=== PATIENT | male | born 1945 | race Caucasian/White ===

== ENCOUNTER 2016-10-28 19:55 | Observation (INO) | payer MEDICAID ==
--- NOTE | 2016-10-28 20:00 | EDPHY ---
HPI/HX/ROS/PE/MDM Narrative: CHIEF COMPLAINT: Chest pain HISTORY OF PRESENT ILLNESS: This patient is a 71-year-old male with history of hypertension and hyperlipidemia who presents to the Emergency Department complaining of acute onset epigastric abdominal pain with radiating chest discomfort beginning at 1130 today and worsening over time. He has a history of GERD and describes his pain as similar in quality to acid reflux episodes but states that the pain is more severe today. He denies radiation of pain to his back, neck, or jaw. He has induced vomiting as this improves his pain for about 5-10 minutes. He reports exertional dyspnea urgent been present for the last several weeks. It is gradually worsening. Denies fever, chills, palpitations, nausea, diarrhea, headache, or lightheadedness. He has a cardiology appointment scheduled for evaluation of right-sided pedal edema but denies any history of heart failure or coronary artery disease. He takes a baby aspirin daily. REVIEW OF SYSTEMS: Aside from elements discussed in the HPI, a comprehensive 10-point review of systems was reviewed and is negative. PAST MEDICAL HISTORY: 1. Hypertension (Diltiazem) 2. Hyperlipidemia (Pravastatin) 3. GERD 4. Remote history of inguinal hernia SOCIAL HISTORY: Lives alone in [place]. Rides his bike frequently. Has spent a lot of time out in the sun recently gardening. PHYSICAL EXAM: VITAL SIGNS: Reviewed by me GENERAL: Well-developed, well-nourished, resting comfortably in no respiratory distress. HEENT: Atraumatic. Eyes: No icterus, no injection. Mouth: moist mucous membranes. No erythema or lesions. Neck: supple with no adenopathy. LUNGS: Clear to auscultation bilaterally, no wheezes, rhonchi or rales. CARDIAC: Regular rate and rhythm, no rubs, murmurs or gallops. ABDOMEN: Soft, mild epigastric tenderness, nondistended, bowel sounds normal. No right upper quadrant tenderness. BACK: No CVA tenderness. EXTREMITIES: No trauma. 1+ edema to RLE, trace edema LLE. Strong pedal pulses bilaterally. Range of motion is normal throughout. NEURO: Alert and oriented, grossly nonfocal. SKIN: Warm and dry, no rash. PSYCHIATRIC: Normal mentation, no agitation. Portions of this note were transcribed by a medical records field technician. I personally performed a history, physical exam, medical decision making, and confirmed accuracy of information the transcribed note. ED Course: 71-year-old male with history of hypertension and hyperlipidemia who presents with epigastric abdominal pain and radiating chest discomfort presenting at 1130 today. No associated nausea, dyspnea, or diaphoresis. He has mild epigastric abdominal pain on exam. Only additional significant finding on exam is 1+ pitting edema to the right lower extremity and trace edema to the left lower extremity. Will proceed with full cardiac evaluation including chest x-ray , labs, and EKG. 324mg PO Aspirin administered. EKG obtained and shows no ischemic changes, as below. Chest x-ray reviewed and is normal. Labs obtained: WBC elevated at 13.72, troponin is negative. Given the patient's history of hypertension and hyperlipidemia, I recommended to him that he stay in the hospital overnight for further cardiac observation. He is agreeable to this. Will also proceed to evaluate possible GI etiology for the patient's complaints. PO Gi Cocktail administered. Will proceed with US of the abdomen. 2221: Consultation with Dr. Astorga, hospitalist, who accepts admission for cardiac monitoring. EKG INTERPRETATION: The 12 lead EKG was interpreted by myself: Sinus rhythm, rate 93; borderline prolonged QT interval; no ischemic changes. See hard copy and/or "tracemaster" electronic copy for interpretation. MDM: After history and physical examination, the differential for patient's presenting complaints was considered, including but not limited to, myocardial ischemia, acute coronary syndrome, biliary colic, cholecystitis, peptic ulcer disease, pancreatitis, and gastroenteritis, reflux. - Data Points Imaging Results: Imaging Impressions Chest X-Ray 10/28/16 20:15 Impression: Normal chest. Imaging: I viewed and interpreted images myself Laboratory Results: Laboratory Results 10/28/16 20:26 10/28/16 20:26 10/28/16 10/28/16 20:26 20:26 WBC 13.72 10^3/uL H 10^3/uL (3.80-9.50) RBC 5.40 10^6/uL 10^6/uL (4.40-6.38) Hgb 15.9 g/dL g/dL (13.7-17.5) Hct 46.7 % % (40.0-51.0) MCV 86.5 fL fL (81.5-99.8) MCH 29.4 pg pg (27.9-34.1) MCHC 34.0 g/dL g/dL (32.4-36.7) RDW 12.4 % % (11.5-15.2) Plt Count 326 10^3/uL 10^3/uL (150-400) MPV 10.1 fL fL (8.7-11.7) Neut % (Auto) 69.8 % % (39.3-74.2) Lymph % (Auto) 24.2 % % (15.0-45.0) Garland % (Auto) 4.8 % % (4.5-13.0) Eos % (Auto) 0.4 % L % (0.6-7.6) Baso % (Auto) 0.4 % % (0.3-1.7) Nucleat RBC Rel Count 0.0 % % (0.0-0.2) Absolute Neuts (auto) 9.58 10^3/uL H 10^3/uL (1.70-6.50) Absolute Lymphs (auto) 3.32 10^3/uL H 10^3/uL (1.00-3.00) Absolute Monos (auto) 0.66 10^3/uL 10^3/uL (0.30-0.80) Absolute Eos (auto) 0.05 10^3/uL 10^3/uL (0.03-0.40) Absolute Basos (auto) 0.06 10^3/uL 10^3/uL (0.02-0.10) Absolute Nucleated RBC 0.00 10^3/uL 10^3/uL (0-0.01) Immature Gran % 0.4 % % (0.0-1.1) Immature Gran # 0.05 10^3/uL 10^3/uL (0.00-0.10) Sodium 144 mEq/L mEq/L (134-144) Potassium 3.7 mEq/L mEq/L (3.5-5.2) Chloride 104 mEq/L mEq/L (97-110) Carbon Dioxide 27 mEq/l mEq/l (22-31) Anion Gap 13 mEq/L mEq/L (8-16) BUN 24 mg/dL H mg/dL (7-23) Creatinine 0.9 mg/dL mg/dL (0.7-1.3) Estimated GFR > 60 Glucose 114 mg/dL H mg/dL (70-100) Calcium 10.6 mg/dL H mg/dL (8.5-10.4) Total Bilirubin 0.9 mg/dL mg/dL (0.1-1.4) Conjugated Bilirubin 0.4 mg/dL mg/dL (0.0-0.5) Unconjugated Bilirubin 0.5 mg/dL mg/dL (0.0-1.1) AST 29 IU/L IU/L (17-59) ALT 38 IU/L IU/L (21-72) Alkaline Phosphatase 124 IU/L IU/L (38-126) Troponin I < 0.012 ng/mL ng/mL (0-0.034) NT-Pro-B Natriuret Pep 157 pg/mL H pg/mL (0-125) Total Protein 7.6 g/dL g/dL (6.3-8.2) Albumin 4.6 g/dL g/dL (3.5-5.0) Lipase 79.0 IU/L IU/L (23-300) Medications Given: Discontinued Medications Al Hydroxide/Mg Hydroxide (Maalox Susp) 30 ml PO ONCE ONE Stop: 10/28/16 20:15 Last Admin: 10/28/16 20:29 Dose: 30 ml Aspirin (Aspirin) 324 mg PO EDNOW ONE Stop: 10/28/16 20:15 Last Admin: 10/28/16 20:28 Dose: 324 mg Hydromorphone HCl (Dilaudid) 0.5 mg IVP EDNOW ONE Stop: 10/28/16 20:58 Last Admin: 10/28/16 20:59 Dose: 0.5 mg Hydromorphone HCl (Dilaudid) 1 mg IVP EDNOW ONE Stop: 10/28/16 21:28 Last Admin: 10/28/16 21:37 Dose: 1 mg Hyoscyamine Sulfate (Levsin, Hyomax-Sl) 0.25 mg PO ONCE ONE Stop: 10/28/16 20:15 Last Admin: 10/28/16 20:28 Dose: 0.25 mg Lidocaine (Lidocaine 2% Viscous) 15 ml PO ONCE ONE Stop: 10/28/16 20:15 Last Admin: 10/28/16 20:29 Dose: 15 ml General Time Seen by Provider: 10/28/16 19:59 Initial Vital Signs: Initial Vital Signs Temperature (C) 36.6 C 10/28/16 20:09 Heart Rate 100 10/28/16 20:09 Respiratory Rate 16 10/28/16 20:09 Blood Pressure 165/100 H 10/28/16 20:09 O2 Sat (%) 95 10/28/16 20:09 O2 Delivery Mode Nasal Cannula O2 (L/minute) 2 Allergies/Adverse Reactions: No Known Allergies Allergy (Unverified 10/28/16 20:09) Home Medications: Medication Instructions Recorded Diltiazem HCl [Diltiazem 24Hr Cd] 360 mg PO DAILY 05/26/16 Pravastatin Sodium 20 mg PO HS 05/26/16 Terazosin HCl [Hytrin 2 MG (*)] 4 mg PO DAILY 05/26/16 Aspirin 81mg (*) 10/28/16 PRILOSEC 10/28/16 Departure - Departure Disposition: [facility] Inpatient Acute Clinical Impression: Epigastric pain, Pedal edema Chest pain Qualifiers: Chest pain type: unspecified Qualified Code(s): R07.9 - Chest pain, unspecified Dyspnea Qualifiers: Dyspnea type: shortness of breath Qualified Code(s): R06.02 - Shortness of breath Condition: Fair Report Scribed for: Katerina Ortiz Report Scribed by: Estephania Tavares Date of Report: 10/28/16 Time of Report: 20:00
--- NOTE | 2016-10-28 20:12 | CPEKG ---
Heart Rate: 99 RR Interval: 606 P-R Interval: 188 QRSD Interval: 106 QT Interval: 372 QTC Interval: 478 P [place]: 68 QRS [place]: 15 T Wave [place]: 49 EKG Severity - BORDERLINE ECG - EKG Impression: SINUS RHYTHM EKG Impression: BORDERLINE PROLONGED QT INTERVAL Electronically Signed By: Martin Frazier 31-Oct-2016 11:57:56
[2016-10-28] MEDS ORDERED: LIDOCAINE 2% VISCOUS 15 ML UDCUP PO ONE (20:14)
[2016-10-28] MEDS ORDERED: ASPIRIN 81 MG CHEWABLE TAB PO ONE (20:14)
[2016-10-28] MEDS ORDERED: MAG HYDROX/AL HYDROX/SIMETH 30 ML UDCUP PO ONE (20:14)
[2016-10-28] MEDS ORDERED: HYOSCYAMINE SULFATE 0.125 MG TAB PO ONE (20:14)
[2016-10-28 20:35] LABS: % IMMATURE GRANULYOCYTES 0.4 % (0.0-1.1); ABSOLUTE IMMATURE GRANULOCYTES 0.05 10^3/uL (0.00-0.10); ADD DIFF? NO; ADD MORPH? NO; ADD SCAN? NO; ATYPICAL LYMPHOCYTE FLAG 0 (0-99); FRAGMENT RBC FLAG 0 (0-99); HEMATOCRIT 46.7 % (40.0-51.0); HEMOGLOBIN 15.9 g/dL (13.7-17.5); LEFT SHIFT FLG 0 (0-99); LIPEMIA HEMOLYSIS FLAG 90 (0-99); MEAN CELL HEMOGLOBIN 29.4 pg (27.9-34.1); MEAN CELL VOLUME 86.5 fL (81.5-99.8); MEAN PLATELET VOLUME 10.1 fL (8.7-11.7); PLATELET CLUMPS FLAG 30 (0-99); PLATELET COUNT 326 10^3/uL (150-400); RED CELL DISTRIBUTION WIDTH 12.4 % (11.5-15.2)
[2016-10-28] MEDS ORDERED: HYDROmorphONE/DILAUDID 1 MG/ML SYR ONE (20:48)
[2016-10-28 20:56] LABS: ALANINE AMINOTRANSFERASE 38 IU/L (21-72); ALBUMIN 4.6 g/dL (3.5-5.0); ALKALINE PHOSPHATASE 124 IU/L (38-126); ANION GAP 13 mEq/L (8-16); ASPARTATE AMINOTRANSFERASE 29 IU/L (17-59); BILIRUBIN,TOTAL 0.9 mg/dL (0.1-1.4); BILIRUBIN-CONJUGATED 0.4 mg/dL (0.0-0.5); BILIRUBIN-UNCONJUGATED 0.5 mg/dL (0.0-1.1); CALCIUM 10.6 mg/dL (8.5-10.4); CARBON DIOXIDE 27 mEq/l (22-31); CHLORIDE 104 mEq/L (97-110); CREATININE 0.9 mg/dL (0.7-1.3); GLOMERULAR FILTRATION RATE > 60; GLUCOSE 114 mg/dL (70-100); POTASSIUM 3.7 mEq/L (3.5-5.2); SODIUM 144 mEq/L (134-144); TOTAL PROTEIN 7.6 g/dL (6.3-8.2)
[2016-10-28] MEDS ORDERED: HYDROmorphONE/DILAUDID 1 MG/ML SYR IVP ONE ×2 (20:57→21:27)
[2016-10-28 21:07] LABS: TROPONIN I < 0.012 ng/mL (0-0.034)
--- NOTE | 2016-10-28 23:19 | CPEKG ---
Heart Rate: 80 RR Interval: 750 P-R Interval: 192 QRSD Interval: 100 QT Interval: 376 QTC Interval: 434 P Left Hand: 72 QRS Left Hand: -17 T Wave Left Hand: 63 EKG Severity - BORDERLINE ECG - EKG Impression: SINUS RHYTHM EKG Impression: PROBABLE LEFT ATRIAL ABNORMALITY EKG Impression: BORDERLINE LEFT AXIS DEVIATION EKG Impression: BORDERLINE T ABNORMALITIES, ANT-LAT LEADS Electronically Signed By: Martin Frazier 31-Oct-2016 11:58:09
[2016-10-28] MEDS ORDERED: HYDROmorphONE/DILAUDID 1 MG/ML SYR IVP PRN (23:38)
[2016-10-28] MEDS: ONDANSETRON 4 MG/2 ML VIAL IVP PRN (23:54)
--- NOTE | 2016-10-29 | GHP ---
[f rep st] HISTORY AND PHYSICAL DATE OF ADMISSION: 10/28/2016 CHIEF COMPLAINT: Epigastric right upper quadrant pain. HISTORY OF PRESENT ILLNESS: A 71-year-old male with a history of hypertension, hyperlipidemia, who presents with sudden onset of epigastric substernal pain the day of presentation. Patient reports i t began at 11:30 in the afternoon. Reports taking a normal breakfast prior to this and feeling well . Patient describes that the pain then radiated to his right upper quadrant, was intermittent. No clear exertional component or pleuritic components to this pain. He did attempt to make himself vom it multiple times thinking that it would relieve the discomfort and it did not, therefore, he presen joan to the emergency department. Patient does note that recently he has had decreased exercise tole kayla, has been more fatigued with simple exertional tasks and activities of exercise that he otherw ise would not have had difficulty with. Describes occasional asymmetric edema left greater than rig ht. Patient did have 2 episodes of forced emesis today that he described as nonbloody. Denies any diarrhea. Denies any dysuria, hematuria, hematochezia. Denies any previous history of gallbladder disease. Patient has had a stress test, but over 15 years ago. PAST MEDICAL HISTORY: 1. Hypertension. 2. Hyperlipidemia. 3. Arthritis. SOCIAL HISTORY: The patient smoked for approximately 30 years, but has been away from tobacco for o marisela 28. Denies alcohol, illicit drugs, or marijuana. FAMILY HISTORY: Father had a heart attack in his 70s. ADVANCED DIRECTIVES: Patient is full cor, full tube. REVIEW OF SYSTEMS: A 10-point review of systems is negative with the exception of that reported in the HPI. PHYSICAL EXAMINATION: VITAL SIGNS: Blood pressure 137/80, heart rate 78, respiratory rate 16, 97% on 2 L, 36.7. GENERAL: This is a pleasant-appearing elderly male lying flat in bed. HEENT: Notab le for moist mucous membranes. Eye exam is negative for any icterus. CARDIAC: Patient is regular rate and rhythm. PULMONARY: Good respiratory effort. Clear to auscultation bilaterally. GASTROIN TESTINAL: Patient is obese. Abdomen is soft. He has normal bowel sounds. He is tender to palpati on in the epigastrium and right upper quadrant. No rebound or guarding is appreciated. MUSCULOSKEL ETAL: No notable lower extremity edema. SKIN: Negative for any rashes. NEUROLOGIC: He is alert and oriented x3. PSYCHIATRIC: He seems anxious, but cooperative on interview and examination. DATA REVIEWED: White count 13.7, creatinine 0.9, BUN 24. Troponin 0.012. Lipase is 79. EKG, whic h I personally reviewed and interpreted, shows sinus rhythm, normal axis, normal intervals, T-wave i nversions are appreciated V1 and V2. Otherwise, no acute ST-T changes. Chest x-ray, which I person ally reviewed and interpreted, shows no acute infiltrates or edema. ASSESSMENT AND PLAN: This is a 71-year-old male with a history of hypertension, hyperlipidemia, pre senting with epigastric pain. 1. Epigastric pain/substernal pain. It is difficult to tell if this is cardiac in origin or more g astrointestinal in origin. Will diagnostically workup both possible etiologies, admit the patient f or serial troponins and EKGs overnight. Will treat with proton pump inhibitors, order a right upper quadrant ultrasound. If the patient rules out overnight, I think it is reasonable to get a Lexisca n in the morning because it will not only take cardiac ischemia off our list, but additionally show us the patient's ejection fraction as an alternate explanation for some of his exertional complaints preceding this. 2. Fatigue. The patient describes increased exercise intolerance. Will check a TSH, as well as th e cardiac workup outlined above. 3. Hypertension. Patient's blood pressures seem adequately controlled currently. Will continue hi s home medications once reconciled. 4. Hyperlipidemia. We will check fasting lipids and continue home medications. 5. Prophylaxis. Patient is ambulating. 6. Diet. Cardiac. DISPOSITION: I expect less than 2 midnights if the patient's diagnostic workup is negative. I have discussed the case with the emergency room physician. Patient will be triaged to the [facility] for cardiac monitoring and rule out. /[id number]/MODL
[2016-10-29] MEDS: PANTOPRAZOLE SODIUM 40 MG TAB PO SCH ×2 (00:05→08:26)
[2016-10-29] MEDS: HYDROCODONE/APAP 5/325 TAB PO PRN ×5 (00:05→12:22)
[2016-10-29 04:25] LABS: CHOLESTEROL 110 mg/dL (140-220); CHOLESTEROL/HDL RATIO 2.89 RATIO (1.00-4.97); HIGH DENSITY LIPOPROTEIN 38 mg/dL (40-65); LDL/HDL RATIO 1.58 RATIO (1.00-3.64); LOW DENSITY LIPOPROTEIN 60 mg/dL (80-100); NON-HIGH DENSITY LIPOPROTEIN 72 mg/dL (90-129); TRIGLYCERIDE 60 mg/dL (40-150); VERY LOW DENSITY LIPOPROTEINS 12 mg/dL (8-25)
[2016-10-29] MEDS: ONDANSETRON 4 MG/2 ML VIAL IVP PRN ×2 (04:59→10:40)
[2016-10-29] MEDS ORDERED: REGADENOSON 0.4 MG/5 ML SYR IVP ONE (09:42)
--- NOTE | 2016-10-29 10:08 | PDCARST ---
CAR Stress Test Results Type of Stress Test: Lexiscan Indication: cp Description of Procedure: After informed consent was obtained, pt was established to ECG, blood pressure, HR and oximetry monitoring. STRESS EKG AND HEMODYNAMIC DATA. Resting heart rate: 74BPM. Resting ECG: SR. Resting blood pressure: 130/60 mmHg. O2 saturation at rest: 93%. Peak heart rate: 92BPM. Peak blood pressure: 128/60 mmHg. Arrhythmias: none. Symptoms: The patient experienced no typical symptoms of angina during stress or recovery. Stress/Infusion ECG: No change in rhythm with no significant ST/T wave changes. Stress/infusion O2 saturation: 97% Impression: Uneventful Lexiscan infusion. Conclusion: Await nuclear images.
[2016-10-29 12:25] LABS: % IMMATURE GRANULYOCYTES 0.3 % (0.0-1.1); ABSOLUTE IMMATURE GRANULOCYTES 0.03 10^3/uL (0.00-0.10); ADD DIFF? NO; ADD MORPH? NO; ADD SCAN? NO; ATYPICAL LYMPHOCYTE FLAG 0 (0-99); FRAGMENT RBC FLAG 0 (0-99); HEMATOCRIT 41.7 % (40.0-51.0); HEMOGLOBIN 13.8 g/dL (13.7-17.5); LEFT SHIFT FLG 0 (0-99); LIPEMIA HEMOLYSIS FLAG 80 (0-99); MEAN CELL HEMOGLOBIN 29.6 pg (27.9-34.1); MEAN CELL HEMOGLOBIN CONCENTR. 33.1 g/dL (32.4-36.7); MEAN CELL VOLUME 89.5 fL (81.5-99.8); PLATELET CLUMPS FLAG 0 (0-99); PLATELET COUNT 249 10^3/uL (150-400); RED BLOOD CELL COUNT 4.66 10^6/uL (4.40-6.38); RED CELL DISTRIBUTION WIDTH 12.8 % (11.5-15.2)
[2016-10-29] MEDS ORDERED: DILTIAZEM CD 180 MG CAP PO SCH (13:30)
[2016-10-29] MEDS ORDERED: NON-FORMULARY NEW DRUG (Omeprazole [Prilosec 20 Mg] 20 MG) PO SCH (13:30)
[2016-10-29] MEDS ORDERED: FLUTICASONE NASAL 120 SPRAYS/16 GM MDI EACHNARE SCH (13:30)
[2016-10-29 14:11] VITALS: BP 145/87; PULSE 68; RESP 16; TEMP 97.2; O2SAT 96
[2016-10-29] MEDS ORDERED: PRAVASTATIN SODIUM 20 MG TAB PO SCH (21:00)
--- NOTE | 2016-10-29 21:54 | GDS ---
[f rep st] DISCHARGE SUMMARY DISCHARGE DIAGNOSES: 1. Chest pain, likely noncardiac. 2. Gastroesophageal reflux disease. 3. Hypertension. 4. Hyperlipidemia. CONSULTANTS: None. IMAGING STUDIES/PROCEDURES: 1. Abdomen ultrasound, October 28, 2016, showed a mildly prominent common bile duct without gallstones or features of acute cholecystitis. This may be secondary to the patient's age. 2. A nuclear medicine myocardial perfusion scan, October 29, 2016, showed normal left ventricular ejection fraction of 63%. No evidence of ischemia or infarct, and no focal wall motion abnormalities. HISTORY: For details please see the history and physical dated October 28, 2016. In brief, the patient is a 71-year-old male, with a history of hypertension and hyperlipidemia, who presents to the emergency department with epigastric and substernal pain. Given his cardiac risk factors, he was admitted to the hospital for further evaluation. HOSPITAL COURSE: The patient was admitted to the [facility]. His initial EKG and followup EKGs were nonischemic. He had 2 negative troponins. He underwent cardiac stress testing, which was negative for acute ischemia, essentially ruling out an acute coronary syndrome. Consideration was given to a GI source of his pain. He had normal liver function tests, and though he had a prominent common bile duct on his imaging, there was no evidence of gallstones, and certainly no evidence of biliary obstruction. He was also afebrile, and was nontender in the right upper quadrant on exam. I suspect his symptoms may be related to gastritis. H. pylori antibody was negative. He was discharged home with oral proton-pump inhibitor therapy and Zofran, and is advised to have close followup with his primary care physician for consideration of referral to a diver assistant if his symptoms persist, as he may warrant an upper endoscopy. DISPOSITION: Patient is discharged home in stable condition. FOLLOWUP: Patient is instructed to follow up with his primary care physician in 5-7 days. He is also referred to Dr. Carlos Manuel Dominguez, Gastroenterology at [facility], should his symptoms persist to discuss possible upper endoscopy. DISCHARGE MEDICATIONS: Please see [facility] for completed outpatient medication list. New medications on discharge include Prilosec 20 mg p.o. twice daily, #60 , no refills, and Zofran 4 mg p.o. q.6 hours p.r.n., #20, no refills. He will continue all other outpatient medications as prescribed. Discontinued medications include naproxen, as this may worsen his symptoms if indeed they are from a gastritis source. /[id number]/MODL ANTON
[2016-10-30] MEDS ORDERED: TERAZOSIN HCL 2 MG CAP PO SCH (09:00)
[2016-10-30] MEDS ORDERED: PANTOPRAZOLE SODIUM 40 MG TAB PO SCH (09:00)
== END 2016-10-29 15:03 | disposition home or self-care (01) ==
LOC: F1N 23:27
PROVIDERS: ADMIT Hospitalist; ATTEND Hospitalist
DX: R07.89 Other chest pain (principal); K21.9 Gastro-esophageal reflux disease without esophagitis; I10 Essential (primary) hypertension; E78.5 Hyperlipidemia, unspecified
CPT/HCPCS: 71020; 76705; 78452; 93005; 93017; A9500; G0378; 96374; J1170; J2405; J2785

== ENCOUNTER 2017-07-12 21:23 | Inpatient (IN) | payer MEDICAID ==
--- NOTE | 2017-07-12 21:36 | CPEKG ---
Heart Rate: 89 RR Interval: 674 P-R Interval: 164 QRSD Interval: 102 QT Interval: 364 QTC Interval: 443 P Parker: 61 QRS Parker: 0 T Wave Parker: 54 EKG Severity - BORDERLINE ECG - EKG Impression: SINUS RHYTHM EKG Impression: BORDERLINE T ABNORMALITIES, ANT-LAT LEADS EKG Impression: Unchanged from previous Electronically Signed By: Oscar Miller 12-Jul-2017 21:58:41
[2017-07-12] MEDS ORDERED: HYOSCYAMINE SULFATE 0.125 MG TAB PO ONE (21:46)
[2017-07-12] MEDS ORDERED: MAG HYDROX/AL HYDROX/SIMETH 30 ML UDCUP PO ONE (21:46)
[2017-07-12] MEDS ORDERED: LIDOCAINE 2% VISCOUS 15 ML UDCUP PO ONE (21:46)
[2017-07-12 21:50] LABS: PLATELET COUNT 313 10^3/uL (150-400)
[2017-07-12] MEDS ORDERED: ONDANSETRON 4 MG/2 ML VIAL ONE (21:51)
[2017-07-12] MEDS: ASPIRIN 81 MG CHEWABLE TAB PO ONE ×2 (21:53→23:53)
--- NOTE | 2017-07-12 21:53 | EDPHY ---
H & P Stated Complaint: CHEST PAIN INTO RIGHT SHOULDER, X3 HRS, FEELS DIZZY, DIDNT FEEL WELL TODAY Source: Patient Exam Limitations: No limitations - Personal History Current Tetanus/Diphtheria Vaccine: Yes - Medical/Surgical History Hx Asthma: Yes Hx Chronic Respiratory Disease: No Hx Diabetes: No Hx Cardiac Disease: No Hx Renal Disease: No Hx Cirrhosis: No Hx Alcoholism: No Hx HIV/AIDS: No Hx Splenectomy or Spleen Trauma: No Other PMH: PSHx: hernia repair, tonsillectomy/adenoidectomy. PMHx: high cholesterol, arthritis, prostate problems, memory issues, HTN - Family History Significant Family History: No pertinent family hx - Social History Smoking Status: Former smoker Alcohol Use: Sober Time Seen by Provider: 07/12/17 21:46 HPI/ROS: CHIEF COMPLAINT: Chest pain HISTORY OF PRESENT ILLNESS: Patient is a 71-year-old man who comes to the emergency department complaining of epigastric chest pain that radiates to his right shoulder. He also complains of intermittent visual loss. He states that this has happened multiple times over last 4 hr. He cannot figure out a pattern if it happens when his pain intensifies or if he stands up and cetera. He has been nauseous but has not vomited. No headache. He denies history of cardiac disease. He does have hypertension. No focal weakness or deficits. REVIEW OF SYSTEMS: Constitutional: denies: chills, fever, recent illness, recent injury EENTM: denies: blurred vision, double vision, nose congestion Respiratory: denies: cough, shortness of breath Cardiac: See HPI denies: irregular heart rate, lightheadedness, palpitations Gastrointestinal/Abdominal: denies: abdominal pain, diarrhea, nausea, vomiting, blood streaked stools Genitourinary: denies: dysuria, frequency, hematuria, pain Musculoskeletal: denies: joint pain, muscle pain Skin: denies: lesions, rash, jaundice, bruising Neurological: denies: headache, numbness, paresthesia, tingling, dizziness, weakness Hematologic/Lymphatic: denies: blood clots, easy bleeding, easy bruising Immunologic/allergic: denies: HIV/AIDS, transplant EXAM: GENERAL: Well-appearing, well-nourished and in no acute distress. HEAD: Atraumatic, normocephalic. EYES: Pupils equal round and reactive to light, extraocular movements intact, sclera anicteric, conjunctiva are normal. Normal appearing retina ENT: TMs normal, nares patent, oropharynx clear without exudates. Moist mucous membranes. NECK: Normal range of motion, supple without lymphadenopathy or JVD. LUNGS: Breath sounds clear to auscultation bilaterally and equal. No wheezes rales or rhonchi. HEART: Regular rate and rhythm without murmurs, rubs or gallops. ABDOMEN: Soft, nontender, normoactive bowel sounds. No guarding, no rebound. No masses appreciated. BACK: No CVA tenderness, no spinal tenderness, step-offs or deformities EXTREMITIES: Normal range of motion, no pitting or edema. No clubbing or cyanosis. NEUROLOGICAL: Cranial nerves II through XII grossly intact. Normal speech, normal gait. 5/5 strength, normal movement in all extremities, normal sensation PSYCH: Normal mood, normal affect. SKIN: Warm, dry, normal turgor, no visible rashes or lesions. (Oscar Miller) Constitutional: Initial Vital Signs Heart Rate 95 07/12/17 21:25 Respiratory Rate 20 07/12/17 21:25 Blood Pressure 167/77 H 07/12/17 21:25 O2 Sat (%) 94 07/12/17 21:25 O2 Delivery Mode Room Air O2 (L/minute) 2 Allergies/Adverse Reactions: No Known Allergies Allergy (Unverified 07/12/17 21:39) Home Medications: Medication Instructions Recorded Terazosin HCl [Hytrin 2 MG (*)] 4 mg PO DAILY 05/26/16 Aspirin [Aspirin 81mg (*)] 81 mg PO DAILY 10/28/16 Fluticasone Nasal [Flonase Nasal 2 sprays [place] DAILY 10/29/16 [place]] Atorvastatin Calcium [Lipitor 40 40 mg PO DAILY 07/12/17 mg (*)] Diltiazem Xr [Dilacor Xr] 180 mg PO BID@07/12/17 Losartan Potassium [Cozaar 50 mg 50 mg PO DAILY 07/12/17 (*)] Acetaminophen [Tylenol ES 500 mg 1,000 mg PO DAILY 07/13/17 (*)] Multivitamins [Multivitamin (*)] 1 each PO DAILY 07/13/17 Omeprazole Magnesium [Prilosec Otc] 20 mg PO DAILY 07/13/17 Medical Decision Making - Diagnostics Imaging: Discussed imaging studies w/ hull sorter Radiologist - Diagnostics EKG Interpretation: An EKG obtained and was read and documented in trace view. Please see trace view for full reading and report. Sinus rhythm, no acute ischemic changes ( Oscar Miller) Imaging Results: Imaging Impressions Myocardial Perfusion Scan Nuc Med 07/13/17 10:44 Impression: 1. Normal left ventricular ejection fraction of 67%. 2. No focal wall motion abnormalities. 3. No definite ischemia or infarct. Cosign: Dr. Louie Aguirre ED Course/Re-evaluation: 1205: Patient was signed over to me at 11:00 p.m. shift change by Dr. Miller to follow-up CT head and CT angiogram of the chest the CT angiogram of the chest shows no evidence of pulmonary embolism or aortic dissection. The CT of the head is unremarkable as well. I have talked to the hospitalist service Dr. Frank, who agrees to admit this patient for further cardiac evaluation given his chest discomfort. Patient has agreed for admission. (Rishi Willams) Patient L tells me that his vision is not vision loss but is fuzzy vision and that it does correlate to his episodes of worsening chest pain. He is currently feeling much better after GI cocktail. He refused aspirin (Oscar Miller) Differential Diagnosis: Partial list of the Differential diagnosis considered include but were not limited to; acute coronary disease, PE, GERD and although unlikely based on the history and physical exam, I also considered dissection, pneumothorax, pneumonia. (Oscar Miller) - Data Points Laboratory Results: Laboratory Results 07/13/17 09:56 07/12/17 21:35 Medications Given: Acetaminophen (Tylenol) 650 mg PO Q4HRS PRN PRN Reason: Pain, Mild/Fever, Can Take PO Stop: 01/08/18 23:39 Last Admin: 07/13/17 00:21 Dose: 650 mg Hydrocodone Bitart/Acetaminophen ([place] 5/325) 1 - 2 tab PO Q3HRS PRN PRN Reason: Pain, Moderate Able to Take PO Stop: 07/22/17 23:39 Last Admin: 07/14/17 19:55 Dose: 2 tab Aspirin (Aspirin) 325 mg PO DAILY C[facility]IAN Stop: 01/10/18 08:59 Last Admin: 07/14/17 09:36 Dose: 325 mg Atorvastatin Calcium (Lipitor) 40 mg PO DAILY [facility] Stop: 01/09/18 10:44 Last Admin: 07/14/17 09:36 Dose: 40 mg Diltiazem HCl (Cardizem Er Q24hr) 180 mg PO BID@ [facility] Stop: 01/09/18 17:59 Last Admin: 07/14/17 18:41 Dose: 180 mg Enoxaparin Sodium (Lovenox) 40 mg SC DAILY CRISTIAN Stop: 01/09/18 08:59 Last Admin: 07/14/17 09:36 Dose: 40 mg Fluticasone Propionate (Flonase Nasal [place]) 2 sprays E[place] DAILY C[facility]STIAN Stop: 01/10/18 08:59 Last Admin: 07/14/17 12:37 Dose: 2 sprays Losartan Potassium (Cozaar) 50 mg PO DAILY [facility] Stop: 01/10/18 08:59 Last Admin: 07/14/17 09:36 Dose: 50 mg Multivitamins (Tab-A-Sergey) 1 each PO DAILY CRISTIAN Stop: 01/10/18 08:59 Last Admin: 07/14/17 09:36 Dose: 1 each Ondansetron HCl (Zofran) 4 mg IVP Q4HRS PRN PRN Reason: Nausea/Vomiting, Can't Take PO Stop: 01/08/18 23:39 Last Admin: 07/14/17 14:03 Dose: 4 mg Pantoprazole Sodium (Protonix) 40 mg PO DAILY C[facility]IAN Stop: 01/10/18 08:59 Last Admin: 07/14/17 09:36 Dose: 40 mg Terazosin HCl (Hytrin) 4 mg PO DAILY C[facility]STIAN Stop: 01/10/18 08:59 Last Admin: 07/14/17 09:35 Dose: 4 mg Discontinued Medications Hydrocodone Bitart/Acetaminophen ([place] 5/325) 1 - 2 tab PO Q4HRS PRN PRN Reason: Pain, Moderate Able to Take PO Stop: 07/22/17 23:39 Last Admin: 07/13/17 09:42 Dose: 2 tab Al Hydroxide/Mg Hydroxide (Maalox Susp) 30 ml PO ONCE ONE Stop: 07/12/17 21:47 Last Admin: 07/12/17 21:54 Dose: 30 ml Aspirin (Aspirin) 324 mg PO EDNOW ONE Stop: 07/12/17 21:47 Last Admin: 07/12/17 23:53 Dose: Not Given Aspirin (Aspirin) 81 mg PO EDNOW ONE Stop: 07/12/17 23:47 Last Admin: 07/12/17 23:57 Dose: 81 mg Hyoscyamine Sulfate (Levsin, Hyomax-Sl) 0.25 mg PO ONCE ONE Stop: 07/12/17 21:47 Last Admin: 07/12/17 21:53 Dose: 0.25 mg Lidocaine (Lidocaine 2% Viscous) 15 ml PO ONCE ONE Stop: 07/12/17 21:47 Last Admin: 07/12/17 21:53 Dose: 15 ml Departure - Departure Disposition: [facility] Inpatient Acute Clinical Impression: Chest pain Qualifiers: Chest pain type: unspecified Qualified Code(s): R07.9 - Chest pain, unspecified Condition: Fair
[2017-07-12 22:08] LABS: INR 0.99 (0.83-1.16); PROTIME(PATIENT) 13.3 SEC (12.0-15.0)
[2017-07-12] MEDS ORDERED: IOPAMIDOL (ISOVUE 370) 100 ML BTL IV ONE (22:47)
[2017-07-12] MEDS ORDERED: ACETAMINOPHEN 325 MG TAB PO PRN (23:40)
[2017-07-12] MEDS ORDERED: ONDANSETRON 4 MG/2 ML VIAL IVP PRN (23:40)
[2017-07-12] MEDS ORDERED: NS 1,000 ML IV SCH (23:45)
[2017-07-12] MEDS ORDERED: ASPIRIN 81 MG CHEWABLE TAB PO ONE (23:46)
[2017-07-12] MEDS ORDERED: NITROGLYCERIN 0.4 MG BTL SL PRN (23:46)
--- NOTE | 2017-07-12 23:54 | PDGENHP ---
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 Case was discussed with ED provider and EMR was reviewed. HPI - pleasant 71-year-old gentleman with past medical history significant for HTN, HLD, asthma, short-term memory deficits, TBI who presents to the emergency department today with complaints of epigastric lower sternal pain for the last 3 hr prior to arrival. Patient also noted some radiating pain to into his right shoulder and down his arm. He reports some associated nausea without vomiting. Some dizziness with blurry type vision no visual loss. Patient also notes increasing headache but no focal deficits. Patient did become increasingly concerned when he found that he was having trouble recalling his date of . Patient describes his epigastric pain as squeezing pressure and prior to arrival became quite severe. Patient without any previous history of typical anginal type symptoms. He reports that he had a treadmill stress test completed many years ago. Patient received a GI cocktail in the emergency department with some improvement in pain. Upon interview on PCU unit patient reports some very mild discomfort and resolution of his nausea. Patient without any recent fevers/chills. He denies any diarrhea or abdominal pain. History Information - Allergies/Home Medication List Allergies/Adverse Reactions: No Known Allergies Allergy (Unverified 07/12/17 21:39) Home Medications: Diltiazem HCl [Diltiazem 24Hr Cd] 360 mg PO DAILY 05/26/16 [Last Taken 10/28/16] Terazosin HCl [Hytrin 2 MG (*)] 4 mg PO DAILY 05/26/16 [Last Taken 10/28/16] Aspirin [Aspirin 81mg (*)] 81 mg PO DAILY 10/28/16 [Last Taken 10/28/16] Fluticasone Nasal [Flonase Nasal [place]] 2 sprays EACHNARE DAILY 10/29/16 [Last Taken Unknown] Atorvastatin Calcium 07/12/17 [Last Taken Unknown] Diltiazem 07/12/17 [Last Taken Unknown] Losartan Potassium 07/12/17 [Last Taken Unknown] I have personally reviewed and updated: family history, medical history, social history, surgical history - Past Medical History Additional medical history: HTN height, HLD, asthma, short-term memory deficits , TBI, meniscal tear in the right knee with chronic knee pain. Osteoarthritis. - Surgical History Additional surgical history: Hernia repair-tonsillectomy and adenoidectomy, right eye trauma - Family History Additional family history: Father with hypertension versus cardiac disease age 60s and alcohol abuse. Patient notes he has was not close to his father in adulthood so he is not entirely sure on the details but does not believe it was an acute [place]. He denies any known family history of cancer - Social History Smoking Status: Former smoker (Patient smoked for 35 years and quit many years ago.) Tobacco Use: Cigarettes Alcohol Use: Sober Drug Use: None Review of Systems Review of Systems: ROS: 10pt was reviewed & negative except for what was stated in HPI & below Constitutional: Denies: chills, fever EENMT: Reports: blurred vision. Denies: nose congestion, sore throat Cardiac: Reports: chest pain, edema (The edema today.), lightheadedness. Denies : palpitations, syncope Respiratory: Reports: shortness of breath (Concerns for shortness patient's roommate work of breathing). Denies: cough, wheezing Gastrointestinal: Reports: nausea. Denies: vomitting, black stools, rectal bleeding, abdominal pain, diarrhea Genitourinary: Reports: other (hesitancy). Denies: dysuria, hematuria, incontinence Muscolosketal: Reports: joint pain (Right knee). Denies: back pain Skin: Reports: no symptoms, rash Neurological: Reports: headache, other (Reports some confusion during episode but no focal deficits.). Denies: anxiety, depressed, numbness, tingling, weakness Hematologic/Lymphatic: Denies: anemia, easy bleeding Physical Exam Physical Exam: Selected Entries 07/12/17 21:25 Blood Pressure Automatic Method Heart Rate 95 Respiratory 20 Rate O2 Sat (%) 94 Blood Pressure 167/77 H Mean Arterial 107 H Pressure (MAP) O2 Delivery Room Air Mode Temperature Oral Source Temp Pulse Resp BP Pulse Ox 85 18 139/79 H 96 07/12/17 23:44 07/12/17 23:44 07/12/17 23:44 07/12/17 23:44 O2 (L/minute) 2 Constitutional: no apparent distress, chronically ill appearing, other Eyes: PERRL, anicteric sclera, EOMI, No scleral injection Ears, Nose, Mouth, Throat: moist mucous membranes Cardiovascular: regular rate and rhythym, no murmur, rub, or gallop, pulses symmetric bilaterally, edema (1+ bilateral), No systolic murmur Peripheral Pulses: 1+: dorsalis-pedis (R), dorsalis-pedis (L) Respiratory: no respiratory distress, no rales or rhonchi, clear to auscultation , No reduced air movement, No expiratory wheeze Gastrointestinal: normoactive bowel sounds, soft, non-tender abdomen, no palpable masses, No guarding, No distension Genitourinary: no bladder tenderness, No drummond in urethra Skin: warm, normal color, no rashes or abrasions, No rash Musculoskeletal: full muscle strength, joint tenderness (right knee), pain with ROM (right knee), No generalized weakness Neurologic: AAOx3, sensation intact bilaterally, No weakness Psychiatric: interacting appropriately, not encephalopathic, thought process linear, anxious, poor memory (reported), No depressed Lab Data & Imaging Review 07/12/17 21:35 07/12/17 21:35 WBC 16.65 10^3/uL (3.80-9.50) H 07/12/17 21:35 RBC 5.22 10^6/uL (4.40-6.38) 07/12/17 21:35 Hgb 15.7 g/dL (13.7-17.5) 07/12/17 21:35 Hct 45.2 % (40.0-51.0) 07/12/17 21:35 MCV 86.6 fL (81.5-99.8) 07/12/17 21:35 MCH 30.1 pg (27.9-34.1) 07/12/17 21:35 MCHC 34.7 g/dL (32.4-36.7) 07/12/17 21:35 RDW 11.8 % (11.5-15.2) 07/12/17 21:35 Plt Count 313 10^3/uL (150-400) 07/12/17 21:35 MPV 9.6 fL (8.7-11.7) 07/12/17 21:35 Neut % (Auto) 69.3 % (39.3-74.2) 07/12/17 21:35 Lymph % (Auto) 23.2 % (15.0-45.0) 07/12/17 21:35 [place] % (Auto) 5.1 % (4.5-13.0) 07/12/17 21:35 Eos % (Auto) 1.7 % (0.6-7.6) 07/12/17 21:35 Baso % (Auto) 0.4 % (0.3-1.7) 07/12/17 21:35 Nucleat RBC Rel Count 0.0 % (0.0-0.2) 07/12/17 21:35 Absolute Neuts (auto) 11.53 10^3/uL (1.70-6.50) H 07/12/17 21:35 Absolute Lymphs (auto) 3.87 10^3/uL (1.00-3.00) H 07/12/17 21:35 Absolute Monos (auto) 0.85 10^3/uL (0.30-0.80) H 07/12/17 21:35 Absolute Eos (auto) 0.28 10^3/uL (0.03-0.40) 07/12/17 21:35 Absolute Basos (auto) 0.07 10^3/uL (0.02-0.10) 07/12/17 21:35 Absolute Nucleated RBC 0.00 10^3/uL (0-0.01) 07/12/17 21: Immature Gran % 0.3 % (0.0-1.1) 07/12/17 21: Immature Gran # 0.05 10^3/uL (0.00-0.10) 07/12/17 21:35 PT 13.3 SEC (12.0-15.0) 07/12/17 21:35 INR 0.99 (0.83-1.16) 07/12/17 21:35 APTT 27.0 SEC (23.0-38.0) 07/12/17 21:35 D-Dimer 0.67 ug/mLFEU (0.00-0.50) H 07/12/17 21:35 Sodium 140 mEq/L (135-145) 07/12/17 21:35 Potassium 4.1 mEq/L (3.5-5.2) 07/12/17 21:35 Chloride 105 mEq/L (97-110) 07/12/17 21:35 Carbon Dioxide 22 mEq/l (22-31) 07/12/17 21:35 Anion Gap 13 mEq/L (8-16) 07/12/17 21:35 BUN 17 mg/dL (7-23) 07/12/17 21:35 Creatinine 0.9 mg/dL (0.7-1.3) 07/12/17 21:35 Estimated GFR > 60 07/12/17 21:35 Glucose 137 mg/dL (70-100) H 07/12/17 21:35 Calcium 9.9 mg/dL (8.5-10.4) 07/12/17 21:35 Total Bilirubin 0.8 mg/dL (0.1-1.4) 07/12/17 21:35 Conjugated Bilirubin 0.4 mg/dL (0.0-0.5) 07/12/17 21:35 Unconjugated Bilirubin 0.4 mg/dL (0.0-1.1) 07/12/17 21:35 AST 24 IU/L (17-59) 07/12/17 21:35 ALT 44 IU/L (21-72) 07/12/17 21:35 Alkaline Phosphatase 117 IU/L (38-126) 07/12/17 21:35 Troponin I < 0.012 ng/mL (0.000-0.034) 07/12/17 21:35 NT-Pro-B Natriuret Pep 110 pg/mL (0-125) 07/12/17 21:35 Total Protein 7.3 g/dL (6.3-8.2) 07/12/17 21:35 Albumin 4.2 g/dL (3.5-5.0) 07/12/17 21:35 Lipase 54 IU/L (23-300) 07/12/17 21:35 Imaging Review: Chest, Two Views at 2120 hours History: Chest pain Comparison: September 2016 Findings: Cardiac silhouette is within normal range. Atherosclerotic thoracic aorta. No definite pneumonia. No congestive heart failure, pleural effusion, or pneumothorax. Impression: 1. Atherosclerotic thoracic aorta. 2. No acute pulmonary disease. CT Brain (Without Contrast) at 2258 hours History: Chest Pain , headache, possible subarachnoid hemorrhage. Comparison: None. Technique: Axial computed tomographic images of the brain without contrast. Dose reduction techniques were utilized. Findings: Ventricles, cisterns, and sulci are widened consistent with atrophy. No hydrocephalus, midline shift/herniation, or epidural/subdural hematomas. No acute intraparenchymal hemorrhage or mass effect. Cerebrovascular atherosclerosis. Bone windows demonstrate no displaced fractures. Moderate mucosal thickening left maxillary and bilateral ethmoid sinuses. Impression: 1. Minimal atrophy. 2. No acute hemorrhage, hydrocephalus, or mass effect. 3. Cerebrovascular atherosclerosis. 4. No definite acute infarct. 5. Moderate sinusitis. 2. No subarachnoid hemorrhage. CT Brain (Without Contrast) at 2258 hours History: Chest Pain , headache, possible subarachnoid hemorrhage. Comparison: None. Technique: Axial computed tomographic images of the brain without contrast. Dose reduction techniques were utilized. Findings: Ventricles, cisterns, and sulci are widened consistent with atrophy. No hydrocephalus, midline shift/herniation, or epidural/subdural hematomas. No acute intraparenchymal hemorrhage or mass effect. Cerebrovascular atherosclerosis. Bone windows demonstrate no displaced fractures. Moderate mucosal thickening left maxillary and bilateral ethmoid sinuses. Impression: 1. Minimal atrophy. 2. No acute hemorrhage, hydrocephalus, or mass effect. 3. Cerebrovascular atherosclerosis. 4. No definite acute infarct. 5. Moderate sinusitis. 2. No subarachnoid hemorrhage. Visualized and Interpreted EKG results: Yes EKG Interpretation: Positive for: normal sinsus rhythm (NSR in the 80s. Nonspecific T-wave changes in anterior her lateral leads. Twave 2 inversions in anterior leads and less than [address]-depression in lead v6. ) Assessment & Plan Assessment: Assessment and plan-pleasant 71-year-old gentleman who presents with lower sternal epigastric chest pain. #chest pain - no evidence of acute [place] currently. Differential diagnosis including angina vs. MSK vs. GI. CT negative for evidence of PE or pneumonia. pt reports nausea improved after GI cocktail however may no difference to patient's pain level. Will trend cardiac enzymes in the morning. Monitor on telemetry. Patient's heart score is 3-4. Patient is unsure of his family history but believes there is some cardiac disease and father starting age 60s. Will plan to have patient undergo nuclear medicine stress testing if rolled out later this morning. Patient is unable to complete a treadmill stress test secondary to history of meniscal tear in the right knee and chronic pain. #benign essential HTN - blood pressure is elevated upon arrival to the emergency department however these have improved. Patient is on losartan, diltiazem. Blood pressures are normalizing will continue to monitor resume his home medications in the morning. #HLD - resume statin when med list reconciled. Check lipid panel. #leukocytosis - likely reactive. Patient is afebrile. Repeat CBC in the morning. #hyperglycemia - based on nonfasting lab. check A1c in a.m. #atherosclerosis aorta - noted on imaging. Stress testing as noted above. #Chronic right knee pain 2/2 meniscal tears. Patient reporting increasing pain. Supportive care. K-pad. Patient with outpatient plans for steroid injections with his orthopedic surgeon. # acute on chronic in memory deficit-patient without any neurologic deficits and CT head is negative. Low suspicion for acute CVA or TIA. Patient is concerned regarding progressive memory decline. Will request OTC assistance with completion of MMSE. Patient is currently oriented to person place and time. #gerd - resume PPI when diet advanced. FEN - NPO after midnight. IV fluids for gentle hydration overnight. Electrolytes will be monitored and replaced if needed. PPX - SCDs Lovenox if patient should stay additional day. COR - full. Dispo - admit to observation on PCU for close telemetry monitoring pending cardiac evaluation.
[2017-07-13] MEDS: HYDROCODONE/APAP 5/325 TAB PO PRN ×5 (01:17→20:03)
[2017-07-13] MEDS: ENOXAPARIN 40 MG/0.4 ML SYR SC SCH (08:31)
[2017-07-13 10:02] LABS: PLATELET COUNT 276 10^3/uL (150-400)
[2017-07-13] MEDS ORDERED: REGADENOSON 0.4 MG/5 ML SYR IVP ONE (11:07)
[2017-07-13] MEDS: ATORVASTATIN CALCIUM 40 MG TAB PO SCH (13:16)
--- NOTE | 2017-07-13 14:52 | CPR ---
[f rep st] NONINVASIVE CARDIAC PROCEDURE REPORT DATE OF PROCEDURE: 07/13/2017 INDICATIONS: The patient is 71 years old and presents with symptoms of chest discomfort. PROCEDURE: Lexiscan myocardial perfusion imaging. TECHNIQUE: In the fasting state, the patient was brought to Radiology. He was administered Lexiscan per protocol. He was monitored and sequential vital signs were performed. The patient remained in sinus rhythm throughout the study with stable vital signs and saturations. He did experience very mi ld chest pressure and mild nausea. His starting blood pressure was 142/72, and at the time of comple tion of the study, his blood pressure was 126/70. Sats remained in the mid 90s. IMPRESSION: Uneventful Lexiscan infusion. Myocardial perfusion imaging will be dictated separately and by Radiology. /[id number]/MODL
--- NOTE | 2017-07-13 15:17 | HOSPPROG ---
Hospitalist Progress Note Assessment/Plan: 71 yo male who had abrupt bilateral vision loss, word finding difficulty, right leg weakness and chest pain and presented to the ED and the had acute encephalopathy CT brain was negative cont to have CP. Trops negative Assessment and plan-pleasant 71-year-old gentleman who presents with lower sternal epigastric chest pain. #?TIA/CVA. no residual deficits at this time #Chest pain -will have Monica Scan today -Trops negative thus far -check for risk factors #HTN #Hyperglycemia, A1C is pending #chronic right knee pain 2/2 meniscal tear #Encephalopathy resolved #GERD, PPI #Generalized weakness: Pt/OT to eval #Leukocytosis, resolved Plan: change to inpatient Await Monica sca obtain MRI Brain Increase Aspirin to full dose PT/OT Med rec once med list is available Subjective: still with chest pain. no neuro deficits. Encephapathy resolved. Objective: Vital Signs Temp Pulse Resp BP Pulse Ox 36.6 C 77 12 156/83 H 91 L 07/13/17 06:58 07/13/17 06:58 07/13/17 06:58 07/13/17 06:58 07/13/17 06:58 Laboratory Results 07/13/17 09:56 PT 13.3 SEC (12.0-15.0) 07/12/17 21:35 INR 0.99 (0.83-1.16) 07/12/17 21:35 - Physical Exam Constitutional: no apparent distress Eyes: PERRL, EOMI Ears, Nose, Mouth, Throat: moist mucous membranes, hearing normal Cardiovascular: regular rate and rhythym, no murmur, rub, or gallop Respiratory: no respiratory distress, no rales or rhonchi Gastrointestinal: normoactive bowel sounds, soft, non-tender abdomen Genitourinary: no bladder fullness Skin: warm Musculoskeletal: generalized weakness Neurologic: AAOx3 Psychiatric: interacting appropriately, not anxious, not encephalopathic ICD10 Worksheet Patient Problems: Problems Problem Status Onset Chest pain Acute Abdominal pain Acute Acute diarrhea Acute Colitis Acute Dyspnea Acute Epigastric pain Acute Pedal edema Acute
[2017-07-13] MEDS ORDERED: ASPIRIN 81 MG CHEWABLE TAB PO SCH (15:19)
--- NOTE | 2017-07-13 15:40 | PDMN ---
Medical Necessity Medical necessity: C/M review: est. > 2 MN LOS for eval and TX of acute and persistent chest pain, questionable TIA / CVA (patient had abrupt vision loss, word finding difficulty, right leg weakness, prior to Ed presentation 07/12/2017 then had acute encephalopathy), questionable TIA / CVA, no residual deficits at this time, encephalopathy resolved, generalized weakness, hyperglycemia, leukocytosis (resolved), requiring 07/13/2017 myocardial perfusion scan- results pending, brain MRI, A 1C result pending, ongoing cardiac monitoring, increase aspirin to full dose, PPI, acute inpt PT/OT, comorbid hypertension, chronic right knee pain secondary to meniscal tear, GERD. per 07/13/2017 Hospitalist progress note.
--- NOTE | 2017-07-13 17:35 | ASMTCMCOM ---
CM Note CM Note Notes: Pt admitted with chest pain; questionable TIA/CVA. Spoke with MD & RN; pt normally lives independently w/roommates. Current pt at [facility]. Pt recommending home no needs. OT ordered; awaiting eval. CM will follow. Date Signed: 07/13/2017 05:34 PM Electronically Signed By:Isatu Zhu RN
[2017-07-13] MEDS: DILTIAZEM CD 180 MG CAP PO SCH (17:59)
[2017-07-13] MEDS ORDERED: DILTIAZEM 180 MG PO SCH (18:00)
[2017-07-14] MEDS: HYDROCODONE/APAP 5/325 TAB PO PRN ×4 (03:57→19:55)
[2017-07-14 04:22] LABS: PLATELET COUNT 270 10^3/uL (150-400)
[2017-07-14] MEDS ORDERED: ASPIRIN 81 MG CHEWABLE TAB PO SCH (09:00)
[2017-07-14] MEDS ORDERED: NON-FORMULARY NEW DRUG (Omeprazole Magnesium [Prilosec Otc] 20 MG) PO SCH (09:00)
[2017-07-14] MEDS ORDERED: ACETAMINOPHEN 500 MG TAB PO SCH (09:00)
[2017-07-14] MEDS: TERAZOSIN HCL 2 MG CAP PO SCH (09:35)
[2017-07-14] MEDS: DILTIAZEM CD 180 MG CAP PO SCH ×2 (09:35→18:41)
[2017-07-14] MEDS: MULTIVITAMINS 1 EACH TAB PO SCH (09:36)
[2017-07-14] MEDS: ATORVASTATIN CALCIUM 40 MG TAB PO SCH (09:36)
[2017-07-14] MEDS: ASPIRIN 325 MG TAB PO SCH (09:36)
[2017-07-14] MEDS: ENOXAPARIN 40 MG/0.4 ML SYR SC SCH (09:36)
[2017-07-14] MEDS: PANTOPRAZOLE SODIUM 40 MG TAB PO SCH (09:36)
[2017-07-14] MEDS: LOSARTAN POTASSIUM 50 MG TAB PO SCH (09:36)
--- NOTE | 2017-07-14 11:58 | ASMTCMCOM ---
CM Note CM Note Notes: 07/14/2017 Case Management Note Reviewed pt in rounds. PT is recommending home. Case Management d/c poc: independent with follow up as directed. Case Management available if needs change. Date Signed: 07/14/2017 11:57 AM Electronically Signed By:Abi Edgar RN
[2017-07-14] MEDS: FLUTICASONE NASAL 120 SPRAYS/16 GM MDI EACHNARE SCH (12:37)
[2017-07-14] MEDS ORDERED: IOPAMIDOL (ISOVUE 370) 100 ML BTL IV ONE (15:05)
--- NOTE | 2017-07-14 17:20 | ECHO ---
[email or web address] [address] [address] Main: [phone] Fax: Transthoracic Echocardiogram Name: NASIR TILLMAN MR#: [id number] Study Date: 07/14/2017 Study Time: 03:18 PM Date of : 1945 Age: 71 year(s) Height: 172.7 cm (68 in.) Weight: 88 kg (194 lb.) BSA: 2.02 m2 Gender: Male Examination: Echo with Agitated Saline Indication: Transient ischemic attack, bubble study Image Quality: Adequate Contrast: I.V. dose of agitated saline Requested by: Kirstie Saunders BP: 160 mmHg/94 mmHg Heart Rate: Rhythm: Normal sinus rhythm Indication: Transient ischemic attack, bubble study Procedure Staff Exhibit Display Representative: Gertrude Borjas [facility] Reading Physician: Lino Gregory Requesting Provider: Conclusions: Normal size left ventricle. EF is 66 %. No regional wall motion abnormality. Normal diastolic LV function. An agitated saline study was performed and was negative for intracardiac shunting. There is mild thickening of the mitral valve leaflets. Trivial mitral valve regurgitation. Aortic valve is not well visualized. Most likely tri-leaflet. Aortic sclerosis is present. Mild aortic valve regurgitation is present. No aortic valve stenosis is present. Trivial tricuspid valve regurgitation. No pericardial effusion. Measurements: Chambers Valvular Assessment AV/MV Valvular Assessment TV/PV Normal Normal Normal Name Value Range Name Value Range Name Value Range Ao Bambi (MM): 2.4 cm (2.2 cm-3.7 AV Vmax: 1.79 m/s (1 m/s-1.7 PV Vmax: 0.76 m/s (0.6 m/s-0.9 cm) m/s) m/s) IVSd (2D): 0.8 cm (0.6 cm-1.1 AV maxP mmHg ( - ) PV PGmax: 2 mmHg ( - ) cm) AV meanP mmHg ( - ) LVDd (2D): 4.6 cm (4.2 cm-5.9 LVOT Vmax: 1.07 m/s (0.7 m/s-1.1 cm) m/s) LVDs (2D): 2.7 cm (2.1 cm-4 AR (PHT): 575 ms ( - ) cm) MV E Vmax: 0.72 m/s ( - ) LVPWd (2D): 1.1 cm (0.6 cm-1 MV A Vmax: 0.95 m/s ( - ) cm) MV E/A: 0.76 ( - ) LVEF (BP): 66 % (>=55 %) Patient: NASIR TILLMAN Study Date: 07/14/2017 Page 1 of 2 03:18 PM RVDd(2D): 2.5 cm (1.9 cm-3.8 cmmm) Continued Measurements: Chambers Valvular Assessment AV/MV Name Value Name Value LADs: 2.9 cm MV DecTime: 250 m/s LADs Lon.4 cm MV E/E' Septal: 9.70 LA Area: 17.3 cm2 MV E/E' Lateral: 11.10 LA Volume: 48 ml AR Vmax: 4.51 cm/s LA Volume Index: 23.8 ml/m2 TAPSE: 2.3 cm RA Area: 12.5 cm2 Additional Vessels Name Value Ao Ascendin.4 cm Findings: Left Ventricle: Normal size left ventricle. No LV hypertrophy. Normal global systolic LV function. EF is 66 %. No regional wall motion abnormality. Normal diastolic LV function. Right Ventricle: Normal size right ventricle. Normal RV function. Left Atrium: The left atrium is normal in size. An agitated saline study was performed and was negative for intracardiac shunting. Right Atrium: The right atrium is normal in size. Mitral Valve: There is mild thickening of the mitral valve leaflets. Trivial mitral valve regurgitation. Aortic Valve: Aortic valve is not well visualized. Most likely tri-leaflet. Aortic sclerosis is present. Mild aortic valve regurgitation is present. No aortic valve stenosis is present. Tricuspid Valve: The tricuspid valve is normal in appearance and function. Trivial tricuspid valve regurgitation. Pulmonic Valve: The pulmonic valve is normal in appearance and function. Trivial pulmonic valve regurgitation. Aorta: The aorta is normal. Normal size aortic root measuring 2.4 cm. Normal size ascending aorta measuring 3.4 cm. IVC: The IVC is normal sized. Pericardium: No pericardial effusion. (No Signature Object) Patient: NASIR TILLMAN Study Date: 07/14/2017 Page 2 of 2 03:18 PM [id number]
--- NOTE | 2017-07-14 18:29 | HOSPPROG ---
Hospitalist Progress Note Assessment/Plan: * Possible TIA - possible amaurosis fugax -MRI brain, CTA head/neck, ECHO unremarkable -continue ASA -neurology consult in am * Chest pain/epigastric pain -stress test negative -GB US relatively unremarkable * HTN -diltiazem, losartan * TBI * Hyperlipidemia -well controlled on statin Subjective: Still with RUQ pain Objective: Vital Signs Temp Pulse Resp BP Pulse Ox 36.7 C 70 18 133/67 H 91 L 07/14/17 16:00 07/14/17 16:00 07/14/17 16:00 07/14/17 16:00 07/14/17 16:00 Laboratory Results 07/14/17 03:58 07/14/17 03:58 07/13/17 07/14/17 07/15/17 05:59 05:59 05:59 Intake Total 900 Balance 900 PT 13.3 SEC (12.0-15.0) 07/12/17 21:35 INR 0.99 (0.83-1.16) 07/12/17 21:35 CXR viewed, my personal interpretation is - negative CTA head/neck - negative ECHO - normal - Physical Exam Constitutional: no apparent distress, appears nourished, not in pain Cardiovascular: regular rate and rhythym, no murmur, rub, or gallop Respiratory: no respiratory distress, no rales or rhonchi, clear to auscultation Gastrointestinal: normoactive bowel sounds, soft, non-tender abdomen, no palpable masses Skin: no rashes or abrasions, no fluctuance, no induration Neurologic: AAOx3, sensation intact bilaterally Psychiatric: interacting appropriately, not anxious, not encephalopathic, thought process linear ICD10 Worksheet Patient Problems: Problems Problem Status Onset Chest pain Acute Abdominal pain Acute Acute diarrhea Acute Colitis Acute Dyspnea Acute Epigastric pain Acute Pedal edema Acute
[2017-07-15] MEDS: HYDROCODONE/APAP 5/325 TAB PO PRN ×3 (00:32→08:02)
[2017-07-15 07:26] VITALS: BP 167/75; PULSE 74; RESP 13; TEMP 98.4; O2SAT 90
--- NOTE | 2017-07-15 08:57 | GCON ---
[f rep st] CONSULTATION NEUROLOGIC CONSULTATION REFERRING PHYSICIAN: Dr. Saunders. HISTORY: The patient is a 71-year-old gentleman who I am asked to see in neurologic consultation for an episode of decreased vision as well as some mild confusion. The history is obtained from review of the medical records as well as direct discussion with the patient who is a good historian. He pre sented to the emergency department on July 12, 3 days ago. He said he was watching television and started to notice that the intensity of brightness was diminishing and over the next several seco nds, it started to diminish more fully throughout all of his vision and there was a perception of a b lack and white visual snow type phenomena followed by several seconds of complete loss of vision befo re that improved. During that timeframe, he was feeling some discomfort in his abdomen and chest and was a little bit concerned that he might be having a heart attack. He contacted a friend and that tamar norris came to assist him. He did not realize it, but his friend told him that he was a little bit co nfused. He had been noticing no acute confusion or inability to function, but apparently his friend needed to guide him a little bit on where he was going in the house and the plan. Perhaps his speech might have been slightly slurred. He remembers coming to the emergency room and he was asked his na me and he literally could not think of his name for several seconds. He also could not think of his date, but that returned within about 30 seconds. He has never had this type of phenomenon befo re in terms of the neurologic complaints, but it is not unusual for him to experience this epigastric discomfort or pain. There are no obvious precipitating or alleviating factors for the symptoms. Th e overall duration was only a few minutes really. He did not have focal numbness or weakness. No ot her areas of his body seemed to be affected. He did not have severe headache, but he had some mild h eadache. He is not someone who typically struggles with headaches. REVIEW OF SYSTEMS: A 10-point review of systems is completed and unremarkable except for that noted above, and he additionally says he had some right knee pain with a known meniscal problem. He has so me history of lifelong right and left confusion and what he describes as some mild dyslexia. I will elaborate on that more below. PAST MEDICAL HISTORY: Notable for some sciatica as well as the right meniscal problems. He has neve r had a stroke or TIA. He has some hypertension, hyperlipidemia, old head trauma. He has been a lit tle bit concerned about his memory over time. He says he has trouble coming up with words intermitte ntly. He might need to describe the object for several seconds before coming up with the word. He a lso tells me that throughout his life he struggled with learning mathematics and language skills. As a young person, he felt "tortured" by teachers who just thought he was lazy. He feels he has dyslex ia. This even now continues to give him some distress and challenges. SOCIAL HISTORY: He did graduate high school and graduated college with a degree in sociology. 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 He smoked for 35 years, but quit many years ago. He does no t drink alcohol. No drug use. FAMILY HISTORY: Hypertension and alcoholism in his father. No specific family history of Alzheimer disease. MEDICATIONS: Coming into the hospital were diltiazem, terazosin, aspirin, fluticasone, atorvastatin, diltiazem, and losartan. ALLERGIES: None. PHYSICAL EXAMINATION: VITAL SIGNS: Blood pressure 167/75, pulse of 74, respirations 13, temperature 36.9. GENERAL: He is well developed, in no acute distress. EYES: Clear. NECK: Supple with no b ruits or masses. CARDIAC: Regular rate and rhythm. No murmur. EXTREMITIES: No cyanosis or edema. NEUROLOGIC: He is alert and oriented to person, place, time and general situation. He has good re cent and remote memory. Attention span and concentration are preserved. Language skills are normal with no aphasia. General fund of knowledge is good. He is friendly and has an euthymic affect. He has a logical concern about memory and is able to elaborate on his concerns as well as the psychologi skylar impact of being criticized for his failure to be a good student when he was younger with his read ing and mathematics. Pupils are 2 mm and reactive. I cannot view the fundi for any commentary. No visual field loss. Extraocular movements are intact. Normal facial sensation and strength. Palate elevates symmetrically and tongue protrudes midline. Hearing is preserved. No weakness of head turn ing or shoulder shrug. Motor exam: Normal muscle bulk and tone with 5/5 strength and no abnormal mo vements. Sensation is preserved for temperature and light touch. No ataxia in the upper extremities . Reflexes are 2+ in the upper extremities and 3+ in the lower extremities with brief clonus at the right ankle and upgoing toe on the right and equivocal on the left. LABORATORY STUDIES: Normal white blood cell count of 9000. Electrolytes are normal. LDL cholestero l of 69. Normal INR. His head CT showed some nonspecific vascular change. MRI showed nonspecific white matter disease consistent with small vessel change, but no severe atroph y or acute strokes. CT angiogram of the head and neck showed widely patent vasculature. There was evidence of significan t cervical spinal stenosis, but this was not a study devoted to that. Echocardiogram showed good ejection fraction and no embolic source identified. Bubble study was negative. IMPRESSION: 1. With regard to the patient's visual complaint and acute neurologic symptoms, this sounds like an episode of global hypoperfusion, probably a vasovagal phenomenon the way he began the story with feel ing abdominal pain or some chest pain and then started to have the symptoms of bilateral visual dimmi ng followed by scotomas of a snow-like pattern and then transient loss of vision for just a few secon ds. It would not be surprising during that timeframe that he would have a little bit of mild confusi on. A basilar artery stenosis could precipitate this phenomenon, but the CTA looks fine and I do not believe he had an embolism nor a local thrombosis. He fairly rapidly returned back to his baseline. Therefore, I do not think he technically had a true transient ischemic attack and he does not have evidence of a stroke on MRI. He does have vascular risk factors and evidence of chronic vascular dis ease on MRI. Therefore, continued risk factor management is appropriate and this is already being wo rked on. 2. History of some cognitive problems with lifelong challenges of learning impairment through dyslex ia most likely and adapting to his world but still having impacts from that throughout his life. I t old him that he has normal aging when he has trouble coming up with words, but this is something we c an monitor as an outpatient if it tends to progress. Most of the time these phenomena are not associ ated with Alzheimer disease but can be an early sign of cognitive impairment that should be tracked, but no specific intervention or further diagnostic studies are needed at this time. I talked about t he importance of maintaining a healthy diet, social, physical, and intellectual engagement. 3. Sciatica intermittently for which no acute intervention is needed. 4. He also had mentioned occasionally having paresthesias in his ring finger and little finger, part icularly with sleep, which would likely represent intermittent ulnar nerve irritation, but also no ac sioux interventions needed. 5. CT angiogram did capture some evidence of cervical spinal stenosis and he has hyperreflexia in th e lower extremities with a right Babinski sign suggesting there might be some kind of spinal cord pre ssure. However, this will be followed as an outpatient based on his clinical story and I would not r ecommend acute interventions at this point. I talked to him about the symptoms to watch for in the s etting of any spinal cord compression. I would recommend continuing aspirin and statin therapy. His primary care is through the clinic. I gave him my card and had recommendation for him to follow up with me depending on his clinical course and we can have further discussions about cognitive issues as they arise or any other neurologic com plaints. /[id number]/MODL
[2017-07-15] MEDS: PANTOPRAZOLE SODIUM 40 MG TAB PO SCH (09:25)
[2017-07-15] MEDS: ENOXAPARIN 40 MG/0.4 ML SYR SC SCH (09:25)
[2017-07-15] MEDS: LOSARTAN POTASSIUM 50 MG TAB PO SCH (09:25)
[2017-07-15] MEDS: DILTIAZEM CD 180 MG CAP PO SCH (09:25)
[2017-07-15] MEDS: ATORVASTATIN CALCIUM 40 MG TAB PO SCH (09:25)
[2017-07-15] MEDS: MULTIVITAMINS 1 EACH TAB PO SCH (09:25)
[2017-07-15] MEDS: ASPIRIN 325 MG TAB PO SCH (09:25)
[2017-07-15] MEDS: TERAZOSIN HCL 2 MG CAP PO SCH (09:25)
[2017-07-15] MEDS: FLUTICASONE NASAL 120 SPRAYS/16 GM MDI EACHNARE SCH (09:26)
[2017-07-15] MEDS ORDERED: LOSARTAN POTASSIUM 50 MG TAB PO SCH (09:30)
--- NOTE | 2017-07-15 15:53 | ASDISCHSUM ---
Discharge Information Plan Status:Home with No Needs Medically Cleared to Leave:07/14/2017 Discharge Date:07/15/2017 01:04 PM CM D/C Disposition:Home, Routine, Self-Care ADT D/C Disposition:Home, Routine, Self-Care Projected Discharge Date:07/15/2017 01:04 PM Transportation at D/C: Discharge Delay Reason: Follow-Up Date:07/15/2017 01:04 PM Discharge Slot: Final Diagnosis: Placement Information Patient Contact Information Contact Name:MARIA LUZ Relationship:Sister Address: Work Phone: City: [facility] Phone: State/[employer] Tele[employer] Code: Email: Financial Information Financial Class:Medicaid Primary Plan Desc:[employer] [place] Primary Plan Number:[id number] Secondary Plan Desc: Secondary Plan Number: Assessment Information [facility] CM Progress Note CM Note CM Note Notes: Pt admitted with chest pain; questionable TIA/CVA. Spoke with MD & RN; pt normally lives independently w/roommates. Current pt at [facility]. Pt recommending home no needs. OT ordered; awaiting eval. CM will follow. Date Signed: 07/13/2017 05:34 PM Electronically Signed By:Isatu Zhu RN [facility] CM Progress Note CM Note CM Note Notes: 07/14/2017 Case Management Note Reviewed pt in rounds. PT is recommending home. Case Management d/c poc: independent with follow up as directed. Case Management available if needs change. Date Signed: 07/14/2017 11:57 AM Electronically Signed By:Abi Edgar RN LACE LACE Length of stay for Answers: 2 days current admission Acuity / Level of Answers: Yes Care: Did the patient have an inpatient admission? Comorbidities - select Answers: Cerebrovascular disease all that apply (CVA, TIA, aneurysms, vasc ular dementia) Other Notes: HTN, HLD, ashtma, short term memory deficits, TBI, osteoart hri tis # of Emergency department Answers: 0 visits in the last 6 months Score: 7 Date Signed: 07/15/2017 03:52 PM Electronically Signed By:Abi Edgar RN Intervention Information
--- NOTE | 2017-07-16 01:26 | GDS ---
[f rep st] DISCHARGE SUMMARY DISCHARGE DIAGNOSES: 1. Epigastric pain. Needs further evaluation. 2. Chest pain with negative stress testing. 3. Vasovagal event with hypoperfusion. 4. Severe cervical spinal stenosis. 5. Traumatic brain injury. 6. Hyperlipidemia. HISTORY: The patient is a 71-year-old male, who presented to the hospital with an episode of epigast tia and chest pain, as well as transient vision loss and transient confusion. He was admitted to the hospital and underwent cardiac evaluation, including stress testing that was negative for reversible ischemia. Further discussion regarding his epigastric and chest pain revealed that this is probably gastrointestinal in origin. He has had epigastric pain for the last 6 months. Gallbladder ultrasou nd was unremarkable. He has been on proton pump inhibitor therapy without relief. He needs further GI evaluation, which I offered as an inpatient; however, he feels strongly that he needed to get home today and will pursue this further as an outpatient. He may need EGD and/or HIDA scan and/or abdomi nal CT scan. These symptoms have been persistent for the last 6 months, and he has really had to alt er his diet to compensate. He was referred to Gastroenterology. Regarding his transient vision loss, he received a TIA workup, including MRI of the brain, head and n tika CT angiogram, and an echocardiogram. Neurology saw him in consultation, and they felt his sympto ms were more consistent with a diffuse hypoperfusion rather than a TIA. It is suspected he had a vas ovagal event related to these chest and abdominal pains, and the hypoperfusion was shortly after the onset of this pain. He rapidly returned back to baseline. He should continue on aspirin and statin therapy for prevention, but this was likely not an acute cerebral ischemic event. Incidentally noted on his imaging is severe cervical spinal stenosis, and he was found to have some n eurologic changes to his lower extremities, including a positive Babinski and hyperreflexia. 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 It is recommended he follow up with Neurosurgery as an outpatient for fur ther management. DISCHARGE MEDICATIONS: Please see computerized record for full detailed list. New medications: 1. Losartan increased to 100 mg p.o. daily due to suboptimal blood pressure control noted during thi s hospitalization. 2. Zofran 4 mg p.o. q.4 hours as needed, per patient request, for nausea control related to his epig astric pain. ADDITIONAL DISCHARGE INSTRUCTIONS: 1. Follow up with Gastroenterology for further workup of his abdominal pain. Consider HIDA scan and /or EGD. He was referred to G[facility]ology of the [facility]. 2. Follow up with Neurosurgery regarding severe cervical spinal stenosis. 3. Follow up with Dr. Sandoval of Neurology regarding concerns of ongoing cognitive issues. Greater than 30 minutes' time was spent arranging this discharge. Patient was seen and examined by vanesa tee on the day of discharge. /[id number]/MODL
== END 2017-07-15 13:04 | disposition home or self-care (01) | DRG 313 ==
LOC: F2W 07-13 00:10 → OBSVTOIN 07-13 10:51
PROVIDERS: ADMIT Family Medicine; ATTEND Family Medicine
DX: R07.9 Chest pain, unspecified (principal); R10.13 Epigastric pain; R55 Syncope and collapse; M48.02 Spinal stenosis, cervical region; E78.5 Hyperlipidemia, unspecified; I10 Essential (primary) hypertension; J45.909 Unspecified asthma, uncomplicated; I70.0 Atherosclerosis of aorta; M23.200 Derangement of unspecified lateral meniscus due to old tear or injury, right knee; K21.9 Gastro-esophageal reflux disease without esophagitis; Z87.820 Personal history of traumatic brain injury; Z87.891 Personal history of nicotine dependence
CPT/HCPCS: 97161-GP; 97166-GO; A9500; J1650; J2405; J2785; Q9967

== ENCOUNTER 2017-08-18 12:44 | Day surgery (SDC) | payer MEDICAID ==
[2017-08-18] MEDS ORDERED: LR 1,000 ML IV ONE (13:13)
[2017-08-18] MEDS ORDERED: LIDOCAINE 1% 2 ML INJ ID PRN (13:13)
--- NOTE | 2017-08-18 14:05 | PDANEPAE ---
ANE History of Present Illness EGD, Colonoscopy ANE Past Medical History - Cardiovascular History Hx Hypertension: Yes Hx Arrhythmias: No Hx Chest Pain: No Hx Coronary Artery / Peripheral Vascular Disease: No Hx CHF / Valvular Disease: No Hx Palpitations: No Cardiovascular History Comment: HYPERLIPIDEMIA. RECENT ER/HOSP VISIT AND WORK UP W/SXS CHEST PAIN, LOSS OF VISION, MEMORY LAPSE - Pulmonary History Hx COPD: No Hx Asthma/Reactive Airway Disease: No Hx Recent Upper Respiratory Infection: No Hx Oxygen in Use at Home: No Hx Sleep Apnea: No Sleep Apnea Screening Result - Last Documented: Positive Pulmonary History Comment: OCCAS ASTHMA W/URIs - Neurologic History Hx Cerebrovascular Accident: No Hx Seizures: No Hx Dementia: No Neurologic History Comment: MIGRAINES WHEN YOUNGER - Endocrine History Hx Diabetes: No - Renal History Hx Renal Disorders: No Renal History Comment: BPH - Liver History Hx Hepatic Disorders: No - Neurological & Psychiatric Hx Hx Neurological and Psychiatric Disorders: No - Cancer History Hx Cancer: No - Congenital Disorder History Hx Congenital Disorders: No - GI History Hx Gastrointestinal Disorders: Yes Gastrointestinal History Comment: NAUSEA. ACID REFLUX - Other Health History Other Health History: NEG - Chronic Pain History Chronic Pain: Yes (knees & BACK) - Surgical History Prior Surgeries: HERNIA R ING 1968. TONSILLECTOMY. FX JAW REPAIRED ANE Review of Systems Review of Systems: - Exercise capacity METS (RN): 4 METS ANE Patient History - Allergies Allergies/Adverse Reactions: No Known Allergies Allergy (Verified 08/14/17 11:37) - Home Medications Home medications: home medication list seen and reviewed Home Medications: Terazosin HCl [Hytrin 2 MG (*)] 4 mg PO DAILY 05/26/16 [Last Taken 08/17/17] Aspirin [Aspirin 81mg (*)] 81 mg PO DAILY 10/28/16 [Last Taken 08/11/17] Fluticasone Nasal [Flonase Nasal Firth] 2 sprays EACHNARE DAILY 10/29/16 [Last Taken 08/17/17] Atorvastatin Calcium [Lipitor 40 mg (*)] 40 mg PO DAILY 07/12/17 [Last Taken ] Diltiazem Xr [Dilacor Xr 180 MG (RX)] 180 mg PO BID@,18 07/12/17 [Last Taken 08/17/17] Acetaminophen [Tylenol ES 500 mg (*)] 1,000 mg PO DAILY 07/13/17 [Last Taken ] Multivitamins [Multivitamin (*)] 1 each PO DAILY 07/13/17 [Last Taken 08/17/17] Omeprazole Magnesium [Prilosec Otc] 20 mg PO DAILY 07/13/17 [Last Taken 08/17/17 ] Herbals/Supplements -Info Only 08/14/17 [Last Taken 08/17/17] - NPO status NPO Status: no food or drink >8 hours NPO Since - Liquids (Date): 08/18/17 NPO Since - Liquids (Time): 10:30 NPO Since - Solids (Date): 08/17/17 NPO Since - Solids (Time): 09:00 - Anes Hx Anes Hx: post operative nausea and vomiting (with ether) - Smoking Hx Smoking Status: Former smoker - Alcohol Use Alcohol Use: Rarely - Family Anes Hx Family Anes Hx: none Family Hx Anesthesia Complications: NEG ANE Labs/Vital Signs - Vital Signs Height: 173.99 cm Weight: 85.275 kg ANE Physical Exam - Airway Mallampati Score: Class 2 Mouth exam: normal dental/mouth exam - Pulmonary Pulmonary: no respiratory distress - Cardiovascular Cardiovascular: regular rate and rhythym - ASA Status ASA Status: II ANE Anesthesia Plan Anesthesia Plan: GA with mask Total IV Anesthesia: Yes
[2017-08-18] MEDS ORDERED: INDOMETHACIN 50 MG SUPP PR PRN (14:09)
--- NOTE | 2017-08-18 14:09 | PDGENHP ---
History & Physical Chief Complaint: nausea/colitis History of Present Illness: 71 year old male presents for evaluation of nausea as well as episode of colitis Pertinent Past, Social, Family History: PMHx: htn. PSugHx: meniscus tear. FaMHx: HTN Relevant Physical Exam: HEENT: anicteric. CV: RRR +s1s2. Lungs: CTAB. Abd: soft, nt, + bs Cardiorespiratory Assessment: ASA 2
[2017-08-18] MEDS ORDERED: NS 500 ML IV SCH (14:15)
[2017-08-18] MEDS ORDERED: fentaNYL 100 MCG/2 ML INJ ONE (14:16)
[2017-08-18] MEDS ORDERED: PROPOFOL/EMULSION 500 MG/50 ML BOTTLE IV ONE (14:16)
[2017-08-18] MEDS ORDERED: LIDOCAINE 2% 100 MG/5 ML SYR ONE (14:18)
[2017-08-18] MEDS ORDERED: LR 500 ML IV PRN (14:34)
[2017-08-18] MEDS ORDERED: ALBUTEROL 3 ML DEYVIAL IH PRN (14:34)
[2017-08-18] MEDS ORDERED: ACETAMINOPHEN 500 MG TAB PO PRN (14:34)
[2017-08-18] MEDS ORDERED: ONDANSETRON 4 MG/2 ML VIAL IVP PRN (14:34)
[2017-08-18] MEDS ORDERED: HYDROCODONE/APAP 5/325 TAB PO PRN (14:34)
[2017-08-18] MEDS ORDERED: fentaNYL 100 MCG/2 ML INJ IVP PRN (14:34)
[2017-08-18] MEDS ORDERED: DEXAMETHASONE 4 MG/ML VIAL IVP PRN (14:34)
[2017-08-18] MEDS ORDERED: NALOXONE HCL 0.4 MG/ML INJ IVP PRN (14:34)
[2017-08-18] MEDS ORDERED: PHENYLEPHRINE HCL 100 MCG/ML SYR IVP PRN (14:34)
[2017-08-18] MEDS ORDERED: PROPOFOL 200 MG/20 ML VIAL ONE (14:52)
--- NOTE | 2017-08-18 15:24 | GIREPORT ---
[facility] Surgical Services - Endoscopy Department Patient Name: Mk Drew Procedure Date: 08/18/2017 2:05 PM Patient Type: Outpatient Attending MD/ ER Physician: Donovan Norton MD Procedure: Upper GI endoscopy Indications: Epigastric abdominal pain, Nausea Patient Profile: 71 year old male presents for evaluation of abdominal pain and nausea. Providers: Donovan Norton MD Medicines: Monitored Anesthesia Care Complications: No immediate complications. Estimated blood loss: Minimal. Description of Procedure: After obtaining informed consent, the endoscope was passed under direct vision. Throughout the procedure, the patient's blood pressure, pulse, and oxygen saturations were monitored continuously. The Endoscope was intro duced through the mouth, and advanced to the second part of duodenum. The [facility] er GI endoscopy was accomplished without difficulty. The patient tolerated th e procedure well. Findings: The examined esophagus was normal. A medium-sized hiatal hernia was present. Patchy mildly erythematous mucosa was found in the gastric body and in the gastric antrum. Biopsies were taken with a cold forceps for histology. A few diminutive sessile polyps were found in the gastric fundus. Biops ies were taken with a cold forceps for histology. The examined duodenum was normal. Biopsies for histology were taken wit h a cold forceps for evaluation of celiac disease. Estimated Blood Loss: Estimated blood loss was minimal. Post Op Diagnosis: - Normal esophagus. - Medium-sized hiatal hernia. - Erythematous mucosa in the gastric body and antrum. Biopsied. - A few gastric polyps. Biopsied. - Normal examined duodenum. Biopsied. - Etiology? No obvious cause of symptoms. Await biopsy results. Conisde r trial of Carafate? Recommendation: - Await pathology results. - Use a proton pump inhibitor PO daily. - Follow an antireflux regimen. - Consider trial of Carafate. - Perform a colonoscopy today. - Thank you for allowing me to participate in the care of your patient. Attending Participation: I personally performed the entire procedure. Donovan Norton MD Donovan Norton MD 08/18/2017 3:23:37 PM This report has been signed electronicallyDonovan Norton MD Number of Addenda: 0 Note Initiated On: 08/18/2017 2:05 PM [email or web address]
[2017-08-18 15:27] VITALS: PULSE 81
--- NOTE | 2017-08-18 15:30 | GIREPORT ---
[facility] Surgical Services - Endoscopy Department Patient Name: Mk Drew Procedure Date: 08/18/2017 2:04 PM Patient Type: Outpatient Attending MD/ ER Physician: Donovan Norton MD Procedure: Colonoscopy Indications: Abnormal CT of the GI tract Patient Profile: 71 year old male presents for evaluation of abnormal imaging with thick ening seen in his left colon. Providers: Donovan Norton MD Medicines: Monitored Anesthesia Care Complications: No immediate complications. Estimated blood loss: Minimal. Description of Procedure: After obtaining informed consent, the scope was passed under direct vis ion. Throughout the procedure, the patient's blood pressure, pulse, and oxyg en saturations were monitored continuously. The Colonoscope with irrigatio n channel was introduced through the anus and advanced to the cecum, identified by appendiceal orifice and ileocecal valve. The colonoscopy was performed without difficulty. The patient tolerated the procedure well. The quality of the bowel preparation was adequate to identify polyps. The ileocecal valve, appendiceal orifice, and rectum were photographed. Findings: The perianal and digital rectal examinations were normal. Pertinent negatives include no palpable rectal lesions. Many diverticula were found in the sigmoid colon. Four sessile polyps were found in the cecum. The polyps were 4 to 6 mm in size. These polyps were removed with a cold snare. Resection and retrie joaquin were complete. A 2 mm polyp was found in the cecum. The polyp was sessile. The polyp w as removed with a cold biopsy forceps. Resection and retrieval were comple te. A 15 mm polyp was found in the ascending colon. The polyp was sessile. The polyp was removed with a piecemeal technique using a hot snare. Resecti on and retrieval were complete. Two sessile polyps were found in the ascending colon. The polyps were 3 to 5 mm in size. These polyps were removed with a cold snare. Resection and retrieval were complete. Two sessile polyps were found in the ascending colon. The polyps were 2 to 3 mm in size. These polyps were removed with a cold biopsy forceps. Resec tion and retrieval were complete. Three sessile polyps were found in the transverse colon. The polyps wer e 4 to 5 mm in size. These polyps were removed with a cold snare. Resection and retrieval were complete. A 4 mm polyp was found in the descending colon. The polyp was sessile. The polyp was removed with a cold snare. Resection and retrieval were compl ete. Biopsies for histology were taken with a cold forceps for evaluation of microscopic colitis. Estimated Blood Loss: Estimated blood loss was minimal. Post Op Diagnosis: - Diverticulosis in the sigmoid colon. - Four 4 to 6 mm polyps in the cecum, removed with a cold snare. Resect ed and retrieved. - One 2 mm polyp in the cecum, removed with a cold biopsy forceps. Rese cted and retrieved. - One 15 mm polyp in the ascending colon, removed piecemeal using a hot snare. Resected and retrieved. - Two 3 to 5 mm polyps in the ascending colon, removed with a cold snar e. Resected and retrieved. - Two 2 to 3 mm polyps in the ascending colon, removed with a cold biop sy forceps. Resected and retrieved. - Three 4 to 5 mm polyps in the transverse colon, removed with a cold s nare. Resected and retrieved. - One 4 mm polyp in the descending colon, removed with a cold snare. Resected and retrieved. - Biopsies were taken with a cold forceps for evaluation of microscopic colitis. Recommendation: - Discharge patient to home (with escort). - Resume previous diet. - Continue present medications. - Repeat colonoscopy in 1 year for surveillance after piecemeal polypec petey. - Await pathology results. - Use fiber, for example Citrucel, Fibercon, Konsyl or Metamucil. - Thank you for allowing me to participate in the care of your patient. Attending Participation: I personally performed the entire procedure. Donovan Norton MD Donovan Norton MD 08/18/2017 3:30:23 PM This report has been signed electronicallyDonovan Norton MD Number of Addenda: 0 Note Initiated On: 08/18/2017 2:04 PM Total Procedure Duration Time 0 hours 31 minutes 51 seconds [email or web address]
[2017-08-18 15:54] VITALS: RESP 14
[2017-08-18 16:12] VITALS: TEMP 97.9
[2017-08-18 16:30] VITALS: BP 145/78; O2SAT 92
== END 2017-08-18 16:30 | disposition home or self-care (01) ==
LOC: FSGY 12:44
PROVIDERS: ATTEND Internal Medicine Gastroenterology
PROC: 0DB68ZX Excision of Stomach, Via Natural or Artificial Opening Endoscopic, Diagnostic (ICD-10-PCS; principal; 2017-08-18 14:00)
PROC: 0DBM8ZX Excision of Descending Colon, Via Natural or Artificial Opening Endoscopic, Diagnostic (ICD-10-PCS; principal; 2017-08-18 14:00)
PROC: 0DBH8ZX Excision of Cecum, Via Natural or Artificial Opening Endoscopic, Diagnostic (ICD-10-PCS; principal; 2017-08-18 14:00)
PROC: 0DB98ZX Excision of Duodenum, Via Natural or Artificial Opening Endoscopic, Diagnostic (ICD-10-PCS; principal; 2017-08-18 14:00)
PROC: 0DBK8ZX Excision of Ascending Colon, Via Natural or Artificial Opening Endoscopic, Diagnostic (ICD-10-PCS; principal; 2017-08-18 14:00)
PROC: 0DBL8ZX Excision of Transverse Colon, Via Natural or Artificial Opening Endoscopic, Diagnostic (ICD-10-PCS; principal; 2017-08-18 14:00)
DX: D12.0 Benign neoplasm of cecum (principal); D12.2 Benign neoplasm of ascending colon; D12.4 Benign neoplasm of descending colon; D12.3 Benign neoplasm of transverse colon; K31.7 Polyp of stomach and duodenum; R93.3 Abnormal findings on diagnostic imaging of other parts of digestive tract; K29.70 Gastritis, unspecified, without bleeding; R11.0 Nausea; I10 Essential (primary) hypertension; R13.10 Dysphagia, unspecified; K44.9 Diaphragmatic hernia without obstruction or gangrene; E78.5 Hyperlipidemia, unspecified; N40.0 Benign prostatic hyperplasia without lower urinary tract symptoms; K21.9 Gastro-esophageal reflux disease without esophagitis
CPT/HCPCS: J2001; J2704; J3010

== ENCOUNTER 2017-08-27 14:49 | Emergency (ER) | payer MEDICAID ==
--- NOTE | 2017-08-27 15:47 | EDPHY ---
H & P Stated Complaint: reinjured right knee on friday, tore meniscus december 2016 Source: Patient, Family () Exam Limitations: No limitations - Personal History Current Tetanus/Diphtheria Vaccine: Yes Current Tetanus Diphtheria and Acellular Pertussis (TDAP): Yes Tetanus Vaccine Date: < 10 years - Medical/Surgical History Hx Asthma: Yes Hx Chronic Respiratory Disease: No Hx Diabetes: No Hx Cardiac Disease: Yes Hx Renal Disease: No Hx Cirrhosis: No Hx Alcoholism: No Hx HIV/AIDS: No Hx Splenectomy or Spleen Trauma: No Other PMH: PSHx: hernia repair, tonsillectomy/adenoidectomy. PMHx: high cholesterol, arthritis, prostate problems, memory issues, HTN - Social History Smoking Status: Former smoker Time Seen by Provider: 08/27/17 15:47 HPI/ROS: HPI: This is a 71-year-old male who presents with Chief Complaint: reinjured right knee on Friday, tore meniscus december 2016 Location: Right knee Quality: Injury Duration: 3 days ago Signs and Symptoms: No bleeding, no radiation, no numbness, no weakness, no tingling, no incontinence, + decreased range of motion, no swelling, + pain, no fever Timing: Increased with weight-bearing Severity: 12/09 Context: Patient has a history of injuring his knee in December of 2016, status post x-ray that showed degenerative changes as well as MRI outpatient and 2017 showing what appears to be in MCL tear. Patient went to physical therapy and has been using a cane to aid ambulation in times of flare. He has had trouble establishing care with an orthopedic and finally has an appointment in the next 1-2 weeks at the [facility]. On Friday patient kneeled down to fix something and the TV when he felt something tear in the medial portion with immediate, constant, nonradiating pain. Patient reports that he had difficulty standing up from a squatting position. Since that time he has had uses cane to aid ambulation. Any weight-bearing increases pain. Unable to control the pain with [id number] pain medication. Denies any paresthesias/weakness/skin color changes. Denies LOC/head injury/neck pain/dizziness/nausea/vomiting/ amnesia. Modifying Factors: Kazc-lrq-[id number] pain medications not really Comment: ROS: see HPI Constitutional: No fever, no chills, no weight loss Eyes: No blurred vision Respiratory: No shortness of breath, no cough Cardiovascular: No chest pain Gastrointestinal: No nausea, no vomiting no diarrhea Genitourinary: No dysuria Extremities: No myalgias Neurologic: No weakness, no numbness Skin: No rashes Hematologic: No bruising, no bleeding MEDICAL/SURGICAL/SOCIAL HISTORY: PSHx: hernia repair, tonsillectomy/adenoidectomy PMHx: high cholesterol, arthritis, prostate problems, memory issues, HTN Social history: . Retired. CONSTITUTIONAL: Polite and cooperative adult male, at bedside, awake and alert, no obvious distress HEENT: Atraumatic and normocephalic. NECK: supple, no midline tenderness, flexion 45 degrees, extension 45 degrees, right and left lateral flexion 45 degrees. No meningismus. Cardiovascular: Normal S1/S2, mild tachycardia, regular rhythm, without murmur rub or gallop. PULMONARY/CHEST: Symmetrical and nontender. no crepitus. Clear to auscultation bilaterally. Good air movement. No accessory muscle usage. ABDOMEN: Soft, nondistended, nontender, no ecchymosis. PELVIC: no pain with rocking; bilateral hips flexion 125 degrees, extension 30 degrees, with no pain internal rotation and no pain external rotation. BACK: No midline tenderness, no paraspinous spasm, deep tendon reflexes 2/2, no pain with straight leg raise, No foot drop. Achilles reflexes are equal bilaterally. Able to walk on heels and toes without difficulty. EXTREMITIES: 2/2 pulses, strength 5/5, right KNEE: no effusion, moderate medial joint line tenderness, no lateral joint line tenderness, extension to 120 , flexion to 90. Moderate pain valgus exam. No pain with varus exam. No pain with anterior drawer or posterior drawer test. DIP/PIP/MCP flexion/ extension intact with good light touch sensation. no deformities, no clubbing, no cyanosis or edema. NEUROLOGICAL: no focal neuro deficits. GCS 15. Light touch sensation intact. SKIN: Warm and dry, no erythema. no rash. Good capillary refill. (Diana Kern) Constitutional: Initial Vital Signs Temperature (C) 37 C 08/27/17 14:52 Heart Rate 104 H 08/27/17 14:52 Respiratory Rate 20 08/27/17 14:52 Blood Pressure 116/61 08/27/17 14:52 O2 Sat (%) 95 08/27/17 14:52 O2 Delivery Mode Room Air Allergies/Adverse Reactions: No Known Allergies Allergy (Verified 08/27/17 14:51) Home Medications: Medication Instructions Recorded Terazosin HCl [Hytrin 2 MG (*)] 4 mg PO DAILY 05/26/16 Aspirin [Aspirin 81mg (*)] 81 mg PO DAILY 10/28/16 Fluticasone Nasal [Flonase Nasal 2 sprays EACHNARE DAILY 10/29/16 [place]] Atorvastatin Calcium [Lipitor 40 40 mg PO DAILY 07/12/17 mg (*)] Diltiazem Xr [Dilacor Xr 180 MG 180 mg PO BID@07/12/17 (RX)] Acetaminophen [Tylenol ES 500 mg 1,000 mg PO DAILY 07/13/17 (*)] Multivitamins [Multivitamin (*)] 1 each PO DAILY 07/13/17 Omeprazole Magnesium [Prilosec Otc] 20 mg PO DAILY 07/13/17 Losartan Potassium [Cozaar 50 mg 100 mg PO DAILY #60 tab 07/15/17 (*)] Ondansetron Odt [Zofran Odt 4 mg 4 mg PO Q4 #10 tab 07/15/17 (*)] Herbals/Supplements -Info Only 08/14/17 oxyCODONE HCL/ACETAMINOPHEN 1 each PO Q6 PRN #12 tablet 08/27/17 [Percocet 7.5-325 mg Tablet] Medical Decision Making Procedures: Procedure: Splint placement. A right knee immobilizer was applied by the Emergency Room diploma pharmacy technician. After application of the splint I returned and re-examined the patient. The splint was adequately immobilizing the joint and distal to the splint the patient's circulation and sensation was intact. (Diana Kern) ED Course/Re-evaluation: Long discussion regarding x-ray versus MRI of the knee in the emergency room. Patient/ have politely decline which I agree with most beneficial be an MRI and not emergent. Patient prefers outpatient. Given IM Dilaudid with moderate relief of pain. No signs of neurovascular compromise/tenting of skin/compartment syndrome/ extremities and joints examined above and below area of concern and are neurovascularly intact/septic arthritis. Patient offered to have a walker ordered and politely declined and prefers to use his cane. Past ambulation trial prior to discharge from the emergency room. Placed in knee immobilizer, pain control, RICE, Ortho follow-up This patient was seen under the supervision of my secondary supervising physician. I evaluated care for this patient independently. (Diana Kern) The patient was evaluated and managed by the physician equity sales assistant. I have reviewed this chart and I agree with the findings and plan of care as documented , as indicated by my signature. I am the secondary supervising physician. ( Kianna Paula) Differential Diagnosis: Knee injury while [] including but not limited to fracture, ACL injury, contusion, muscular strain, and meniscus injury. (Diana Kern) - Data Points Medications Given: Discontinued Medications Hydromorphone HCl (Dilaudid) 1 mg IM EDNOW ONE Stop: 08/27/17 16:15 Last Admin: 08/27/17 16:18 Dose: 1 mg Ondansetron HCl (Zofran Odt) 4 mg PO EDNOW ONE Stop: 08/27/17 16:15 Last Admin: 08/27/17 16:17 Dose: 4 mg Departure - Departure Disposition: Home, Routine, Self-Care Clinical Impression: Tear of medial collateral ligament of right knee Qualifiers: Encounter type: initial encounter Qualified Code(s): S83.411A - Sprain of medial collateral ligament of right knee, initial encounter Condition: Good Instructions: Knee Sprain (ED), Knee Immobilizer (ED) Additional Instructions: Wear the knee immobilizer while out of bed. Use the cane to aid ambulation. Take Tylenol 650 mg every 4 hours and/or Ibuprofen 600 mg every 8 hours with food as needed for pain. Use Percocet every 6 hours as needed for severe/break through pain. Do not use Tylenol and Percocet concomitantly. Apply ice for 30 minutes at a time; 2-3 times per day for the next 1-2 days. Follow up with Orthopedics in 7-10 days at which time they will evaluate and recommend with you if conservative management versus MRI knee is indicated. Return to the ER immediately if you experience new or worsening pain, discoloration, numbness, tingling, or any other symptoms that concern you. Referrals: Sandy Gonzalez PA [Primary Care Provider] - As per Instructions Pritesh Good MD [Medical Doctor] - As per Instructions Prescriptions: oxyCODONE HCL/ACETAMINOPHEN [Percocet 7.5-325 mg Tablet] 1 each PO Q6 PRN #12 tablet PRN Reason: Pain, Severe
[2017-08-27] MEDS ORDERED: HYDROmorphONE/DILAUDID 2 MG/ML INJ IM ONE (16:14)
[2017-08-27] MEDS ORDERED: ONDANSETRON DISINTEGRATING 4 MG TAB PO ONE (16:14)
[2017-08-27 16:28] VITALS: BP 124/61
== END 2017-08-27 16:35 | disposition home or self-care (01) ==
DX: S83.411A Sprain of medial collateral ligament of right knee, initial encounter (principal); I10 Essential (primary) hypertension; J45.909 Unspecified asthma, uncomplicated; Z87.891 Personal history of nicotine dependence; X58.XXXA Exposure to other specified factors, initial encounter
CPT/HCPCS: L1830

== ENCOUNTER 2017-10-08 21:09 | Emergency (ER) | payer MEDICAID ==
--- NOTE | 2017-10-08 22:10 | EDPHY ---
H & P Stated Complaint: Constipated Time Seen by Provider: 10/08/17 22:00 HPI/ROS: CHIEF COMPLAINT: "I am constipated" HISTORY OF PRESENT ILLNESS: 72-year-old male arrives via private vehicle stating that he attempted to have a bowel movements evening however he felt a large piece of stool that he was unable to manually disimpact himself. Complaining of cramping. No nausea or vomiting. No fever or chills. No back pain. No urinary abnormality. REVIEW OF SYSTEMS: A ten point review of systems was performed and is negative with the exception of the items mentioned in the HPI PAST MEDICAL & SURGICAL HISTORY: Recurrent constipation. Traumatic brain injury. Hyperlipidemia. SOCIAL HISTORY: Nonsmoker. PHYSICAL EXAM (Prior to examination, patient consented to physical exam, hands were washed and my usual and customary physical exam procedures followed) 1) GENERAL: Well-developed, well-nourished, alert and oriented. Appears uncomfortable 2) HEAD: Normocephalic, atraumatic 3) HEENT: Pupils equal, round, reactive to light bilaterally. Sclera anicteric. 4) NECK: Full range of motion, no meningeal signs. 5) LUNGS: Clear auscultation bilaterally, no wheezes, no rhonchi, no retractions. 6) HEART: Regular rate and rhythm, no murmur, no heave, no gallop. 7) ABDOMEN: No guarding, no rebound, no focal tenderness, negative McBurney's, negative Moss's, negative Rovsing's, negative peritoneal sign, unable to elicit any abdominal pain 8) MUSCULOSKELETAL: Moving all extremities, no focal areas of tenderness, no obvious trauma. No peripheral edema or discoloration. 9) BACK: No CVA tenderness, no midline vertebral tenderness, no fluctuance, no step-off, no obvious trauma, no visual or palpable abnormality. 10) SKIN: No rash, no petechiae. 11) rectal: Non thrombosed external hemorrhoid noted, large piece of stool in the rectal vault. DIFFERENTIAL DIAGNOSIS: In no particular include but limited to constipation, bowel obstruction, cauda equina - Personal History Current Tetanus/Diphtheria Vaccine: Yes Current Tetanus Diphtheria and Acellular Pertussis (TDAP): Yes Tetanus Vaccine Date: < 10 years - Medical/Surgical History Hx Asthma: Yes Hx Chronic Respiratory Disease: No Hx Diabetes: No Hx Cardiac Disease: Yes Hx Renal Disease: No Hx Cirrhosis: No Hx Alcoholism: No Hx HIV/AIDS: No Hx Splenectomy or Spleen Trauma: No Other PMH: PSHx: hernia repair, tonsillectomy/adenoidectomy. PMHx: high cholesterol, arthritis, prostate problems, memory issues, HTN - Social History Smoking Status: Former smoker Constitutional: Initial Vital Signs Temperature (C) 37.1 C 10/08/17 21:13 Heart Rate 95 10/08/17 21:13 Respiratory Rate 17 10/08/17 21:13 Blood Pressure 145/73 H 10/08/17 21:13 O2 Sat (%) 94 10/08/17 21:13 O2 Delivery Mode Room Air Allergies/Adverse Reactions: No Known Allergies Allergy (Verified 08/27/17 14:51) Home Medications: Medication Instructions Recorded Terazosin HCl [Hytrin 2 MG (*)] 4 mg PO DAILY 05/26/16 Aspirin [Aspirin 81mg (*)] 81 mg PO DAILY 10/28/16 Fluticasone Nasal [Flonase Nasal 2 sprays EACHNARE DAILY 10/29/16 [place]] Atorvastatin Calcium [Lipitor 40 40 mg PO DAILY 07/12/17 mg (*)] Diltiazem Xr [Dilacor Xr 180 MG 180 mg PO BID@07/12/17 (RX)] Acetaminophen [Tylenol ES 500 mg 1,000 mg PO DAILY 07/13/17 (*)] Multivitamins [Multivitamin (*)] 1 each PO DAILY 07/13/17 Omeprazole Magnesium [Prilosec Otc] 20 mg PO DAILY 07/13/17 Losartan Potassium [Cozaar 50 mg 100 mg PO DAILY #60 tab 07/15/17 (*)] Ondansetron Odt [Zofran Odt 4 mg 4 mg PO Q4 #10 tab 07/15/17 (*)] Herbals/Supplements -Info Only 08/14/17 Peg 3350/Na Sulf,Bicarb,Cl/KCl 1,000 ml PO ONCE #4000 ml 10/08/17 [Golytely (RX)] Medical Decision Making Procedures: 10:09 p.m.: Procedure: Manual disimpaction Indication: Constipation Using a lubricated gloved finger I manually disimpacted an approximately baseball size piece of stool. Patient tolerated this procedure well ED Course/Re-evaluation: 10:37 p.m.: Manual disimpaction followed by soapsuds enema resulting an positive spontaneous stool output at this time. Patient feeling improvement. I re-examined the patient. Abdomen is soft no guarding no rebound. He appears improved. Plan will be discharge. I do not think that further diagnostic studies are indicated at this time. He feels comfortable being discharged. Care of patient under supervision of secondary supervising physician Dr Zepeda . Departure - Departure Disposition: Home, Routine, Self-Care Clinical Impression: Constipation Qualifiers: Constipation type: unspecified constipation type Qualified Code(s): K59.00 - Constipation, unspecified Condition: Good Instructions: Constipation (ED) Additional Instructions: Seek immediate medical attention if you develop new or worsening symptoms, if you develop fevers, chills, inability to tolerate oral intake or any other symptoms that concerns you. Referrals: SHIRA WALKER [Other] - 1-2 days without fail Prescriptions: Peg 3350/Na Sulf,Bicarb,Cl/KCl [Golytely (RX)] 1,000 ml PO ONCE #4000 ml
[2017-10-08 23:08] VITALS: BP 121/59
== END 2017-10-08 23:07 | disposition home or self-care (01) ==
DX: K59.00 Constipation, unspecified (principal); I10 Essential (primary) hypertension; J45.909 Unspecified asthma, uncomplicated; Z79.82 Long term (current) use of aspirin; Z87.891 Personal history of nicotine dependence

== ENCOUNTER 2017-12-02 11:06 | Observation (INO) | payer MEDICAID, OTHER ==
[2017-12-02] MEDS ORDERED: fentaNYL 100 MCG/2 ML INJ IVP ONE (11:59)
[2017-12-02] MEDS ORDERED: ONDANSETRON 4 MG/2 ML VIAL IVP ONE (12:50)
[2017-12-02] MEDS ORDERED: NS 1,000 ML IV ONE (13:09)
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
[2017-12-02] MEDS ORDERED: IOPAMIDOL (ISOVUE-300) 100 ML BTL ONE (14:05)
[2017-12-02] MEDS ORDERED: LET GEL TOPICAL 1 EA SYR TP ONE ×2 (14:05→14:12)
[2017-12-02] MEDS ORDERED: ONDANSETRON 4 MG/2 ML VIAL IVP PRN (16:19)
[2017-12-02] MEDS ORDERED: ONDANSETRON DISINTEGRATING 4 MG TAB PO PRN (16:19)
[2017-12-02] MEDS ORDERED: ACETAMINOPHEN 325 MG TAB PO PRN (16:19)
[2017-12-02] MEDS ORDERED: LACTULOSE 20 GM/30 ML UDCUP PO PRN (17:10)
[2017-12-02] MEDS ORDERED: POLYETHYLENE GLYCOL 3350 17 GM PKT PO PRN (17:10)
[2017-12-02] MEDS ORDERED: BISACODYL 10 MG SUPP PR PRN (17:10)
[2017-12-02] MEDS ORDERED: MAGNESIUM HYDROXIDE 30 ML UDCUP PO PRN (17:10)
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
[2017-12-02] MEDS: SENNOSIDES/DOCUSATE SODIUM TAB PO SCH (20:04)
[2017-12-02] MEDS: HYDROCODONE/APAP 5/325 TAB PO PRN (20:04)
[2017-12-02] MEDS: IBUPROFEN 600 MG TAB PO SCH (21:32)
[2017-12-03] MEDS: HYDROCODONE/APAP 5/325 TAB PO PRN ×2 (03:20→10:25)
[2017-12-03] MEDS: IBUPROFEN 600 MG TAB PO SCH ×3 (05:00→22:37)
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
[2017-12-03] MEDS: SENNOSIDES/DOCUSATE SODIUM TAB PO SCH ×2 (11:20→22:37)
[2017-12-03] MEDS: ENOXAPARIN 40 MG/0.4 ML SYR SC SCH (11:21)
[2017-12-03] MEDS: ACETAMINOPHEN 500 MG TAB PO SCH ×3 (12:17→22:37)
--- NOTE | 2017-12-03 12:51 | ASMTLACE ---
STEVEN Comorbidities - select Answers: Other Notes: HTN, hyperlipidemia, BP H, all that apply cervical stenosis # of Emergency department Answers: 3-4 visits in the last 6 months Score: 4 Date Signed: 12/03/2017 12:51 PM Electronically Signed By:Corin Hull RN
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
[2017-12-03] MEDS: oxyCODONE IR 5 MG TAB PO PRN ×3 (14:56→22:36)
[2017-12-03] MEDS: METHOCARBAMOL 750 MG TAB PO PRN (22:36)
[2017-12-03] MEDS: DILTIAZEM CD 180 MG CAP PO SCH (22:37)
[2017-12-03] MEDS: DOCUSATE SODIUM 100 MG CAP PO SCH (22:37)
[2017-12-03] MEDS: ATORVASTATIN CALCIUM 40 MG TAB PO SCH (22:37)
[2017-12-04] MEDS: oxyCODONE IR 5 MG TAB PO PRN ×5 (02:38→20:51)
[2017-12-04] MEDS: IBUPROFEN 600 MG TAB PO SCH ×3 (05:01→21:02)
[2017-12-04] MEDS: METHOCARBAMOL 750 MG TAB PO PRN ×3 (06:25→22:04)
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
[2017-12-04] MEDS: PSYLLIUM METAMUCIL 1 PKT PO SCH (09:38)
[2017-12-04] MEDS: LOSARTAN POTASSIUM 50 MG TAB PO SCH (09:39)
[2017-12-04] MEDS: PANTOPRAZOLE SODIUM 40 MG TAB PO SCH (09:39)
[2017-12-04] MEDS: DOCUSATE SODIUM 100 MG CAP PO SCH ×2 (09:40→20:59)
[2017-12-04] MEDS: DILTIAZEM CD 180 MG CAP PO SCH ×2 (09:40→20:59)
[2017-12-04] MEDS: ACETAMINOPHEN 500 MG TAB PO SCH ×3 (09:41→20:59)
[2017-12-04] MEDS: TERAZOSIN HCL 2 MG CAP PO SCH (09:41)
[2017-12-04] MEDS: MULTIVITAMINS 1 EACH TAB PO SCH (09:41)
[2017-12-04] MEDS: ENOXAPARIN 40 MG/0.4 ML SYR SC SCH (09:42)
[2017-12-04] MEDS: SENNOSIDES/DOCUSATE SODIUM TAB PO SCH ×2 (10:37→21:00)
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
[2017-12-04] MEDS: ATORVASTATIN CALCIUM 40 MG TAB PO SCH (20:59)
[2017-12-05] MEDS: oxyCODONE IR 5 MG TAB PO PRN ×4 (01:49→14:13)
[2017-12-05] MEDS: ONDANSETRON DISINTEGRATING 4 MG TAB PO PRN ×2 (02:56→13:14)
[2017-12-05] MEDS: METHOCARBAMOL 750 MG TAB PO PRN (06:08)
[2017-12-05] MEDS: IBUPROFEN 600 MG TAB PO SCH ×2 (06:09→13:10)
[2017-12-05] MEDS: LOSARTAN POTASSIUM 50 MG TAB PO SCH (07:57)
[2017-12-05] MEDS: DILTIAZEM CD 180 MG CAP PO SCH (07:58)
[2017-12-05] MEDS: PANTOPRAZOLE SODIUM 40 MG TAB PO SCH (07:58)
[2017-12-05] MEDS: ACETAMINOPHEN 500 MG TAB PO SCH (07:59)
[2017-12-05] MEDS: SENNOSIDES/DOCUSATE SODIUM TAB PO SCH (07:59)
[2017-12-05] MEDS: MULTIVITAMINS 1 EACH TAB PO SCH (07:59)
[2017-12-05] MEDS: TERAZOSIN HCL 2 MG CAP PO SCH (08:00)
[2017-12-05] MEDS: ENOXAPARIN 40 MG/0.4 ML SYR SC SCH (08:00)
[2017-12-05] MEDS: DOCUSATE SODIUM 100 MG CAP PO SCH (08:00)
[2017-12-05] MEDS: PSYLLIUM METAMUCIL 1 PKT PO SCH (08:00)
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
[2017-12-05 11:50] VITALS: BP 164/70
[2017-12-05] MEDS ORDERED: FAMOTIDINE 20 MG TAB PO ONE (13:04)
[2017-12-05] MEDS ORDERED: HYDROCORTISONE 0.5% CREAM TP SCH (13:15)
--- NOTE | 2017-12-05 13:55 | ASMTCMCOM ---
CM Note CM Note Notes: Pt medically stable for d/c. Pt has 24/hr supervision, declines meals on wheels. No CM d/c needs identified. Date Signed: 12/05/2017 01:54 PM Electronically Signed By:MELISSA Funez
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
== END 2017-12-05 15:15 | disposition home or self-care (01) ==
LOC: EDUNIT# → F3N 17:21
PROVIDERS: ADMIT Surgery; ATTEND Surgery
PROC: 0HQBXZZ Repair Right Upper Arm Skin, External Approach (ICD-10-PCS; principal; 2017-12-02)
DX: S42.294A Other nondisplaced fracture of upper end of right humerus, initial encounter for closed fracture (principal); S52.024A Nondisplaced fracture of olecranon process without intraarticular extension of right ulna, initial encounter for closed fracture; S51.011A Laceration without foreign body of right elbow, initial encounter; S80.211A Abrasion, right knee, initial encounter; V29.9XXA Motorcycle rider (driver) (passenger) injured in unspecified traffic accident, initial encounter; Y92.410 Unspecified street and highway as the place of occurrence of the external cause; Y99.8 Other external cause status; I10 Essential (primary) hypertension; E78.5 Hyperlipidemia, unspecified; R40.2412 Glasgow coma scale score 13-15, at arrival to emergency department; M48.02 Spinal stenosis, cervical region; N40.0 Benign prostatic hyperplasia without lower urinary tract symptoms; Z87.891 Personal history of nicotine dependence
CPT/HCPCS: 12002; 71260; 72100; 73030; 73080; 73201; 73564; 74177; 92523; 96374; 96375; 97161; 97165; 97535; 99285; G0378; 82435-PO; 82565-PO; 82947-PO; 84132-PO; 84295-PO; 84520-PO; 85014-PO; G0390; J1650; J2270; J2405; J3010; Q9967

== ENCOUNTER 2018-03-25 09:57 | Inpatient (IN) | payer MEDICAID ==
[2018-03-25] MEDS ORDERED: CHLORHEXIDINE GLUC HIBICLENS 118 ML BTL TP ONE (10:01)
[2018-03-25] MEDS ORDERED: BACITRACIN 50,000 UNITS/10 ML SYR IRR ONE (10:02)
[2018-03-25] MEDS ORDERED: EPINEPHrine 1 MG/ML INJ ONE (10:02)
[2018-03-25] MEDS ORDERED: BUPIVACAINE 0.25% 30 ML SDV ONE (10:02)
[2018-03-25] MEDS ORDERED: ceFAZolin 2 GM/DEXTROSE 100 ML IV ONE (10:15)
[2018-03-25] MEDS ORDERED: ACETAMINOPHEN 500 MG TAB PO ONE (10:15)
[2018-03-25] MEDS ORDERED: GABAPENTIN 300 MG CAP PO ONE (10:15)
[2018-03-25] MEDS ORDERED: LIDOCAINE 1% 2 ML INJ ID PRN (10:16)
[2018-03-25] MEDS ORDERED: LR 1,000 ML IV ONE (10:16)
[2018-03-25] MEDS ORDERED: MIDAZOLAM 2 MG/2 ML VIAL IVP ONE (12:49)
--- NOTE | 2018-03-25 12:49 | PDANEPAE ---
ANE History of Present Illness 72 yo for acdf ANE Past Medical History - Cardiovascular History Hx Hypertension: Yes Hx Arrhythmias: No Hx Chest Pain: No Hx Coronary Artery / Peripheral Vascular Disease: No Hx CHF / Valvular Disease: No Hx Palpitations: No Cardiovascular History Comment: hyperlipidemia - Pulmonary History Hx COPD: No Hx Asthma/Reactive Airway Disease: No Hx Recent Upper Respiratory Infection: No Hx Oxygen in Use at Home: No Hx Sleep Apnea: No Sleep Apnea Screening Result - Last Documented: Positive Pulmonary History Comment: OCCAS ASTHMA W/URIs - Neurologic History Hx Cerebrovascular Accident: No Hx Seizures: No Hx Dementia: No Neurologic History Comment: MIGRAINES WHEN YOUNGER. cervical and lumbar stenosis - Endocrine History Hx Diabetes: No - Renal History Hx Renal Disorders: Yes Renal History Comment: enlarged prostate - Liver History Hx Hepatic Disorders: No - Neurological & Psychiatric Hx Hx Neurological and Psychiatric Disorders: No - Cancer History Hx Cancer: No - Congenital Disorder History Hx Congenital Disorders: No Congenital History Comment: Dyslexia; - GI History Hx Gastrointestinal Disorders: Yes Gastrointestinal History Comment: reflux. egd/ colonoscopy 08/18/17 with [facility] - Other Health History Other Health History: wears glasses. upper denture - Chronic Pain History Chronic Pain: Yes (neck, back) - Surgical History Prior Surgeries: 08/18/17 EGD and Colonoscopy with [facility]. HERNIA R ING 1968;. TONSILLECTOMY;. FX JAW REPAIRED;. R knee; ANE Review of Systems Review of Systems: - Exercise capacity METS (RN): 6 METS ANE Patient History - Allergies Allergies/Adverse Reactions: No Known Allergies Allergy (Verified 03/10/18 11:49) - Home Medications Home medications: home medication list seen and reviewed Home Medications: Atorvastatin Calcium [Lipitor 40 mg (*)] 40 mg PO HS 12/02/17 [Last Taken ] Diltiazem Xr [Dilacor Xr 180 MG (RX)] 180 mg PO DAILY 12/02/17 [Last Taken 03/25] Docusate Sodium [Colace 100 MG (*)] 200 mg PO HS 12/02/17 [Last Taken 03/24/18] Omeprazole Magnesium [Acid Equal Opportunity Officer] 20 mg PO DAILY 12/02/17 [Last Taken 03/25/18 ] Terazosin HCl [Hytrin 2 MG (*)] 2 mg PO BID 12/02/17 [Last Taken 03/25/18] Acetaminophen [Tylenol ES 500 mg (*)] 1,000 mg PO BID PRN 01/05/18 [Last Taken 03/24/18] Albuterol [Proventil Inhaler HFA (*)] 1 - 2 puffs IH DAILY PRN 03/06/18 [Last Taken 02/23/18] Fluticasone Nasal [Flonase Nasal [place] (RX)] 2 sprays NASAL BID 03/06/18 [Last Taken 03/24/18] Losartan Potassium [Cozaar 50 mg (*)] 50 mg PO BID 03/06/18 [Last Taken 03/24/18 ] - NPO status NPO Status: no food or drink >8 hours NPO Since - Liquids (Date): 03/25/18 NPO Since - Liquids (Time): 08:00 NPO Since - Solids (Date): 03/24/18 NPO Since - Solids (Time): 21:00 - Smoking Hx Smoking Status: Former smoker - Family Anes Hx Family Hx Anesthesia Complications: none ANE Labs/Vital Signs - Vital Signs Blood Pressure: 178/86 Heart Rate: 88 Respiratory Rate: 13 O2 Sat (%): 95 Height: 5 ft 8.5 in Weight: 78.925 kg ANE Physical Exam - Airway Neck exam: decreased ROM Mallampati Score: Class 2 Mouth exam: dentures - Pulmonary Pulmonary: no respiratory distress - Cardiovascular Cardiovascular: regular rate and rhythym - ASA Status ASA Status: II ANE Anesthesia Plan Anesthesia Plan: general endotracheal anesthesia Specialized Airway: video laryngoscope
--- NOTE | 2018-03-25 13:00 | PDHPUP ---
History & Physical Update H&P update statement: This history and physical update is based on an assessment of the patient which was completed after admission or registration (within 24 hours), but prior to the surgery/procedure. H&P update: H&P reviewed & patient examined, no change in patient's condition since H&P completed
[2018-03-25] MEDS ORDERED: PROPOFOL/EMULSION 500 MG/50 ML BOTTLE IV ONE ×2 (13:10→15:12)
[2018-03-25] MEDS ORDERED: fentaNYL 100 MCG/2 ML INJ ONE ×3 (13:10→17:36)
[2018-03-25] MEDS ORDERED: REMIFENTANIL HCL 1 MG VIAL ONE ×2 (13:10→15:12)
[2018-03-25] MEDS ORDERED: ROCURONIUM 50 MG/5 ML VIAL ONE (13:13)
[2018-03-25] MEDS ORDERED: DEXAMETHASONE 4 MG/ML VIAL ONE (13:13)
[2018-03-25] MEDS ORDERED: METOCLOPRAMIDE 10 MG/2 ML VIAL ONE (13:13)
[2018-03-25] MEDS ORDERED: THROMBIN (BOVINE) 5,000 UNIT VIAL TP ONE (13:48)
[2018-03-25] MEDS ORDERED: SURGIFLO MATRIX KIT WITH THROMBIN 8 ML TP ONE (15:37)
[2018-03-25] MEDS ORDERED: LACTULOSE 20 GM/30 ML UDCUP PO PRN (17:28)
[2018-03-25] MEDS ORDERED: ONDANSETRON 4 MG/2 ML VIAL IVP PRN ×2 (17:28→17:33)
[2018-03-25] MEDS ORDERED: BISACODYL 10 MG SUPP PR PRN (17:28)
[2018-03-25] MEDS ORDERED: POLYETHYLENE GLYCOL 3350 17 GM PKT PO PRN (17:28)
[2018-03-25] MEDS ORDERED: MAGNESIUM HYDROXIDE 30 ML UDCUP PO PRN (17:28)
[2018-03-25] MEDS ORDERED: diphenhydrAMINE 25 MG CAP PO PRN (17:28)
[2018-03-25] MEDS ORDERED: NALOXONE HCL 0.4 MG/ML INJ IVP PRN (17:33)
--- NOTE | 2018-03-25 17:40 | POSTOPPROG ---
Post Op Note Date of Operation: 03/25/18 Surgeon: Everton Arambula Lubrication Worker: Malka Warren PA-C Anesthesia: GET(General Endotracheal) Pre-op Diagnosis: Cervical Stenosis with myelopahty Post-op Diagnosis: same Procedure: Posterior cervical instrumented fusion C3-C7 Inf/Abcess present in the surg proc area at time of surgery?: No Depth: Organ Space EBL: 100-500 Complications: None observed, see dictated operative report for full surgical report Drains: Arnel Brooks SOAP Progress Note Assessment/Plan: Assessment: Plan: 03/25/18 17:37 S: Patient in PACU. Somnolent still but waking up from surgery O: NAD, VSS Somnolent but arousable and following commands KELLER X4 with good strength- LLE moving less immediately after surgery but improving as he wakes Hoffmans present bilaterally as well as was prior to surgery Cervical collar in place Posterior incision c/d/i-dressed steri strips in place A: 72 yo male sp Posterior cervical instrumented fusion C3-C7 for cervical stenosis and myelopathy -Admit to med/surg -Optimize pain management -Hard collar in place- may need to be refit -HAL x1 to full suction -Postop x-rays in am -PT/OT -Please contact NS with any changes in motor/neuro exam -Patient was seen in PACU by Dr. Arambula. Objective: Vital Signs Temp Pulse Resp BP Pulse Ox 36.6 C 88 13 178/86 H 95 03/25/18 10:41 03/25/18 12:49 03/25/18 12:49 03/25/18 12:49 03/25/18 12:49
[2018-03-25] MEDS: fentaNYL 100 MCG/2 ML INJ IVP PRN ×2 (17:42→17:50)
[2018-03-25] MEDS ORDERED: DIAZEPAM 5 MG/ML 1 ML SYR ONE (17:54)
[2018-03-25] MEDS ORDERED: ALBUTEROL 60 PUFFS/8 GM MDI IH PRN (17:55)
[2018-03-25] MEDS: DIAZEPAM 5 MG/ML 1 ML SYR IVP PRN (17:55)
[2018-03-25] MEDS ORDERED: KETOROLAC 15 MG/1 ML SDV IVP ONE (17:57)
[2018-03-25] MEDS ORDERED: KETOROLAC 15 MG/1 ML SDV ONE (17:59)
--- NOTE | 2018-03-25 18:19 | GOP ---
DATE OF OPERATION: 03/25/2018 SURGEON: Everton Arambula MD NEUROSURGEON: Everton Arambula MD HOME CARE RN: Malka Santana PA-C. PREOPERATIVE DIAGNOSIS: Cervical myelopathy. POSTOPERATIVE DIAGNOSIS: Cervical myelopathy. PROCEDURE PERFORMED: 1. Posterior spinal fusion C3-C7. 2. Placement of lateral mass and 4 pedicle screws at C3, C4, C5, C7. 3. Complete laminectomy C3, C4, C5, C6, C7. 4. Use of O arm/stealth stereotactic navigation for screw placement. 5. Moyers of local autograft. 6. Use of allograft BMP. 7. Intraoperative neurophysiological monitoring, including somatosensory-evoked potentials, motor-ev oked potentials, and EMG. FINDINGS: A successful decompression fusion C3-7. SPECIMENS: There were no specimens. ESTIMATED BLOOD LOSS: 100 cc. INDICATIONS: This is a 72-year-old man who presented with difficulty with balance. 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 He had some signal change in the cord and his exam was consistent with myelopathy. Given the signs of the ossif ication of the posterior longitudinal ligament, we elected to posterior decompression and fusion. He presents electively today for that surgery. DESCRIPTION OF PROCEDURE: After informed consent was obtained from the patient, the patient brought to the operating room and a formal time-out was performed, identifying the patient by name, medical ecord number and date of . Preoperative antibiotics were given. The endotracheal tube was plac ed and general endotracheal anesthesia was smoothly induced. All appropriate monitoring leads were p laced for intraoperative neurophysiologic monitoring. The patient's head was placed in the [place] pins and then he was turned to the prone position on the Arnel table with the head in the neutral p osition. The posterior neck was then prepped and draped in the normal sterile fashion. The midline skin incision was made using a 10 blade. The subcutaneous tissues were dissected using monopolar rakesh ctrocautery. The fascia was opened in the midline and the paraspinous muscles were taken down from t he lateral masses and spinous processes of C3, 4, 5, 6 and 7. Once we had exposed the lateral masses completely, the navigation frame was placed on the C2 spinous process. An O-arm spin was obtained s howing the relevant anatomy throughout the cervical spine. We then were able to identify the entry p oints for the pedicle screws at C7. Starting on the left side, the pedicle was drilled, however, it seemed to be breached laterally. The navigation was not lining up properly with what we were seeing clinically. Therefore, a 2nd O-arm spin was obtained similar to the 1st. This allowed us to then pr obe the left-sided C7 pedicle with no breach and a Medtronic Infinity 3.5 x 26 mm screw was placed th ere. The same procedure was performed on the right side at C7 and a 3.5 x 26 mm Medtronic Infinity s crew was placed there as well. Each lateral mass was then drilled with a superior lateral trajectory using the navigation, and 3.5 x 18 mm Medtronic Infinity screws were placed in the lateral mass at C 3 and 3.5 x 16 mm screws were placed in the lateral masses of C4 and C5. We elected to skip the C6 l evel given that we could not fit the screw head in between C5 and C7 screws. At this point, another O-arm spin was obtained showing all the screws in good placement without breach or encroachment of th e vertebral artery. At this point, the high-speed drill was then used to drill lateral troughs at th e lamina of C3, C4, C5, C6, and C7. Kerrison punches were used to complete the laminectomies and the spinal canal was decompressed widely from C3-C7. The motor evoked potentials were performed intermi ttently and remained at baseline. Once the complete laminectomies and decompression were performed, the wound was copiously irrigated using bacitracin irrigation. The lateral masses were then decortic ated from C3-C7 for posterior lateral fusion and the bone harvested from the spinous process and lami na was morselized. BMP was placed laterally over the lateral masses for the bony fusion and the auto graft was then placed, completing the fusion process. 70 mm titanium rods were then bent appropriate ly and placed into the screw heads and were locked in place using the locking caps which were tighten ed to their final torque. All hardware was stable at this point. All bleeding was controlled using bipolar electrocautery and Gelfoam. A 10-[place] HAL drain was placed in the subfascial space. The fa scia was closed in the midline using interrupted 0 Vicryl. The deep dermis closed using interrupted 2-0 Vicryl. The skin was closed using Steri-Strips. Sterile dressings were placed. The patient was awakened in the operating room where he was extubated and transferred to the PACU in stable conditio n. There were no operative complications. I was scrubbed and present for the entire procedure. All sponge and needle counts were correct at the end of the case. FLUIDS AND URINE OUTPUT: Per the anesthesia record. DRAINS: Subfascial HAL. All neuro monitoring was stable throughout the case. /[id number]/MODL
[2018-03-25] MEDS: oxyCODONE IR 5 MG TAB PO PRN ×2 (19:31→20:07)
[2018-03-25] MEDS: SENNOSIDES/DOCUSATE SODIUM TAB PO SCH (20:07)
[2018-03-25] MEDS: ATORVASTATIN CALCIUM 40 MG TAB PO SCH (20:07)
[2018-03-25] MEDS: DOCUSATE SODIUM 100 MG CAP PO SCH (20:07)
[2018-03-25] MEDS: METHOCARBAMOL 750 MG TAB PO SCH (20:07)
[2018-03-25] MEDS: LOSARTAN POTASSIUM 50 MG TAB PO SCH (20:08)
[2018-03-25] MEDS: ACETAMINOPHEN 500 MG TAB PO SCH (21:18)
[2018-03-25] MEDS: ceFAZolin 2 GM/DEXTROSE 100 ML IV SCH (21:18)
[2018-03-25] MEDS: TERAZOSIN HCL 2 MG CAP PO SCH (21:18)
[2018-03-25] MEDS: GABAPENTIN 300 MG CAP PO SCH (21:24)
[2018-03-26] MEDS: oxyCODONE IR 5 MG TAB PO PRN ×4 (00:16→20:51)
[2018-03-26] MEDS: ACETAMINOPHEN 500 MG TAB PO SCH ×3 (06:14→20:51)
[2018-03-26] MEDS: METHOCARBAMOL 750 MG TAB PO SCH ×4 (06:14→20:52)
[2018-03-26] MEDS: GABAPENTIN 300 MG CAP PO SCH ×3 (06:14→20:52)
[2018-03-26] MEDS: ceFAZolin 2 GM/DEXTROSE 100 ML IV SCH (06:20)
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
[2018-03-26] MEDS: LOSARTAN POTASSIUM 50 MG TAB PO SCH ×2 (09:13→20:52)
[2018-03-26] MEDS: PANTOPRAZOLE SODIUM 40 MG TAB PO SCH (09:13)
[2018-03-26] MEDS: DILTIAZEM CD 180 MG CAP PO SCH (09:13)
[2018-03-26] MEDS: SENNOSIDES/DOCUSATE SODIUM TAB PO SCH ×2 (09:14→20:52)
[2018-03-26] MEDS: TERAZOSIN HCL 2 MG CAP PO SCH ×2 (09:14→20:52)
--- NOTE | 2018-03-26 10:41 | ASMTCMCOM ---
CM Note CM Note Notes: Spoke with pt in the room. Pt lives independently with housemate and states that he feels his housemate can be helpful post discharge. PT currently recommending OP rehab. Pt feels comfortable getting to OP PT independently if needed. No CM needs noted at this time. CM to follow. D/C Plan: Independent Date Signed: 03/26/2018 10:40 AM Electronically Signed By:Sue Elam
[2018-03-26] MEDS: DIAZEPAM 5 MG/ML 1 ML SYR IVP PRN (10:58)
--- NOTE | 2018-03-26 11:56 | PDMN ---
Medical Necessity Medical necessity: Pt meets INPT criteria per [place] and [facility] [place] Cervical Fusion, Posterior (posterior cervical instrumented fusion C3-C7 - [facility] IPO surgery).
[2018-03-26] MEDS: TAMSULOSIN HCL 0.4 MG CAP PO SCH (14:08)
[2018-03-26] MEDS: ONDANSETRON DISINTEGRATING 4 MG TAB PO PRN (18:12)
[2018-03-26] MEDS: DIAZEPAM 5 MG TAB PO PRN (20:51)
[2018-03-26] MEDS: ATORVASTATIN CALCIUM 40 MG TAB PO SCH (20:52)
[2018-03-26] MEDS: DOCUSATE SODIUM 100 MG CAP PO SCH (20:52)
[2018-03-27] MEDS: oxyCODONE IR 5 MG TAB PO PRN ×5 (00:56→23:00)
[2018-03-27] MEDS: METHOCARBAMOL 750 MG TAB PO SCH ×4 (05:18→20:39)
[2018-03-27] MEDS: GABAPENTIN 300 MG CAP PO SCH ×3 (05:18→23:00)
[2018-03-27] MEDS: ACETAMINOPHEN 500 MG TAB PO SCH ×3 (05:19→23:00)
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
[2018-03-27] MEDS: TAMSULOSIN HCL 0.4 MG CAP PO SCH (09:58)
[2018-03-27] MEDS: LOSARTAN POTASSIUM 50 MG TAB PO SCH ×2 (09:58→20:37)
[2018-03-27] MEDS: DILTIAZEM CD 180 MG CAP PO SCH (09:58)
[2018-03-27] MEDS: TERAZOSIN HCL 2 MG CAP PO SCH ×2 (09:58→20:37)
[2018-03-27] MEDS: SENNOSIDES/DOCUSATE SODIUM TAB PO SCH ×2 (09:59→20:38)
[2018-03-27] MEDS: PANTOPRAZOLE SODIUM 40 MG TAB PO SCH (09:59)
[2018-03-27] MEDS: ENOXAPARIN 40 MG/0.4 ML SYR SC SCH (10:00)
--- NOTE | 2018-03-27 15:16 | PDIAF ---
- Diagnosis Code Status: Full Code - Medication Management Discharge Medications: Medications to Continue on Transfer Atorvastatin Calcium [Lipitor 40 mg (*)] 40 mg PO HS 12/02/17 [Last Taken ] Diltiazem Xr [Dilacor Xr 180 MG (RX)] 180 mg PO DAILY 12/02/17 [Last Taken 03/25] Docusate Sodium [Colace 100 MG (*)] 200 mg PO HS 12/02/17 [Last Taken 03/24/18] Omeprazole Magnesium [Acid Industrial Sociologist] 20 mg PO DAILY 12/02/17 [Last Taken 03/25/18 ] Terazosin HCl [Hytrin 2 MG (*)] 2 mg PO BID 12/02/17 [Last Taken 03/25/18] Acetaminophen [Tylenol ES 500 mg (*)] 1,000 mg PO BID PRN 01/05/18 [Last Taken 03/24/18] Albuterol [Proventil Inhaler HFA (*)] 1 - 2 puffs IH DAILY PRN 03/06/18 [Last Taken 02/23/18] Fluticasone Nasal [Flonase Nasal [place]] 2 sprays NASAL BID 03/06/18 [Last Taken 03/24/18] Losartan Potassium [Cozaar 50 mg (*)] 50 mg PO BID 03/06/18 [Last Taken 03/24/18 ] Gabapentin [Neurontin 300 MG (*)] 600 mg PO Q8HRS #90 cap 03/27/18 [Last Taken Unknown] Methocarbamol [Robaxin 750 mg (*)] 750 mg PO QID #60 tab 03/27/18 [Last Taken Unknown] Polyethylene Glycol 3350 [Miralax 17 gm (*)] 17 gm PO DAILY PRN pkt 03/27/18 [ Last Taken Unknown] Sennosides/Docusate Sodium [Senokot-S] 1 - 2 tab PO BID tab 03/27/18 [Last Taken Unknown] oxyCODONE IR [Oxycodone Ir (*)] 5 - 10 mg PO Q4HRS PRN #60 tab 03/27/18 [Last Taken Unknown] Discharge Medications: Refer to the Discharge Home Medication list for PRN reason. - Orders Services needed: Physical Therapy, Occupational Therapy Diet Recommendation: no restrictions on diet Diet Texture: Regular Texture Diet Activity/Weight Bearing Restrictions: no lifting over 10 lbs x 6 weeks. no cervical ROM. Maintain hard collar at all times - Follow Up Care Current Providers and Referrals: Sandy Gonzalez PA [Primary Care Provider] -
--- NOTE | 2018-03-27 15:54 | ASMTCMCOM ---
CM Note CM Note Notes: Pt medically stable for d/c with [facility] PT/OT. Orders to be obtained via [employer]. Date Signed: 03/27/2018 03:53 PM Electronically Signed By:MELISSA Funez
--- NOTE | 2018-03-27 15:54 | ASMTCMCOM ---
CM Note CM Note Notes: Addendum to note: PT and OT now recommending HHC. Pt agreeable to [facility]. Referral sent. Likely discharge tomorrow. D/C Plan: Home with [facility]. Date Signed: 03/27/2018 03:53 PM Electronically Signed By:MELISSA Funez
--- NOTE | 2018-03-27 15:55 | ASMTLACE ---
LACE Length of stay for Answers: 3 days current admission Acuity / Level of Answers: Yes Care: Did the patient have an inpatient admission? Comorbidities - select Answers: Opioid dependence all that apply / Chronic pain Other Notes: HTN; HLD # of Emergency department Answers: 3-4 visits in the last 6 months Score: 14 Date Signed: 03/27/2018 03:54 PM Electronically Signed By:MELISSA Funez
--- NOTE | 2018-03-27 16:25 | ASMTCMCOM ---
CM Note CM Note Notes: Pt will not d/c today, likely d/c tomorrow with [facility] OT/PT and SOC Friday. CM to follow. Date Signed: 03/27/2018 04:24 PM Electronically Signed By:MELISSA Funez
[2018-03-27] MEDS: ATORVASTATIN CALCIUM 40 MG TAB PO SCH (20:38)
[2018-03-27] MEDS: DOCUSATE SODIUM 100 MG CAP PO SCH (20:38)
[2018-03-28] MEDS: GABAPENTIN 300 MG CAP PO SCH ×3 (06:22→22:48)
[2018-03-28] MEDS: ACETAMINOPHEN 500 MG TAB PO SCH ×3 (06:22→22:47)
[2018-03-28] MEDS: METHOCARBAMOL 750 MG TAB PO SCH ×4 (06:23→20:09)
[2018-03-28] MEDS: PANTOPRAZOLE SODIUM 40 MG TAB PO SCH (10:19)
[2018-03-28] MEDS: SENNOSIDES/DOCUSATE SODIUM TAB PO SCH ×2 (10:19→20:10)
[2018-03-28] MEDS: TERAZOSIN HCL 2 MG CAP PO SCH ×2 (10:20→20:09)
[2018-03-28] MEDS: DILTIAZEM CD 180 MG CAP PO SCH (10:20)
[2018-03-28] MEDS: TAMSULOSIN HCL 0.4 MG CAP PO SCH (10:20)
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
[2018-03-28] MEDS: LOSARTAN POTASSIUM 50 MG TAB PO SCH ×2 (10:21→20:04)
[2018-03-28] MEDS: ENOXAPARIN 40 MG/0.4 ML SYR SC SCH (10:23)
[2018-03-28] MEDS: oxyCODONE IR 5 MG TAB PO PRN ×3 (10:39→20:10)
[2018-03-28] MEDS: ATORVASTATIN CALCIUM 40 MG TAB PO SCH (20:09)
[2018-03-28] MEDS: DOCUSATE SODIUM 100 MG CAP PO SCH (20:09)
[2018-03-29] MEDS: oxyCODONE IR 5 MG TAB PO PRN ×5 (03:42→23:52)
[2018-03-29] MEDS: ACETAMINOPHEN 500 MG TAB PO SCH ×3 (05:33→21:27)
[2018-03-29] MEDS: GABAPENTIN 300 MG CAP PO SCH ×3 (05:33→21:25)
[2018-03-29] MEDS: METHOCARBAMOL 750 MG TAB PO SCH ×4 (05:33→21:25)
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
[2018-03-29] MEDS: DILTIAZEM CD 180 MG CAP PO SCH (09:53)
[2018-03-29] MEDS: LOSARTAN POTASSIUM 50 MG TAB PO SCH ×2 (09:54→21:27)
[2018-03-29] MEDS: PANTOPRAZOLE SODIUM 40 MG TAB PO SCH (09:54)
[2018-03-29] MEDS: TERAZOSIN HCL 2 MG CAP PO SCH ×2 (09:55→21:25)
[2018-03-29] MEDS: SENNOSIDES/DOCUSATE SODIUM TAB PO SCH ×2 (09:55→21:24)
[2018-03-29] MEDS: TAMSULOSIN HCL 0.4 MG CAP PO SCH (09:55)
[2018-03-29] MEDS: ENOXAPARIN 40 MG/0.4 ML SYR SC SCH (09:58)
[2018-03-29] MEDS: ONDANSETRON DISINTEGRATING 4 MG TAB PO PRN (14:41)
[2018-03-29] MEDS: ATORVASTATIN CALCIUM 40 MG TAB PO SCH (21:25)
[2018-03-29] MEDS: DOCUSATE SODIUM 100 MG CAP PO SCH (21:25)
[2018-03-29] MEDS: DIAZEPAM 5 MG TAB PO PRN (23:55)
[2018-03-30] MEDS: oxyCODONE IR 5 MG TAB PO PRN ×3 (02:00→13:01)
[2018-03-30] MEDS: GABAPENTIN 300 MG CAP PO SCH ×2 (06:04→12:58)
[2018-03-30] MEDS: ACETAMINOPHEN 500 MG TAB PO SCH ×2 (06:04→12:57)
[2018-03-30] MEDS: METHOCARBAMOL 750 MG TAB PO SCH ×3 (06:04→15:37)
[2018-03-30] MEDS: DIAZEPAM 5 MG TAB PO PRN (07:40)
[2018-03-30] MEDS: ENOXAPARIN 40 MG/0.4 ML SYR SC SCH (08:42)
[2018-03-30] MEDS: TAMSULOSIN HCL 0.4 MG CAP PO SCH (08:43)
[2018-03-30] MEDS: DILTIAZEM CD 180 MG CAP PO SCH (08:45)
[2018-03-30] MEDS: TERAZOSIN HCL 2 MG CAP PO SCH (08:45)
[2018-03-30] MEDS: SENNOSIDES/DOCUSATE SODIUM TAB PO SCH (08:45)
[2018-03-30] MEDS: LOSARTAN POTASSIUM 50 MG TAB PO SCH (08:46)
[2018-03-30] MEDS: PANTOPRAZOLE SODIUM 40 MG TAB PO SCH (08:46)
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
--- NOTE | 2018-03-30 12:49 | PDIAF ---
- Diagnosis Code Status: Full Code - Medication Management Discharge Medications: Medications to Continue on Transfer Atorvastatin Calcium [Lipitor 40 mg (*)] 40 mg PO HS 12/02/17 [Last Taken ] Diltiazem Xr [Dilacor Xr 180 MG (RX)] 180 mg PO DAILY 12/02/17 [Last Taken 03/25] Docusate Sodium [Colace 100 MG (*)] 200 mg PO HS 12/02/17 [Last Taken 03/24/18] Omeprazole Magnesium [Acid Administrative Office Manager] 20 mg PO DAILY 12/02/17 [Last Taken 03/25/18 ] Terazosin HCl [Hytrin 2 MG (*)] 2 mg PO BID 12/02/17 [Last Taken 03/25/18] Acetaminophen [Tylenol ES 500 mg (*)] 1,000 mg PO BID PRN 01/05/18 [Last Taken 03/24/18] Albuterol [Proventil Inhaler HFA (*)] 1 - 2 puffs IH DAILY PRN 03/06/18 [Last Taken 02/23/18] Fluticasone Nasal [Flonase Nasal [place]] 2 sprays NASAL BID 03/06/18 [Last Taken 03/24/18] Losartan Potassium [Cozaar 50 mg (*)] 50 mg PO BID 03/06/18 [Last Taken 03/24/18 ] Gabapentin [Neurontin 300 MG (*)] 600 mg PO Q8HRS #90 cap 03/27/18 [Last Taken Unknown] Methocarbamol [Robaxin 750 mg (*)] 750 mg PO QID #60 tab 03/27/18 [Last Taken Unknown] Polyethylene Glycol 3350 [Miralax 17 gm (*)] 17 gm PO DAILY PRN pkt 03/27/18 [ Last Taken Unknown] Sennosides/Docusate Sodium [Senokot-S] 1 - 2 tab PO BID tab 03/27/18 [Last Taken Unknown] oxyCODONE IR [Oxycodone Ir (*)] 5 - 10 mg PO Q4HRS PRN #60 tab 03/27/18 [Last Taken Unknown] Diazepam [Valium 5 MG (*)] 5 mg PO Q6HRS PRN #50 tab 03/30/18 [Last Taken Unknown] Discharge Medications: Refer to the Discharge Home Medication list for PRN reason. - Orders Services needed: Home Care, Physical Therapy, Occupational Therapy Home Care Face to Face: I certify that this patient was under my care and that I had the required [id number] encounter meeting the encounter requirements on the discharge day. My findings support the fact that the patient is homebound as defined in Home Care Face to Face Continued: CMS Chapter 7 Medicare Benefits Manual 30.1.1 , The condition of the patient is such that there exists a normal inability to leave home and consequently, leaving home would require a considerable and taxing effort. Diet Recommendation: no restrictions on diet Diet Texture: Regular Texture Diet Activity/Weight Bearing Restrictions: no lifting over 10 lbs x 6 weeks. no cervical ROM. Maintain hard collar at all times Additional Instructions: No cervical ROM. Wear hard collar at all times Call [phone] with any questions/concerns - Follow Up Care Current Providers and Referrals: Sandy Gonzalez PA [Primary Care Provider] -
--- NOTE | 2018-03-30 13:12 | ASMTDCNOTE ---
Case Management Discharge Discharge Order Complete? Answers: Yes Patient to Obtain Answers: Independently Medications Transportation Arranged Answers: Family/Friends Faxed Final Orders Answers: Yes Notes: [facility] Agency/Facility Transfer Answers: Yes Notes: [facility] Report Printed & Faxed to Receiving Agency Family Notified Answers: Yes Notes: Mariia Skinner Discharge Comments Notes: Patient is ready to discharge home today. He has chosen [facility] as his home health care follow up. Notified patient's sisterMariia. Discharge summaries faxed to [facility] [employer]. Patient's roommate to pick him up and transport him home. Mariia Skinner states if roommate can't she will pick patient up and take him home. No further needs. Date Signed: 03/30/2018 01:11 PM Electronically Signed By:Bethany Joseph LCSW
--- NOTE | 2018-03-30 13:42 | ASDISCHSUM ---
Discharge Information Plan Status:Home with Home Health Medically Cleared to Leave:03/30/2018 Discharge Date:03/30/2018 CM D/C Disposition:Home Health Service ADT D/C Disposition:Home Health Service Projected Discharge Date:03/30/2018 11:00 AM Transportation at D/C:Friend Discharge Delay Reason: Follow-Up Date:03/30/2018 11:00 AM Discharge Slot:2 - 12:01 pm - 18:00 pm Final Diagnosis:C3-7 posterior decompression/fusion Placement Information Referral Type:*Home Health Care Services Referral ID:[id number] Provider Name:[facility] Care Address 1:[address] [place] [address] Address 2: City:[place] Selection Factors: State:[place] Patient Contact Information Contact Name:MARIA LUZ Relationship:Sister Address: Work Phone: City: [facility] Phone: [facility] Code: Email: Financial Information Financial Class:Medicaid Primary Plan Desc:[place] Primary Plan Number:[id number] Secondary Plan Desc: Secondary Plan Number: Assessment Information LACE LACE Length of stay for Answers: 3 days current admission Acuity / Level of Answers: Yes Care: Did the patient have an inpatient admission? Comorbidities - select Answers: Opioid dependence all that apply / Chronic pain Other Notes: HTN; HLD # of Emergency department Answers: 3-4 visits in the last 6 months Score: 14 Date Signed: 03/27/2018 03:54 PM Electronically Signed By:MELISSA Funez [facility] CM Progress Note CM Note CM Note Notes: Spoke with pt in the room. Pt lives independently with housemate and states that he feels his housemate can be helpful post discharge. PT currently recommending OP rehab. Pt feels comfortable getting to OP PT independently if needed. No CM needs noted at this time. CM to follow. D/C Plan: Independent Date Signed: 03/26/2018 10:40 AM Electronically Signed By:Sue Elam [facility] CM Progress Note CM Note CM Note Notes: Addendum to note: PT and OT now recommending HHC. Pt agreeable to [facility]. Referral sent. Likely discharge tomorrow. D/C Plan: Home with [facility]. Date Signed: 03/27/2018 03:53 PM Electronically Signed By:MELISSA Funez [facility] CM Progress Note CM Note CM Note Notes: Pt medically stable for d/c with [facility] PT/OT. Orders to be obtained via [employer]. Date Signed: 03/27/2018 03:53 PM Electronically Signed By:MELISSA Funez [facility] CM Progress Note CM Note CM Note Notes: Pt will not d/c today, likely d/c tomorrow with [facility] OT/PT and SOC Friday. CM to follow. Date Signed: 03/27/2018 04:24 PM Electronically Signed By:MELISSA Funez Case Management Discharge Plan Note Case Management Discharge Discharge Order Complete? Answers: Yes Patient to Obtain Answers: Independently Medications Transportation Arranged Answers: Family/Friends Faxed Final Orders Answers: Yes Notes: [facility] Agency/Facility Transfer Answers: Yes Notes: [facility] Report Printed & Faxed to Receiving Agency Family Notified Answers: Yes Notes: Mariia Skinner Discharge Comments Notes: Patient is ready to discharge home today. He has chosen [facility] as his home health care follow up. Notified patient's sisterMariia. Discharge summaries faxed to [facility] [employer]. Patient's roommate to pick him up and transport him home. Mariia Skinner states if roommate can't she will pick patient up and take him home. No further needs. Date Signed: 03/30/2018 01:11 PM Electronically Signed By:Bethany Joseph LCSW Intervention Information
[2018-03-30 16:17] VITALS: BP 113/63
--- NOTE | 2018-04-01 12:05 | POSTANESTH ---
Post Anesthetic Evaluation Cardiovascular Status: Normal, Stable Respiratory Status: Normal, Stable Level of Consciousness/Mental Status: Can Participate in Eval Pain Control: Adequate, Prn Tx Ordered Nausea/Vomiting Control: Adequate, Prn Tx Ordered Complications Possibly Related to Anesthesia: None Noted
== END 2018-03-30 18:21 | disposition home health service (06) | DRG 321 ==
LOC: F3E 09:57 → F3N 18:42
PROVIDERS: ADMIT Neurological Surgery; ATTEND Neurological Surgery
DX: M50.00 Cervical disc disorder with myelopathy, unspecified cervical region (principal); M47.12 Other spondylosis with myelopathy, cervical region; I10 Essential (primary) hypertension; E78.5 Hyperlipidemia, unspecified; J45.998 Other asthma; N40.0 Benign prostatic hyperplasia without lower urinary tract symptoms; G43.909 Migraine, unspecified, not intractable, without status migrainosus
CPT/HCPCS: 97161-GP; 97166-GO; 97535-GO; J0171; J0690; J1100; J1650; J1885; J2250; J2270; J2704; J2765; J3010; J3360

== ENCOUNTER 2018-04-03 13:36 | Inpatient (IN) | payer MEDICAID ==
--- NOTE | 2018-04-03 13:55 | EDPHY ---
H & P Time Seen by Provider: 04/03/18 13:38 HPI/ROS: CHIEF COMPLAINT: Neck pain HISTORY OF PRESENT ILLNESS: The patient is a 72-year-old man who is 9 days out from cervical C3-7 posterior decompression and fusion for spondylitic myelopathy. He was discharged charged home in a hard collar. He had some residual tingling and burning in his hands after the surgery. He has been taking oxycodone and Robaxin. It has caused him to be somewhat sedated at baseline. He states that last night he fell in the shower but did not hurt himself. Today he fell off the deck about 10 in. He landed on his back. He states that this was a trip not a faint. He has not had any worsening of his neurologic symptoms including some weakness in his legs and paresthesias in his arms. He thinks that he heard his neck crack. He was wearing his collar. Severity: Moderate Modifying factors: None REVIEW OF SYSTEMS: Constitutional: denies: chills, fever, recent illness, recent injury EENTM: denies: blurred vision, double vision, nose congestion Respiratory: denies: cough, shortness of breath Cardiac: denies: chest pain, irregular heart rate, lightheadedness, palpitations Gastrointestinal/Abdominal: denies: abdominal pain, diarrhea, nausea, vomiting, blood streaked stools Genitourinary: denies: dysuria, frequency, hematuria, pain Musculoskeletal: denies: joint pain, muscle pain Skin: denies: lesions, rash, jaundice, bruising Neurological: denies: headache, numbness, paresthesia, tingling, dizziness, weakness Hematologic/Lymphatic: denies: blood clots, easy bleeding, easy bruising Immunologic/allergic: denies: HIV/AIDS, transplant 10 systems reviewed and negative except as noted EXAM: GENERAL: Well-appearing, well-nourished and in no acute distress. HEAD: Atraumatic, normocephalic. EYES: Pupils equal round and reactive to light, extraocular movements intact, sclera anicteric, conjunctiva are normal. ENT: TMs normal, nares patent, oropharynx clear without exudates. Moist mucous membranes. NECK: Normal range of motion, supple without lymphadenopathy or JVD. LUNGS: Breath sounds clear to auscultation bilaterally and equal. No wheezes rales or rhonchi. HEART: Regular rate and rhythm without murmurs, rubs or gallops. ABDOMEN: Soft, nontender, normoactive bowel sounds. No guarding, no rebound. No masses appreciated. BACK: No CVA tenderness, no spinal tenderness, step-offs or deformities EXTREMITIES: Normal range of motion, no pitting or edema. No clubbing or cyanosis. NEUROLOGICAL: Cranial nerves II through XII grossly intact. Normal speech, normal gait. 5/5 strength, normal movement in all extremities, normal sensation , normal reflexes mild subjective paresthesias in arms and weakness in legs. States that this is baseline. No objective deficits found on exam. PSYCH: Normal mood, normal affect. SKIN: Warm, dry, normal turgor, no visible rashes or lesions. Source: Patient, EMS, Old records Exam Limitations: No limitations - Personal History Tetanus Vaccine Date: < 10 years - Medical/Surgical History Hx Asthma: Yes Hx Chronic Respiratory Disease: No Hx Diabetes: No Hx Cardiac Disease: Yes Hx Renal Disease: No Hx Cirrhosis: No Hx Alcoholism: No Hx HIV/AIDS: No Hx Splenectomy or Spleen Trauma: No Other PMH: PSHx: hernia repair, tonsillectomy/adenoidectomy. PMHx: high cholesterol, arthritis, prostate problems, memory issues, HTN, knee surgery meniscus tear 2018, spinal stenosis - Family History Significant Family History: No pertinent family hx - Social History Smoking Status: Former smoker Alcohol Use: Sober Drug Use: None Constitutional: Initial Vital Signs Temperature (C) 36.9 C 04/03/18 13:39 Heart Rate 89 04/03/18 13:39 Respiratory Rate 18 04/03/18 13:39 Blood Pressure 166/87 H 04/03/18 13:39 O2 Sat (%) 96 04/03/18 13:39 O2 Delivery Mode Room Air O2 (L/minute) 2 Allergies/Adverse Reactions: No Known Allergies Allergy (Verified 03/10/18 11:49) Home Medications: Medication Instructions Recorded Atorvastatin Calcium [Lipitor 40 40 mg PO HS 12/02/17 mg (*)] Diltiazem Xr [Dilacor Xr 180 MG 180 mg PO DAILY 12/02/17 (RX)] Docusate Sodium [Colace 100 MG (*)] 200 mg PO HS 12/02/17 Omeprazole Magnesium [Acid Cryptologic Support Specialist] 20 mg PO DAILY 12/02/17 Terazosin HCl [Hytrin 2 MG (*)] 2 mg PO BID 12/02/17 Acetaminophen [Tylenol ES 500 mg 1,000 mg PO BID PRN 01/05/18 (*)] Albuterol [Proventil Inhaler HFA 1 - 2 puffs IH DAILY PRN 03/06/18 (*)] Fluticasone Nasal [Flonase Nasal 2 sprays NASAL BID 03/06/18 [place]] Losartan Potassium [Cozaar 50 mg 50 mg PO BID 03/06/18 (*)] Methocarbamol [Robaxin 750 mg (*)] 750 mg PO QID #60 tab 03/27/18 Polyethylene Glycol 3350 [Miralax 17 gm PO DAILY PRN pkt 03/27/18 17 gm (*)] Sennosides/Docusate Sodium 1 - 2 tab PO BID tab 03/27/18 [Senokot-S] oxyCODONE IR [Oxycodone Ir (*)] 5 - 10 mg PO Q4HRS PRN #60 tab 03/27/18 Diazepam [Valium 5 MG (*)] 5 mg PO Q6HRS PRN #50 tab 03/30/18 Medical Decision Making ED Course/Re-evaluation: 3:00 p.m. patient is reassured by the CT scan. He did ask for more oxycodone. I am concerned however that he is taking too much pain medication and this may be why he appears sedated and the is falling. I will leave it to his surgeons to refill his medications. 3:30 p.m. the patient has significant pain getting up and moving to the bathroom. He needs assistance. His housemate is also elderly and uses a cane. His family is requesting that he be sent to a rehabilitation facility. I agree that this is necessary. He is in significant pain but also easily overmedicated. He and his housemate states that his pain and weakness seem to get worse while he was taking gabapentin. They discontinued this 2 days ago thought that he was improving today until he fell again.. I have paged case management as well as Hospital Medicine. 3:50 p.m. I spoke with Dr. Evans who agrees to admit. I have paged Neurosurgery. 4:00 p.m. I spoke with Dr. Desai who was in the OR who will consult. Differential Diagnosis: Partial list of the Differential diagnosis considered include but were not limited to; cervical injury, contusion and although unlikely based on the history and physical exam, I also considered fracture, intracranial injury. I discussed these differential diagnoses and the plan with the patient as well as the usual and expected course. The patient understands that the diagnosis is provisional and that in medicine we are not always correct and that further workup is often warranted. Usual and customary warnings were given. All of the patient's questions were answered. The patient was instructed to return to the emergency department should the symptoms at all worsen or return, otherwise to followup with the physician as we discussed. - Data Points Medications Given: Acetaminophen (Tylenol) 650 mg PO Q6 PRN PRN Reason: Pain, Mild/Fever, Can Take PO Stop: 09/30/18 17:05 Last Admin: 04/04/18 08:23 Dose: 650 mg Diltiazem HCl (Cardizem Er Q24hr) 180 mg PO DAILY [facility]IAN Stop: 10/01/18 08:59 Last Admin: 04/04/18 08:17 Dose: 180 mg Enoxaparin Sodium (Lovenox) 40 mg SC DAILY CRISTIAN Stop: 10/01/18 08:59 Last Admin: 04/04/18 08:07 Dose: 40 mg Fluticasone Propionate (Flonase Nasal [place]) 2 sprays NS BID CRISTIAN Stop: 10/01/18 08:59 Last Admin: 04/04/18 08:19 Dose: 2 sprays Gabapentin (Neurontin) 100 mg PO TID CRISTIAN Stop: 09/30/18 21:59 Last Admin: 04/04/18 16:04 Dose: 100 mg Sodium Chloride (Ns) 1,000 mls @ 125 mls/hr IV CONT CRISTIAN Stop: 09/30/18 17:14 Last Admin: 04/03/18 21:50 Dose: 1,000 mls Losartan Potassium (Cozaar) 50 mg PO BID C[facility]STIAN Stop: 10/01/18 08:59 Last Admin: 04/04/18 08:07 Dose: 50 mg Melatonin (Melatonin) 3 mg PO HS [facility]STIAN Stop: 09/30/18 20:59 Last Admin: 04/03/18 21:46 Dose: 3 mg Methocarbamol (Robaxin) 750 mg PO QID [facility]IAN Stop: 10/01/18 05:59 Last Admin: 04/04/18 15:48 Dose: 750 mg Pantoprazole Sodium (Protonix) 40 mg PO DAILY [facility] Stop: 10/01/18 08:59 Last Admin: 04/04/18 10:12 Dose: 40 mg Polyethylene Glycol (Miralax) 17 gm PO DAILY PRN PRN Reason: Constipation, patient prefers Stop: 09/30/18 23:35 Last Admin: 04/04/18 10:16 Dose: 17 gm Senna/Docusate Sodium (Senokot-S) 1 tab PO BID [facility] Stop: 10/01/18 08:59 Last Admin: 04/04/18 08:07 Dose: 1 tab Discontinued Medications Gabapentin (Neurontin) 300 mg PO TID [facility] Stop: 09/30/18 21:59 Last Admin: 04/04/18 08:06 Dose: 300 mg Sodium Chloride (Ns) 1,000 mls @ 3,000 mls/hr IV ONCE ONE Stop: 04/03/18 17:25 Last Admin: 04/03/18 21:48 Dose: Not Given Departure - Departure Disposition: [facility] Acute Clinical Impression: Cervical pain, Failure to thrive in adult Condition: Fair
[2018-04-03] MEDS ORDERED: NS 1,000 ML IV ONE (17:06)
[2018-04-03] MEDS ORDERED: NS 1,000 ML IV SCH (17:15)
[2018-04-03] MEDS ORDERED: ALBUTEROL 60 PUFFS/8 GM MDI IH PRN ×2 (17:45→23:36)
--- NOTE | 2018-04-03 17:55 | ASMTCMCOM ---
CM Note CM Note Notes: Patient presents to the ER with c/o neck pain/falls s/p recent admission for cervical fusion. Patient was discharged home with [facility] on 03/30/18. Upon meeting patient, he is alert, conversive, but somewhat confused as to details of his recent hospitalization and discharge. He is able to tell me where he lives and that he has a roommate (Cain) and a sister, Mariia who arrived at the hospital as I was calling her. I have spoken to Sujatha (director of professional services RN) with [id number] who confirms that [facility] was following patient with PT/OT, and RN services. Per Sujatha, Kelechi RN was assigned to patient's RN care and had some concerns that patient may have been taking "too much" of his pain medication. Patient has been readmitted for observation and discharge needs are uncertain at this time. Mariia has accompanied patient to his room ([id number]) and is meeting with Daniel, pharmacist and home medication rec. CM to follow with discharge planning: Return with vs. SNF Date Signed: 04/03/2018 05:54 PM Electronically Signed By:Lolis Hamilton RN
[2018-04-03 18:17] LABS: PLATELET COUNT 306 10^3/uL (150-400)
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
[2018-04-03] MEDS: GABAPENTIN 300 MG CAP PO SCH (21:46)
[2018-04-03] MEDS: MELATONIN 3 MG TAB PO SCH (21:46)
[2018-04-03] MEDS: ACETAMINOPHEN 325 MG TAB PO PRN (23:06)
[2018-04-03] MEDS ORDERED: POLYETHYLENE GLYCOL 3350 17 GM PKT PO PRN (23:36)
[2018-04-04] MEDS: METHOCARBAMOL 750 MG TAB PO SCH ×4 (05:19→20:21)
[2018-04-04] MEDS: GABAPENTIN 300 MG CAP PO SCH (08:06)
[2018-04-04] MEDS: SENNOSIDES/DOCUSATE SODIUM TAB PO SCH ×2 (08:07→20:21)
[2018-04-04] MEDS: LOSARTAN POTASSIUM 50 MG TAB PO SCH ×2 (08:07→20:22)
[2018-04-04] MEDS: ENOXAPARIN 40 MG/0.4 ML SYR SC SCH (08:07)
[2018-04-04] MEDS: DILTIAZEM CD 180 MG CAP PO SCH (08:17)
[2018-04-04] MEDS: FLUTICASONE NASAL 120 SPRAYS/16 GM MDI NS SCH ×2 (08:19→21:39)
[2018-04-04] MEDS: ACETAMINOPHEN 325 MG TAB PO PRN ×2 (08:23→17:38)
--- NOTE | 2018-04-04 09:39 | PDMN ---
Medical Necessity Medical necessity: Pt meets IP criteria per & [facility]IN CG-GDC (General Discharge Criteria); est los >2 mn for eval/tx of acute encephalopathy & new onset fever s /p fall w/recent complex cervical spine surgery; requiring further workup/ monitoring, IVFs, pain management & therapies; hx chronic gait instability w/ multiple falls, chronic memory issues; per H&P & order 04/03/18
[2018-04-04] MEDS: PANTOPRAZOLE SODIUM 40 MG TAB PO SCH (10:12)
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
[2018-04-04] MEDS: GABAPENTIN 100 MG CAP PO SCH ×2 (16:04→21:39)
--- NOTE | 2018-04-04 17:10 | ASMTCMCOM ---
CM Note CM Note Notes: Pt admitted for fall after spinal surgery and confusion. Pt lives alone with 78 year old room mate who is not able to be helpful. Pt's sister Mariia [phone] also involved. OT recommending SNF, PT has not yet evaluated. [facility] also requesting pt be sent to SNF as he is current with them and they are concerned for his safety. Pt amenable to SNF. Prefers [facility] as it is near his home. Referral with non-triggered PASSR sent. CM to follow. D/C Plan: SNF pending auth at [facility] Date Signed: 04/04/2018 05:09 PM Electronically Signed By:Sue Elam
[2018-04-04] MEDS: MELATONIN 3 MG TAB PO SCH (20:21)
[2018-04-04] MEDS: ATORVASTATIN CALCIUM 40 MG TAB PO SCH (20:22)
[2018-04-04] MEDS: DOCUSATE SODIUM 100 MG CAP PO SCH (20:22)
[2018-04-05] MEDS: ACETAMINOPHEN 325 MG TAB PO PRN ×2 (00:22→07:36)
[2018-04-05] MEDS ORDERED: HYDROmorphONE/DILAUDID 1 MG/ML INJ IVP ONE (03:18)
[2018-04-05] MEDS: traMADol 50 MG TAB PO PRN ×3 (06:04→18:53)
[2018-04-05] MEDS: METHOCARBAMOL 750 MG TAB PO SCH ×4 (06:04→21:11)
[2018-04-05] MEDS: ONDANSETRON 4 MG/2 ML VIAL IVP PRN (07:49)
[2018-04-05] MEDS: GABAPENTIN 100 MG CAP PO SCH ×3 (09:21→21:09)
[2018-04-05] MEDS: LOSARTAN POTASSIUM 50 MG TAB PO SCH ×2 (09:21→21:11)
[2018-04-05] MEDS: ENOXAPARIN 40 MG/0.4 ML SYR SC SCH (09:21)
[2018-04-05] MEDS: SENNOSIDES/DOCUSATE SODIUM TAB PO SCH ×2 (09:22→21:11)
[2018-04-05] MEDS: DILTIAZEM CD 180 MG CAP PO SCH (09:22)
[2018-04-05] MEDS: PANTOPRAZOLE SODIUM 40 MG TAB PO SCH (09:22)
[2018-04-05] MEDS: FLUTICASONE NASAL 120 SPRAYS/16 GM MDI NS SCH ×2 (12:39→21:13)
[2018-04-05] MEDS: ACETAMINOPHEN 500 MG TAB PO SCH ×2 (13:41→21:10)
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
[2018-04-05] MEDS: oxyCODONE IR 5 MG TAB PO PRN (17:43)
[2018-04-05] MEDS ORDERED: NS 1,000 ML IV SCH (19:15)
[2018-04-05] MEDS: ATORVASTATIN CALCIUM 40 MG TAB PO SCH (21:09)
[2018-04-05] MEDS: DOCUSATE SODIUM 100 MG CAP PO SCH (21:10)
[2018-04-05] MEDS: MELATONIN 3 MG TAB PO SCH (21:11)
[2018-04-06] MEDS: traMADol 50 MG TAB PO PRN ×3 (01:23→17:19)
[2018-04-06] MEDS: oxyCODONE IR 5 MG TAB PO PRN ×4 (04:01→22:02)
[2018-04-06] MEDS: ACETAMINOPHEN 500 MG TAB PO SCH ×3 (05:35→22:02)
[2018-04-06] MEDS: METHOCARBAMOL 750 MG TAB PO SCH ×4 (05:36→22:03)
[2018-04-06] MEDS: DILTIAZEM CD 180 MG CAP PO SCH (09:13)
[2018-04-06] MEDS: SENNOSIDES/DOCUSATE SODIUM TAB PO SCH ×2 (09:13→22:03)
[2018-04-06] MEDS: LOSARTAN POTASSIUM 50 MG TAB PO SCH ×2 (09:14→22:03)
[2018-04-06] MEDS: GABAPENTIN 100 MG CAP PO SCH ×3 (09:14→22:02)
[2018-04-06] MEDS: ENOXAPARIN 40 MG/0.4 ML SYR SC SCH (09:14)
[2018-04-06] MEDS: FLUTICASONE NASAL 120 SPRAYS/16 GM MDI NS SCH ×2 (09:15→22:04)
[2018-04-06] MEDS: PANTOPRAZOLE SODIUM 40 MG TAB PO SCH (09:15)
[2018-04-06] MEDS: POLYETHYLENE GLYCOL 3350 17 GM PKT PO SCH (09:15)
[2018-04-06 10:20] LABS: PLATELET COUNT 319 10^3/uL (150-400)
--- NOTE | 2018-04-06 10:34 | ASMTCMCOM ---
CM Note CM Note Notes: Patient for what ever reason does not seem to have medicare, just medicaid. Will require SNF. [facility] 100 filled out and faxed this am. CM to follow. Plan: DC to SNF Date Signed: 04/06/2018 10:33 AM Electronically Signed By:Melissa Hayes RN
--- NOTE | 2018-04-06 15:15 | ASMTCMCOM ---
CM Note CM Note Notes: Patient has medicaid. Needs LTC application. [facility] 100 completed and faxed. [facility] unable to accept medicaid pending at this time. CM to follow. Plan: TBD Date Signed: 04/06/2018 02:50 PM Electronically Signed By:Melissa Hayes RN
[2018-04-06] MEDS ORDERED: IBUPROFEN 200 MG TAB PO PRN (16:24)
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
[2018-04-06] MEDS: ATORVASTATIN CALCIUM 40 MG TAB PO SCH (22:03)
[2018-04-06] MEDS: DOCUSATE SODIUM 100 MG CAP PO SCH (22:03)
[2018-04-06] MEDS: MELATONIN 3 MG TAB PO SCH (22:03)
[2018-04-07] MEDS: traMADol 50 MG TAB PO PRN ×4 (02:36→20:26)
[2018-04-07] MEDS: ACETAMINOPHEN 500 MG TAB PO SCH ×2 (05:59→13:31)
[2018-04-07] MEDS: METHOCARBAMOL 750 MG TAB PO SCH ×4 (06:00→20:26)
[2018-04-07] MEDS: ENOXAPARIN 40 MG/0.4 ML SYR SC SCH (08:15)
[2018-04-07] MEDS: PANTOPRAZOLE SODIUM 40 MG TAB PO SCH (08:15)
[2018-04-07] MEDS: SENNOSIDES/DOCUSATE SODIUM TAB PO SCH ×2 (08:15→20:25)
[2018-04-07] MEDS: LOSARTAN POTASSIUM 50 MG TAB PO SCH ×2 (08:16→20:27)
[2018-04-07] MEDS: DILTIAZEM CD 180 MG CAP PO SCH (08:16)
[2018-04-07] MEDS: GABAPENTIN 100 MG CAP PO SCH ×3 (08:16→20:25)
[2018-04-07] MEDS: oxyCODONE IR 5 MG TAB PO PRN ×3 (08:16→20:27)
[2018-04-07] MEDS: FLUTICASONE NASAL 120 SPRAYS/16 GM MDI NS SCH ×2 (08:18→20:32)
[2018-04-07] MEDS: ONDANSETRON 4 MG/2 ML VIAL IVP PRN (08:39)
[2018-04-07] MEDS: POLYETHYLENE GLYCOL 3350 17 GM PKT PO SCH (13:30)
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
--- NOTE | 2018-04-07 15:56 | ASMTCMCOM ---
CM Note CM Note Notes: Plan of care remains unchanged, [facility] 100 submitted yesterday. Per PT he has some improvement but per nursing still having gait issues. Medicaid pending vs home with [facility]. Plan: TBD Date Signed: 04/07/2018 03:56 PM Electronically Signed By:Melissa Hayes RN
[2018-04-07] MEDS: DOCUSATE SODIUM 100 MG CAP PO SCH (20:25)
[2018-04-07] MEDS: ATORVASTATIN CALCIUM 40 MG TAB PO SCH (20:27)
[2018-04-07] MEDS: MELATONIN 3 MG TAB PO SCH (20:27)
[2018-04-08] MEDS: ACETAMINOPHEN 500 MG TAB PO SCH ×4 (02:40→22:32)
[2018-04-08] MEDS: oxyCODONE IR 5 MG TAB PO PRN ×5 (03:55→22:32)
[2018-04-08] MEDS: traMADol 50 MG TAB PO PRN ×2 (05:59→20:42)
[2018-04-08] MEDS: METHOCARBAMOL 750 MG TAB PO SCH ×4 (05:59→20:41)
[2018-04-08] MEDS: ONDANSETRON 4 MG/2 ML VIAL IVP PRN (07:43)
[2018-04-08] MEDS: PANTOPRAZOLE SODIUM 40 MG TAB PO SCH (08:37)
[2018-04-08] MEDS: GABAPENTIN 100 MG CAP PO SCH ×3 (08:37→22:32)
[2018-04-08] MEDS: LOSARTAN POTASSIUM 50 MG TAB PO SCH ×2 (08:37→20:41)
[2018-04-08] MEDS: DILTIAZEM CD 180 MG CAP PO SCH (08:37)
[2018-04-08] MEDS: ENOXAPARIN 40 MG/0.4 ML SYR SC SCH (08:41)
[2018-04-08] MEDS: FLUTICASONE NASAL 120 SPRAYS/16 GM MDI NS SCH ×2 (10:49→20:46)
[2018-04-08] MEDS: POLYETHYLENE GLYCOL 3350 17 GM PKT PO SCH (10:49)
[2018-04-08] MEDS: SENNOSIDES/DOCUSATE SODIUM TAB PO SCH ×2 (10:49→20:46)
--- NOTE | 2018-04-08 13:23 | ASMTCMCOM ---
CM Note CM Note Notes: Patient plan of care reviewed in rounds. He has agreed to sign his medicaid application for longterm care. I have spoken to his sister regarding his lack of medicare and she reported that after he was released from being incarcerated, his identity needed to be validated. 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 CM to follow. Plan: TBD Date Signed: 04/08/2018 01:22 PM Electronically Signed By:Melissa Hayes RN
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
[2018-04-08] MEDS: MELATONIN 3 MG TAB PO SCH (20:41)
[2018-04-08] MEDS: IBUPROFEN 200 MG TAB PO PRN (20:41)
[2018-04-08] MEDS: ATORVASTATIN CALCIUM 40 MG TAB PO SCH (20:42)
[2018-04-08] MEDS: DOCUSATE SODIUM 100 MG CAP PO SCH (20:46)
[2018-04-09] MEDS: ACETAMINOPHEN 500 MG TAB PO SCH ×3 (05:07→21:43)
[2018-04-09] MEDS: oxyCODONE IR 5 MG TAB PO PRN ×5 (05:07→22:56)
[2018-04-09] MEDS: METHOCARBAMOL 750 MG TAB PO SCH ×4 (05:08→20:00)
[2018-04-09] MEDS: traMADol 50 MG TAB PO PRN ×3 (08:07→22:56)
[2018-04-09] MEDS: PANTOPRAZOLE SODIUM 40 MG TAB PO SCH (08:09)
[2018-04-09] MEDS: GABAPENTIN 100 MG CAP PO SCH ×3 (08:09→21:42)
[2018-04-09] MEDS: DILTIAZEM CD 180 MG CAP PO SCH (08:10)
[2018-04-09] MEDS: LOSARTAN POTASSIUM 50 MG TAB PO SCH ×2 (08:10→20:00)
[2018-04-09] MEDS: ENOXAPARIN 40 MG/0.4 ML SYR SC SCH (08:10)
[2018-04-09] MEDS: POLYETHYLENE GLYCOL 3350 17 GM PKT PO SCH (08:15)
[2018-04-09] MEDS: FLUTICASONE NASAL 120 SPRAYS/16 GM MDI NS SCH ×2 (08:16→20:00)
[2018-04-09] MEDS: SENNOSIDES/DOCUSATE SODIUM TAB PO SCH ×2 (08:17→20:00)
[2018-04-09] MEDS: ONDANSETRON 4 MG/2 ML VIAL IVP PRN (10:57)
--- NOTE | 2018-04-09 17:32 | ASMTCMCOM ---
CM Note CM Note Notes: Spoke with pt in the room. Also conferred with PT, RN and physician and pt's sister Mariia. PT now recommending home with C due to pt's increased mentation and balance. Called sister Mariia MASTERSON, informed her and she is comfortable with plan, as roommate Rober will be able to help pt log medication times. [facility] referral sent and have accepted. CM to follow. Discharge likely tomorrow with [facility]. Date Signed: 04/09/2018 05:31 PM Electronically Signed By:Sue Elam
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
[2018-04-09] MEDS: ATORVASTATIN CALCIUM 40 MG TAB PO SCH (20:00)
[2018-04-09] MEDS: DOCUSATE SODIUM 100 MG CAP PO SCH (20:00)
[2018-04-09] MEDS: MELATONIN 3 MG TAB PO SCH (20:00)
[2018-04-10] MEDS: oxyCODONE IR 5 MG TAB PO PRN ×2 (03:04→09:13)
[2018-04-10] MEDS: METHOCARBAMOL 750 MG TAB PO SCH ×2 (05:13→12:22)
[2018-04-10] MEDS: traMADol 50 MG TAB PO PRN ×2 (05:13→12:22)
[2018-04-10] MEDS: ACETAMINOPHEN 500 MG TAB PO SCH (05:13)
[2018-04-10] MEDS: ONDANSETRON 4 MG/2 ML VIAL IVP PRN (07:57)
[2018-04-10] MEDS: GABAPENTIN 100 MG CAP PO SCH (08:11)
[2018-04-10] MEDS: IBUPROFEN 200 MG TAB PO PRN (08:11)
[2018-04-10] MEDS: ENOXAPARIN 40 MG/0.4 ML SYR SC SCH (08:11)
[2018-04-10] MEDS: PANTOPRAZOLE SODIUM 40 MG TAB PO SCH (08:12)
[2018-04-10] MEDS: DILTIAZEM CD 180 MG CAP PO SCH (08:12)
[2018-04-10 08:13] VITALS: BP 181/84
[2018-04-10] MEDS: SENNOSIDES/DOCUSATE SODIUM TAB PO SCH (08:16)
[2018-04-10] MEDS: POLYETHYLENE GLYCOL 3350 17 GM PKT PO SCH (08:16)
[2018-04-10] MEDS: LOSARTAN POTASSIUM 50 MG TAB PO SCH (08:20)
[2018-04-10] MEDS: FLUTICASONE NASAL 120 SPRAYS/16 GM MDI NS SCH (09:18)
--- NOTE | 2018-04-10 10:51 | PDIAF ---
- Diagnosis Code Status: Full Code - Medication Management Group Home Antibiotics: none Discharge Medications: electronically signed and located in the Home Medication List. PICC Care - Routine: N/A - Orders Services needed: Home Usp Care Face to Face: I certify that this patient was under my care and that I had the required [id number] encounter meeting the encounter requirements on the discharge day. My findings support the fact that the patient is homebound as defined in Home Care Face to Face Continued: CMS Chapter 7 Medicare Benefits Manual 30.1.1 , The condition of the patient is such that there exists a normal inability to leave home and consequently, leaving home would require a considerable and taxing effort. Isolation Type: None Oxygen: none Diet Recommendation: no restrictions on diet Diet Texture: Regular Texture Diet Tube feeding: n/a Aguero: No Activity/Weight Bearing Restrictions: no restrictions except must wear c collar 23/[address] Arambula Additional Instructions: keep collar on at all times until advised otherwise by Dr Arambula - Follow Up Care Current Providers and Referrals: Sandy Gonzalez PA [Primary Care Provider] - 1-2 days Everton Arambula MD [Medical Doctor] - follow up as scheduled (csll to verify appt time)
--- NOTE | 2018-04-10 12:32 | ASMTDCNOTE ---
Case Management Discharge Discharge Order Complete? Answers: Yes Patient to Obtain Answers: Other Notes: [facility] bedside Medications delivery Transportation Arranged Answers: Family/Friends Transport will Pick (Date 04/10/2018 12:45 PM & Time) Faxed Final Orders Answers: Yes Agency/Facility Transfer Answers: Yes Report Printed & Faxed to Receiving Agency Family Notified Answers: Yes Notes: pt called Discharge Comments Notes: Spoke with pt and RN in the room. [facility] peanut pick[facility]. Called [facility] to notify of pt discharge. Pt stated his ride would be here in 15 minutes. RN given number for report to [facility]. Pt to work with [facility] from home. No further CM needs at this time. Date Signed: 04/10/2018 12:31 PM Electronically Signed By:Sue Elam
--- NOTE | 2018-04-10 12:33 | ASDISCHSUM ---
Discharge Information Plan Status:Home with Home Health Medically Cleared to Leave:04/09/2018 Discharge Date:04/09/2018 CM D/C Disposition:Home Health Service ADT D/C Disposition:Home Health Service Projected Discharge Date:04/07/2018 11:00 AM Transportation at D/C: Discharge Delay Reason: Follow-Up Date:04/07/2018 11:00 AM Discharge Slot: Final Diagnosis:syncope after cervical fusion Placement Information Referral Type:*[facility]/SNF Referral ID:[id number] Provider Name: Address 1: Phone Number: Address 2: Fax Number: City: Selection Factors: State: Referral Type:*Home Health Care Services Referral ID:[id number] Provider Name[facility] [address] Address 2: City:[place] Selection Factors: State:[place] Patient Contact Information Contact Name:MARIA LUZ Relationship:Sister Address: Work Phone: City: [facility] Phone: State/Zip Code: Email: Financial Information Financial Class:Medicaid Primary Plan Desc:[place] Primary Plan Number:[id number] Secondary Plan Desc: Secondary Plan Number: Assessment Information [facility] CM Progress Note CM Note CM Note Notes: Patient presents to the ER with c/o neck pain/falls s/p recent admission for cervical fusion. Patient was discharged home with [facility] on 03/30/18. Upon meeting patient, he is alert, conversive, but somewhat confused as to details of his recent hospitalization and discharge. He is able to tell me where he lives and that he has a roommate (Cain) and a sister, Mariia who arrived at the hospital as I was calling her. I have spoken to Sujatha (chain maker loom control RN) with [id number] who confirms that [facility] was following patient with PT/OT, and RN services. Per Sujatha, Kelechi RN was assigned to patient's RN care and had some concerns that patient may have been taking "too much" of his pain medication. Patient has been readmitted for observation and discharge needs are uncertain at this time. Mariia has accompanied patient to his room (141) and is meeting with Daniel, pharmacist and home medication rec. CM to follow with discharge planning: Return with vs. SNF Date Signed: 04/03/2018 05:54 PM Electronically Signed By:Lolis Hamilton RN LACE STEVEN Length of stay for Answers: 7-13 days current admission Acuity / Level of Answers: Yes Care: Did the patient have an inpatient admission? Comorbidities - select Answers: Chronic pulmonary disease all that apply Other Notes: cervical stenosis # of Emergency department Answers: 1-2 visits in the last 6 months Score: 12 Date Signed: 04/10/2018 12:32 PM Electronically Signed By:Sue Elam [facility] Progress Note CM Note CM Note Notes: Pt admitted for fall after spinal surgery and confusion. Pt lives alone with 78 year old room mate who is not able to be helpful. Pt's sister Mariia [phone] also involved. OT recommending SNF, PT has not yet evaluated. [facility] also requesting pt be sent to SNF as he is current with them and they are concerned for his safety. Pt amenable to SNF. Prefers [facility] as it is near his home. Referral with non-triggered [facility] sent. CM to follow. D/C Plan: SNF pending auth at [facility] Date Signed: 04/04/2018 05:09 PM Electronically Signed By:Sue Elam [facility] CM Progress Note CM Note CM Note Notes: Patient for what ever reason does not seem to have medicare, just medicaid. Will require SNF. ULTC 100 filled out and faxed this am. CM to follow. Plan: DC to SNF Date Signed: 04/06/2018 10:33 AM Electronically Signed By:Melissa Hayes RN [facility] CM Progress Note CM Note CM Note Notes: Patient has medicaid. Needs LTC application. ULTC [address] [facility] unable to accept medicaid pending at this time. CM to follow. Plan: TBD Date Signed: 04/06/2018 02:50 PM Electronically Signed By:Melissa Hayes RN [facility] CM Progress Note CM Note CM Note Notes: Plan of care remains unchanged, ULTC 100 submitted yesterday. Per PT he has some improvement but per nursing still having gait issues. Medicaid pending vs home with [facility]. Plan: TBD Date Signed: 04/07/2018 03:56 PM Electronically Signed By:Melissa Hayes RN [facility] CM Progress Note CM Note CM Note Notes: Patient plan of care reviewed in rounds. 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 I have spoken to his sister regarding his lack of medicare and she reported that after he was released from being incarcerated, his identity needed to be validated. 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 CM to follow. Plan: TBD Date Signed: 04/08/2018 01:22 PM Electronically Signed By:Melissa Hayes RN [facility] CM Progress Note CM Note CM Note Notes: Spoke with pt in the room. Also conferred with PT, RN and physician and pt's sister Mariia. PT now recommending home with HH due to pt's increased mentation and balance. Called sister Mariia MASTERSON, informed her and she is comfortable with plan, as roommate Rober will be able to help pt log medication times. [facility] referral sent and have accepted. CM to follow. Discharge likely tomorrow with [facility]. Date Signed: 04/09/2018 05:31 PM Electronically Signed By:Sue Elam Case Management Discharge Plan Note Case Management Discharge Discharge Order Complete? Answers: Yes Patient to Obtain Answers: [facility] Transportation Arranged Answers: Family/Friends Transport will Pick (Date 04/10/2018 12:45 PM & Time) Faxed Final Orders Answers: Yes Agency/Facility Transfer Answers: Yes Report Printed & Faxed to Receiving Agency Family Notified Answers: Yes Notes: pt called Discharge Comments Notes: Spoke with pt and RN in the room. 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 Called [facility] to notify of pt discharge. Pt stated his ride would be here in 15 minutes. RN given number for report to [facility]. Pt to work with [facility] from home. No further CM needs at this time. Date Signed: 04/10/2018 12:31 PM Electronically Signed By:Sue Elam Intervention Information Intervention Type:*Incorrect Registration Date of Service:04/03/2018 09:20 AM Patient Type:Inpatient Staff Member:ZACHERY Zhu, Isatu Hours: Discipline: Severity: Comment:
== END 2018-04-10 13:19 | disposition home health service (06) | DRG 52 ==
LOC: EDUNIT# → OBSVTOIN 17:03 → F1N 17:30
PROVIDERS: ADMIT Internal Medicine; ATTEND Internal Medicine
DX: G93.49 Other encephalopathy (principal); E86.0 Dehydration; E78.5 Hyperlipidemia, unspecified; Z98.1 Arthrodesis status; R29.6 Repeated falls; R62.7 Adult failure to thrive; R26.89 Other abnormalities of gait and mobility; I10 Essential (primary) hypertension; J45.909 Unspecified asthma, uncomplicated
CPT/HCPCS: 96374; 97116-GP; 97161-GP; 97165-GO; 97530-GO; 97530-GP; 97535-GO; G8978-GP-CI; G8978-GP-CK; G8979-GP-CI; G8980-GP-CI; J1170; J1650; J2405

== ENCOUNTER → 2018-04-30 | Outpatient (CLI) | payer MEDICAID | LOC: FIMAGING 09:23 | PROVIDERS: ATTEND Neurological Surgery | DX: Z09 Encounter for follow-up examination after completed treatment for conditions other than malignant neoplasm (principal); Z98.1 Arthrodesis status ==

== ENCOUNTER 2018-05-13 12:19 | Day surgery (SDC) | payer MEDICAID ==
[2018-05-13] MEDS ORDERED: fentaNYL 100 MCG/2 ML INJ IVP PRN (12:41)
[2018-05-13] MEDS ORDERED: ONDANSETRON 4 MG/2 ML VIAL IVP ONE (12:41)
[2018-05-13] MEDS ORDERED: FLUMAZENIL 0.5 MG/5 ML MDV IVP PRN (12:41)
[2018-05-13] MEDS ORDERED: NALOXONE HCL 0.4 MG/ML INJ IVP PRN (12:41)
[2018-05-13] MEDS ORDERED: MEPERIDINE 25 MG/ML SYR IVP PRN (12:41)
[2018-05-13] MEDS ORDERED: MIDAZOLAM 2 MG/2 ML VIAL IVP PRN (12:41)
[2018-05-13] MEDS ORDERED: NS 1,000 ML IV SCH (12:45)
[2018-05-13] MEDS ORDERED: TRIAMCINOLONE ACETONIDE 200 MG/5 ML MDV IM ONE (12:54)
[2018-05-13] MEDS ORDERED: IOPAMIDOL (ISOVUE-M 300) 15 ML VIAL ONE (12:55)
--- NOTE | 2018-05-13 13:41 | PDPROPOC ---
Sedation Plan of Care Sedation Plan of Care: vital signs stable, mental status noted, patient educated of risks, benefits, alternatives, patient can tolerate sedation ASA Classification: ASA 2 Planned drugs: fentanyl, midazolam Mallampati Score: Class 1 Mallampati Reference Image: Patient passed 3-3-2 rule?: No
--- NOTE | 2018-05-13 13:43 | PDGENHP ---
History & Physical Chief Complaint: recurrent LBP History of Present Illness: Low back pain to RT gluteal area. Previous injection really helped. Pertinent Past, Social, Family History: EGD, Colonoscopy, hernia surgery, hyperlipidemia. Relevant Physical Exam: 01/09 pain Cardiorespiratory Assessment: rrr, cta
[2018-05-13] MEDS ORDERED: fentaNYL 100 MCG/2 ML INJ ONE (13:53)
[2018-05-13] MEDS ORDERED: ONDANSETRON 4 MG/2 ML VIAL IVP PRN (14:16)
--- NOTE | 2018-05-13 14:18 | PDRADPN ---
Radiology Procedure Note Date of Procedure: 05/13/18 Radiologist: Diana Martin Anesthesia: IV Sedation Indication: RECURRENT LBP Procedure: L2 SNRB AND TFESI Inf/Abcess present in the surg proc area at time of surgery?: No
[2018-05-13 14:37] VITALS: BP 141/80
== END 2018-05-13 15:25 | disposition home or self-care (01) ==
LOC: FIMAGING 12:19
PROVIDERS: ATTEND Urology
DX: M48.061 Spinal stenosis, lumbar region without neurogenic claudication (principal); M54.16 Radiculopathy, lumbar region; E78.5 Hyperlipidemia, unspecified
CPT/HCPCS: J3010; J3301; Q9967

== ENCOUNTER 2018-05-25 10:20 | Emergency (ER) | payer MEDICAID ==
--- NOTE | 2018-05-25 10:45 | EDPHY ---
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 He reportedly felt a pop in his right posterior shoulder after picking up a milk bottle. He has a prior history of cervical spine surgery. He is complaining of some paresthesias in his right 4th and 5th fingers. The patient reportedly attempted seeing orthopedic surgeon today however was unable to be seen secondary to his insurance status. Patient denies any fever, cough or congestion. He denies any additional acute complaints. REVIEW OF SYSTEMS: A comprehensive 10 point review of systems is otherwise negative aside from elements mentioned in the history of present illness. Source: Patient - Personal History Current Tetanus/Diphtheria Vaccine: Yes Tetanus Vaccine Date: < 10 years - Medical/Surgical History Hx Asthma: Yes Hx Chronic Respiratory Disease: No Hx Diabetes: No Hx Cardiac Disease: Yes Hx Renal Disease: No Hx Cirrhosis: No Hx Alcoholism: No Hx HIV/AIDS: No Hx Splenectomy or Spleen Trauma: No Other PMH: PSHx: hernia repair, tonsillectomy/adenoidectomy. PMHx: high cholesterol, arthritis, prostate problems, memory issues, HTN, knee surgery meniscus tear 2018, spinal stenosis - Social History Smoking Status: Former smoker - Physical Exam Exam: General Appearance: Alert, no distress Eyes: Pupils equal and round no pallor or injection ENT, Mouth: Mucous membranes moist Respiratory: There are no retractions, lungs are clear to auscultation Cardiovascular: Regular rate and rhythm Gastrointestinal: Abdomen is soft and nontender, no masses, bowel sounds normal Neurological: 5/5 strength noted bilateral upper lower extremities, normal sensory exam Skin: Warm and dry, no rashes Musculoskeletal: Neck is supple nontender Extremities: Tenderness to palpation right posterior chest wall primarily in the rhomboid area Constitutional: Initial Vital Signs Temperature (C) 36.9 C 05/25/18 10:29 Heart Rate 97 05/25/18 10:29 Respiratory Rate 18 05/25/18 10:29 Blood Pressure 194/100 H 05/25/18 10:29 O2 Sat (%) 96 05/25/18 10:29 O2 Delivery Mode Room Air Allergies/Adverse Reactions: No Known Allergies Allergy (Verified 05/25/18 10:29) Home Medications: Medication Instructions Recorded Atorvastatin Calcium [Lipitor 40 40 mg PO HS 12/02/17 mg (*)] Diltiazem Xr [Dilacor Xr 180 MG 180 mg PO DAILY 12/02/17 (RX)] Omeprazole Magnesium [Acid Technical Sales Representative] 20 mg PO DAILY 12/02/17 Terazosin HCl [Hytrin 2 MG (*)] 2 mg PO BID 12/02/17 Albuterol [Proventil Inhaler HFA 1 - 2 puffs IH DAILY PRN 03/06/18 (*)] Fluticasone Nasal [Flonase Nasal 2 sprays NASAL BID 03/06/18 [place]] Losartan Potassium [Cozaar 50 mg 50 mg PO BID 03/06/18 (*)] Sennosides/Docusate Sodium 1 - 2 tab PO BID tab 03/27/18 [Senokot-S] Acetaminophen [Tylenol ES 500 mg 1,000 mg PO Q8HRS tab 04/10/18 (*)] Gabapentin [Neurontin 100 MG (*)] 200 mg PO TID #60 cap 04/10/18 Hydrocodone/APAP 5/325 [Bluff 1 - 2 each PO Q6 PRN #20 tab 05/25/18 5/325] Ibuprofen [Motrin (*)] 600 mg PO QID PRN #30 tab 05/25/18 Lidocaine 5% [Lidoderm 5% Patch] 1 ea TD DAILY #12 patch 05/25/18 Lidocaine 5% [Lidoderm 5% Patch] 1 ea TD DAILY #12 patch 05/25/18 Medical Decision Making - Diagnostics Imaging Results: Imaging Impressions Shoulder X-Ray 05/25/18 10:52 Impression: Right AC joint arthritis. Negative right shoulder joint. ED Course/Re-evaluation: Patient presents to the ED with complaints of posterior shoulder pain in the setting of a recent soft tissue injury. 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 The patient's x-ray demonstrates no evidence of fracture or dislocation. The patient will be placed in a sling. He is referred to our on-call orthopedic surgeon for further evaluation. Blood pressure recheck was found to be 155/90 at discharge. The patient will be given a prescription for lidocaine patch. He is also given a prescription for 600 mg ibuprofen tablets. Differential Diagnosis: Differential diagnosis considered includes fracture, sprain, dislocation Departure - Departure Disposition: Home, Routine, Self-Care Clinical Impression: Hypertension Right shoulder strain Qualifiers: Encounter type: initial encounter Qualified Code(s): S46.911A - Strain of unspecified muscle, fascia and tendon at shoulder and upper arm level, right arm , initial encounter Condition: Good Instructions: Musculoskeletal Pain (ED) Additional Instructions: 1. Lidocaine patches as prescribed 2. Take Ibuprofen or Motrin 600 mg by mouth three times a day. 3. Follow up with the orthopedic surgeon you have been referred to for a recheck. 4. [facility] for a blood pressure recheck within the week. Referrals: Sandy Gonzalez PA [Primary Care Provider] - As per Instructions Prescriptions: Hydrocodone/APAP 5/325 [Bluff 5/325] 1 - 2 each PO Q6 PRN #20 tab PRN Reason: for pain Ibuprofen [Motrin (*)] 600 mg PO QID PRN #30 tab PRN Reason: for pain Lidocaine 5% [Lidoderm 5% Patch] 1 ea TD DAILY #12 patch Lidocaine 5% [Lidoderm 5% Patch] 1 ea TD DAILY #12 patch
[2018-05-25 11:50] VITALS: BP 160/82
== END 2018-05-25 11:45 | disposition home or self-care (01) ==
DX: S46.911A Strain of unspecified muscle, fascia and tendon at shoulder and upper arm level, right arm, initial encounter (principal); X50.9XXA Other and unspecified overexertion or strenuous movements or postures, initial encounter; I10 Essential (primary) hypertension
CPT/HCPCS: A4565; L3980

== ENCOUNTER → 2018-06-23 | Outpatient (CLI) | payer MEDICAID | LOC: FIMAGING 13:52 | PROVIDERS: ATTEND Neurological Surgery | DX: M47.12 Other spondylosis with myelopathy, cervical region (principal); M48.02 Spinal stenosis, cervical region; Z98.1 Arthrodesis status; Z09 Encounter for follow-up examination after completed treatment for conditions other than malignant neoplasm ==

== ENCOUNTER 2018-10-02 14:26 | Emergency (ER) | payer MEDICAID ==
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
[2018-10-02] MEDS ORDERED: IBUPROFEN 800 MG TAB PO ONE (15:00)
[2018-10-02] MEDS ORDERED: DIAZEPAM 5 MG TAB PO ONE (15:00)
[2018-10-02 16:27] VITALS: BP 149/69
== END 2018-10-02 16:27 | disposition home or self-care (01) ==
DX: S16.1XXA Strain of muscle, fascia and tendon at neck level, initial encounter (principal); R51 Headache; V49.49XA Driver injured in collision with other motor vehicles in traffic accident, initial encounter; Y92.410 Unspecified street and highway as the place of occurrence of the external cause; Z98.1 Arthrodesis status

== ENCOUNTER 2018-10-14 12:05 | Day surgery (SDC) | payer MEDICAID ==
[2018-10-14] MEDS ORDERED: LIDOCAINE 1% 300 MG/30 ML SDV ONE (12:36)
[2018-10-14] MEDS ORDERED: IOPAMIDOL (ISOVUE-M 300) 15 ML VIAL ONE (12:37)
[2018-10-14] MEDS ORDERED: DEPO METHYLPREDNISOLONE 40 MG/ML SDV ONE (12:39)
[2018-10-14] MEDS ORDERED: TRIAMCINOLONE ACETONIDE 200 MG/5 ML MDV IM ONE (12:42)
[2018-10-14] MEDS ORDERED: fentaNYL 100 MCG/2 ML INJ ONE (13:07)
[2018-10-14] MEDS ORDERED: MIDAZOLAM 2 MG/2 ML VIAL ONE (13:07)
[2018-10-14] MEDS ORDERED: NALOXONE HCL 0.4 MG/ML INJ ONE (13:07)
[2018-10-14] MEDS ORDERED: FLUMAZENIL 0.5 MG/5 ML MDV IVP ONE (13:07)
[2018-10-14] MEDS ORDERED: MEPERIDINE 25 MG/ML SYR IVP PRN (13:23)
[2018-10-14] MEDS ORDERED: FLUMAZENIL 0.5 MG/5 ML MDV IVP PRN (13:23)
[2018-10-14] MEDS ORDERED: NALOXONE HCL 0.4 MG/ML INJ IVP PRN (13:23)
[2018-10-14] MEDS ORDERED: MIDAZOLAM 2 MG/2 ML VIAL IVP PRN (13:23)
[2018-10-14] MEDS ORDERED: fentaNYL 100 MCG/2 ML INJ IVP PRN (13:23)
[2018-10-14] MEDS ORDERED: NS 1,000 ML IV SCH (13:30)
[2018-10-14] MEDS ORDERED: ONDANSETRON 4 MG/2 ML VIAL IVP PRN (13:51)
--- NOTE | 2018-10-14 13:52 | PDRADPN ---
Radiology Procedure Note Date of Procedure: 10/14/18 Radiologist: Laureano Cardenas Anesthesia: IV Sedation Pre-op Diagnosis: back pain Post-op Diagnosis: same Procedure: R L2 SNRB Inf/Abcess present in the surg proc area at time of surgery?: No
--- NOTE | 2018-10-14 13:52 | PDRADPRE ---
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
--- NOTE | 2018-10-14 13:52 | PDPROPOC ---
Sedation Plan of Care ASA Classification: ASA 2 Mallampati Score: Class 2 Mallampati Reference Image:
[2018-10-14 14:22] VITALS: BP 128/91
== END 2018-10-14 14:29 | disposition home or self-care (01) ==
LOC: FIMAGING 12:05
PROVIDERS: ATTEND Radiology Diagnostic Radiology
PROC: BR191ZZ Fluoroscopy of Lumbar Spine using Low Osmolar Contrast (ICD-10-PCS; principal; 2018-10-14 13:37)
PROC: 3E0S33Z Introduction of Anti-inflammatory into Epidural Space, Percutaneous Approach (ICD-10-PCS; principal; 2018-10-14 13:37)
PROC: 3E0S3BZ Introduction of Anesthetic Agent into Epidural Space, Percutaneous Approach (ICD-10-PCS; principal; 2018-10-14 13:37)
DX: M48.061 Spinal stenosis, lumbar region without neurogenic claudication (principal); M54.16 Radiculopathy, lumbar region
CPT/HCPCS: J1030; J2250; J2310; J3010; J3301; Q9967

== ENCOUNTER → 2018-10-21 | Outpatient (CLI) | payer MEDICAID | LOC: BMCIMAGING 10:48 | PROVIDERS: ATTEND Orthopaedic Surgery Hand Surgery | DX: M25.531 Pain in right wrist (principal); R93.6 Abnormal findings on diagnostic imaging of limbs ==

== ENCOUNTER 2018-11-22 18:24 | Emergency (ER) | payer MEDICAID | END 2018-11-22 22:01 | disposition home or self-care (01) ==